=== PATIENT | female | born 1945 | race Caucasian/White ===

== ENCOUNTER 2017-06-24 10:42 | Day surgery (SDC) | payer MEDICARE, MEDICAID, SELFPAY ==
--- NOTE | 2017-06-24 | IMM_PTH ---
PATIENT: GARY MORRIS LOC: [facility] U#:[id number] AGE/SX: 71/F ROOM: RE06/24/[address]: Dr. Constantine Moreno MD : 1945 BED: DIS: 06/24/2017 SPEC #: [id number] RECD: 06/25/17 12:01 STATUS: JESUS ALBERTO SAMIRA #: [id number] MATIAS: 06/24/17 00:[address]: Constantine Moreno DEPT: IMMUNOHISTOCHEMISTRY RECD BY: Pebbles Davenport ENTERED: 06/25/17 12:03 SP TYPE: IMMUNO OTHR DR: Dr. Solomon Kaminski MD Tissues: A - Duodenum, NOS B - Stomach, NOS Procedures: H Pylori (initial) SMA (add) DESMIN (add) Vimentin (initial) S-100 (add) PHYSICIAN & INSTITUTION [place] [id number] SPECIMEN INFORMATION: Tissue Source: A ? Duodenal biopsy, B ? Antral biopsy Clinical Info: Dysphagia; diarrhea Specimen Number: [id number] A & B CPT code: 03205 x2, 47910 x3 METHODOLOGY: Deparaffinized sections of prefer/formalin-fixed tissue or PAP/DQ stained slides are incubated with monoclonal/polyclonal antibodies/oligonucleotide probes. Localization is made via biotin free immunoperoxidase method. Appropriate controls are performed and reacted as expected. Results on target cell population are indicated in the following table: RESULTS: ANTIBODY / CLONE RESULT Block A S-100 (4C4.9) negative Vimentin (V9) negative Actin (1A4) negative Desmin (CE-R-11) negative Block B H Pylori (polyclonal) negative These tests were developed and their performance characteristics determined by [facility]. They may not have been cleared or approved by the U.S. Food and Drug Administration. The FDA has determined that such clearance or approval is not necessary. INTERPRETATION: A. Duodenal biopsy: Duodenal mucosa, no pathologic diagnosis. B. Antral biopsy: Negative for Helicobacter pylori organisms. SJ:andre 06/28/17
--- NOTE | 2017-06-24 | EGD_PTH ---
PATIENT: GARY MORRIS LOC: [facility] U#:[id number] AGE/SX: 71/F ROOM: RE06/24/[address]: Dr. Constantine Moreno MD : 1945 BED: DIS: 06/24/2017 SPEC #: [id number] RECD: 06/24/17 14:29 STATUS: YURIRyan SAMIRA #: [id number] MATIAS: 06/24/17 00:[address]: Constantine Moreno DEPT: SURGICAL PATHOLOGY RECD BY: Marvin Guzman ENTERED: 06/24/17 14:30 SP TYPE: EGD BIOPSY GRICELDA DR: Dr. Solomon Kaminski MD Tissues: A - Duodenum, NOS B - Gastric mucous membrane C - Gastric mucous membrane D - Esophageal mucous membrane E - Esophageal mucous membrane F - COLON BIOPSY G - Sigmoid colon biopsy Procedures: Surgery Specimen Level IV HEADER OPERATION: EGD; colonoscopy PRE-OP DIAGNOSIS: Dysphagia; diarrhea TISSUE SUBMITTED: A ? Duodenal biopsy, B ? Antral biopsy for H. pylori and path, C ? GE junction biopsy, D ? Distal esophageal biopsy, E ? Mid esophageal biopsy, F ? Random colon biopsies, G ? Distal sigmoid polyp biopsy MICROSCOPIC DIAGNOSIS A. Duodenal biopsy: Fragment of duodenal mucosa, no pathologic diagnosis. See comment.. B. Antral biopsy: Mild gastritis. C. GE junction, biopsy: Fragment of squamous epithelium, no pathologic diagnosis. D. Distal esophageal biopsy: Fragments of squamous epithelium, no pathologic diagnosis. E. Mid esophageal biopsy: Fragments of squamous epithelium, no pathologic diagnosis. F. Colon, random biopsy: Fragments of colonic mucosa, no pathologic diagnosis. G. Distal sigmoid polyp, biopsy: Fragments of hyperplastic polyp. SJ:andre 06/25/17 COMMENT A. Immunohistochemistry ([id number]) supports the above diagnosis. B. The results of immunohistochemistry for Helicobacter pylori will be reported separately ([id number]). Case has been reviewed in consultation with Dr. Hall who concurs with the above diagnosis. IDC:AM MICROSCOPIC DESCRIPTION Slides are reviewed. B. The specimen shows fragments of gastric mucosa with chronic inflammatory cell infiltrates in the lamina propria consisting of lymphocytes and plasma cells, consistent with mild chronic gastritis. GROSS DESCRIPTION A - Received in fixative is one container labeled with the patient's name and designated duodenal biopsy. The specimen consists of one irregular fragment of light [place] soft tissue that measures 0.4 x 0.3 x 0.1 cm. The specimen is totally submitted in one cassette. B - Received in fixative is one container labeled with the patient's name and designated antral biopsy. The specimen consists of multiple irregular fragments of light [place] soft tissue that in aggregate measure 1 x 0.2 x 0.1 cm. The specimen is totally submitted in one cassette. C - Received in fixative is one container labeled with the patient's name and designated GE junction biopsy. The specimen consists of two irregular fragments of light [place] soft tissue that in aggregate measure 0.5 x 0.3 x 0.1 cm. The specimen is totally submitted in one cassette. D - Received in fixative is one container labeled with the patient's name and designated distal esophageal biopsy. The specimen consists of one irregular fragment of light [place] soft tissue that measures 0.5 x 0.2 x 0.1 cm. The specimen is totally submitted in one cassette. E - Received in fixative is one container labeled with the patient's name and designated mid esophageal biopsy. The specimen consists of multiple irregular fragments of light [place] soft tissue that in aggregate measure 1 x 0.2 x 0.1 cm. The specimen is totally submitted in one cassette. F - Received in fixative is one container labeled with the patient's name and designated random colon biopsy. The specimen consists of multiple irregular fragments of light [place] soft tissue that in aggregate measure 1.5 x 0.5 x 0.1 cm. The specimen is totally submitted in one cassette. G - Received in fixative is one container labeled with the patient's name and designated distal sigmoid polyp biopsy. The specimen consists of multiple irregular fragments of light [place] soft tissue that in aggregate measure 0.5 x 0.5 x 0.1 cm. The specimen is totally submitted in one cassette. / SJ:andre 06/24/17 TC:1 CPT: 14372 x7
[2017-06-24 11:00] VITALS: BP 151/73; PULSE 77; RESP 16; TEMP 36.9; O2SAT 98; BMI 23.1
[2017-06-24 12:50] VITALS: BP 135/73; BP 151/73; PULSE 77; RESP 18; TEMP 36.6; O2SAT 99
--- NOTE | 2017-06-24 12:55 | OP.PCM_ITS ---
Problem List (1) Diarrhea Status: Acute (2) Difficulty swallowing Status: Acute Qualifiers: Report of Operation Date of Procedure: 06/24/17 Pre-Operative Diagnosis: Difficulties with swallowing with obstruction to pills. Weight loss. Intractable diarrhea Post-Operative Diagnosis: Moderate hiatal hernia, mild distal esophagitis, active antral gastritis. Normal-appearing colon except for diverticulosis. 5 mm sessile polyp of the distal sigmoid. Surgery/Procedure Performed:: Esophagogastroduodenoscopy with duodenal and antral and EG junction and distal esophagus and mid esophageal biopsies colonoscopy with random colonic biopsies and cold forcep biopsy removal of distal sigmoid polyp Description of Surgical Findings:: Timeout and informed consent was obtained. 71-year-old female was taken to the endoscopy suite. Her oropharynx was anesthetized with Topex. She was placed in a left lateral decubitus position. Because of increased procedural risks she underwent monitored anesthesia care. GAF gastroscope was inserted and soft ligament advanced proximal mid distal esophagus. The EG junction was at 35 cm. Moderate hiatal hernia noted. Some very minimal distal esophagitis suspected. The scope was advanced in the stomach. Diffuse erythema of the antrum noted. The scope was advanced through the pylorus and the first and second portions of the duodenum were inspected. This did not appear to be grossly remarkable. Duodenal biopsy was obtained. The scope was withdrawn back in the stomach retroflexed. The hiatal hernia noted. The cardia otherwise was not remarkable. The scope was placed back in antegrade viewing position. The what appeared to be active antral gastritis was identified. Biopsies were obtained of the antrum. Excess fluid and air was aspirated free. The scope was withdrawn to the e.g. junction where biopsy was obtained. Additional biopsies were then obtained of the distal and midesophagus. Excess fluid and air was aspirated free the procedure was completed with the patient tolerating it well. Digital rectal exam performed. Slightly lax anal tone. Moderate internal/ external hemorrhoids. No mass lesions. Flexible colonoscope inserted the rectum advanced was somewhat tortuous sigmoid colon then fairly readily advanced to the transverse colon with transabdominal pressure was nicely advanced to the cecum. The cecum ileocecal valve area was nicely achieved. Bowel prep was quite good. The scope was carefully withdrawn from the ascending transverse descending and sigmoid colon. Sigmoid diverticulosis was identified. There is no evidence of acute inflammatory change. Random colonic biopsies were obtained throughout the colon. What appear to be a diminutive 5 mm sessile polyp of the distal sigmoid was identified. Cold forceps were used to sample and eradicate that lesion. The scope was withdrawn in the rectum retroflex anorectal verge inspected hemorrhoidal changes noted. Excess fluid and air was aspirated free the procedure was completed with the patient tolerating it well. Impression Moderate hiatal hernia. Active antral gastritis. Biopsies pending. The patient is already on twice-daily treatment with omeprazole. Grossly normal-appearing colon except for sigmoid diverticulosis. Diminutive sessile polyp of the distal sigmoid. Random colonic biopsies pending. The active gastritis likely correlates with the patient's symptoms of dysphagia as does the presence of her hiatal hernia. We will await biopsy results. The patient unfortunately is already on proton pump inhibitor therapy. Would need to consider whether the addition of sucralfate Would offer benefit. Colon Grossly appears to be normal other than for diverticulosis and a diminutive polyp which was removed. Random colonic biopsies are pending. Grossly the etiology to her diarrhea is not determined. Copies of this report will be returned to her primary care physician Dr. Gordy Moreno M.D., F.A.C.S. Previous colonoscopy was remote next colonoscopy recommended approximately 5 years pending pathology on the polyp Scope was inserted at 1219. And then the upper endoscopy was completed at 1225. The lower endoscopy started at 1229. The cecum was reached at 1236. The procedure was completed at 1243. Type of Anesthesia:: MAC
[2017-06-24 13:00] VITALS: BP 150/73; BP 151/73; PULSE 72; RESP 18; O2SAT 97
[2017-06-24 13:05] VITALS: BP 119/69; BP 151/73; PULSE 74; RESP 18; O2SAT 95
[2017-06-24 13:10] VITALS: BP 138/68; BP 151/73; PULSE 68; RESP 18; TEMP 36.8; O2SAT 94
[2017-06-24 13:43] VITALS: BP 151/73
== END 2017-06-24 13:43 | disposition home or self-care (01) ==
LOC: EN 10:43 → AC 10:46
PROVIDERS: Family Provider Family Medicine Geriatric Medicine; PCP Family Medicine Geriatric Medicine; Visit Provider Surgery
PROC: 0DJD8ZZ Inspection of Lower Intestinal Tract, Via Natural or Artificial Opening Endoscopic (ICD-10-PCS; CPT 45378; principal; 2017-06-24 11:55)
DX: K63.5 Polyp of colon (principal); R13.12 Dysphagia, oropharyngeal phase; R19.7 Diarrhea, unspecified; R63.4 Abnormal weight loss; K44.9 Diaphragmatic hernia without obstruction or gangrene; K20.9 Esophagitis, unspecified; K29.50 Unspecified chronic gastritis without bleeding; Z86.73 Personal history of transient ischemic attack (TIA), and cerebral infarction without residual deficits; K21.9 Gastro-esophageal reflux disease without esophagitis; I10 Essential (primary) hypertension; F17.200 Nicotine dependence, unspecified, uncomplicated; F41.9 Anxiety disorder, unspecified; F32.9 Major depressive disorder, single episode, unspecified
CPT/HCPCS: 43239; 45380; 88305; 88341; 88342; J7120

== ENCOUNTER → 2017-07-01 13:49 | Outpatient (CLI) | payer MEDICARE, MEDICAID, SELFPAY ==
[2017-07-01 15:19] LABS: Absolute Lymphocyte Count 1.83 X10^3/ul (0.83-4.51); Absolute Neutrophil Count 8.1 X10^3/uL (2.0-7.7); Basophil# 0.04 X10^3/uL; Basophil% 0.4 % (0-1); Eosinophil# 0.07 X10^3/uL; Eosinophils% 0.7 % (0-5); Hematocrit 43.3 % (37-47); Lymphocyte # 1.83 X10^3/ul (4.0); Lymphocyte % 17.2 % (19-41); Mean Corp Hgb Conc 32.3 g/gl (32-36); Mean Corpuscular Hgb 30.2 pg (27.0-32.0); Mean Corpuscular Volume 93.3 fL (81-99); Mean Platelet Vol. 10.9 fl (6.2-12.0); Monocyte% 5.6 % (0-10); Neutrophil # 8.09 X10^3/uL (2.7-7.7); Platelet Count 308 K/mm3 (150-450); RBC Distribution Width CV 13.2 % (11.6-14.6); Red Blood Count 4.64 M/mm3 (4.2-5.4); White Blood Count 10.6 K/mm3 (4.4-11.0)
[2017-07-01 15:36] LABS: POSITIVE COUNT NO; POSITIVE DIFFERENTIAL NO; POSITIVE MORPHOLOGY NO
[2017-07-01 16:00] LABS: AST(SGOT) 11 U/L (15-37); Alanine Aminotransfer ALT/SGPT 16 U/L (13-56); Albumin, Serum 3.6 g/dL (3.2-5.0); Alkaline Phosphatase 107 U/L (45-117); Anion Gap 8 (5-15); BUN 15 mg/dL (7-18); BUN/Creat Ratio 20.4 RATIO (10-20); Chloride 103 mmol/L (98-107); Creatinine, Serum 0.74 mg/dL (0.55-1.02); EST Glomerular Filtration Rate 83 mL/min (>60); Est Glom Filt Rate - Afr Amer 100 mL/min (>60); Globulin 3.5 g/dL (2.2-4.2); Glucose 119 mg/dL (74-106); Potassium 4.2 mmol/L (3.5-5.1); Protein, Total 7.1 g/dL (6.4-8.2); Sodium Level 142 mmol/L (136-145); Thyroid Stim Hormone (TSH) 0.56 uIU/mL (0.358-3.74)
[2017-07-02 10:43] LABS: Vitamin D,25 Hydroxy 19.7 ng/mL (29.95-100.01)
== END ==
PROVIDERS: Family Provider Family Medicine Geriatric Medicine; PCP Family Medicine Geriatric Medicine; Visit Provider Family Medicine Geriatric Medicine
DX: E11.9 Type 2 diabetes mellitus without complications (principal); I10 Essential (primary) hypertension; E55.9 Vitamin D deficiency, unspecified
CPT/HCPCS: 36415; 80053; 82306; 84443; 85025

== ENCOUNTER → 2017-09-07 15:07 | Outpatient (CLI) | payer MEDICARE, MEDICAID, SELFPAY ==
[2017-09-07 16:50] LABS: Absolute Lymphocyte Count 2.46 X10^3/ul (0.83-4.51); Absolute Neutrophil Count 7.7 X10^3/uL (2.0-7.7); Basophil# 0.03 X10^3/uL; Basophil% 0.3 % (0-1); Eosinophil# 0.16 X10^3/uL; Eosinophils% 1.4 % (0-5); Hematocrit 42.9 % (37-47); Lymphocyte # 2.46 X10^3/ul (4.0); Lymphocyte % 22.1 % (19-41); Mean Corp Hgb Conc 32.6 g/gl (32-36); Mean Corpuscular Hgb 29.2 pg (27.0-32.0); Mean Corpuscular Volume 89.6 fL (81-99); Mean Platelet Vol. 9.9 fl (6.2-12.0); Monocyte# 0.72 X10^3/uL; Monocyte% 6.5 % (0-10); Neutrophil # 7.74 X10^3/uL (2.7-7.7); Neutrophil % 69.6 % (47-70); Platelet Count 279 K/mm3 (150-450); RBC Distribution Width SD 42.6 fl (35.1-43.9); Red Blood Count 4.79 M/mm3 (4.2-5.4); White Blood Count 11.1 K/mm3 (4.4-11.0)
[2017-09-07 16:52] LABS: POSITIVE COUNT NO; POSITIVE DIFFERENTIAL NO; POSITIVE MORPHOLOGY NO
[2017-09-07 17:05] LABS: AST(SGOT) 11 U/L (15-37); Alanine Aminotransfer ALT/SGPT 15 U/L (13-56); Albumin, Serum 3.7 g/dL (3.2-5.0); Alkaline Phosphatase 112 U/L (45-117); Anion Gap 8 (5-15); BUN 11 mg/dL (7-18); Chloride 104 mmol/L (98-107); Creatinine, Serum 0.73 mg/dL (0.55-1.02); EST Glomerular Filtration Rate 83 mL/min (>60); Est Glom Filt Rate - Afr Amer 101 mL/min (>60); Globulin 3.6 g/dL (2.2-4.2); Glucose 107 mg/dL (74-106); Potassium 4.3 mmol/L (3.5-5.1); Protein, Total 7.3 g/dL (6.4-8.2); Sodium Level 142 mmol/L (136-145)
--- NOTE | 2017-09-07 17:31 | CT_ITS ---
STUDY: CT ABDOMEN AND PELVIS WITHOUT CONTRAST REASON FOR EXAM: Female, 72 years old. Abdominal pain and diarrhea RADIATION DOSAGE (If Supplied By Facility): CTDIvol = ( 6.54 ) mGy, DLP = ( 294.08 ) mGycm TECHNIQUE: Transaxial images were obtained from the dome of the diaphragm to the symphysis pubis with oral contrast, and without intravenous contrast. Sagittal and coronal images were reconstructed. Individualized dose optimization techniques were used for this CT. COMPARISON: None. FINDINGS: There are mild emphysematous changes of the lungs. There is linear fibrosis of the right middle lobe and left lingula. The visualized portions of the heart are within normal limits. There is mild dilatation of the intrahepatic biliary ductal system. There is dilatation of the CBD to the level of the ampulla measuring up to 15 mm. No obstructing radiopaque ductal calculus is identified. There are surgical clips in the gallbladder fossa consistent with a prior cholecystectomy. Normal spleen. Normal pancreas. Normal bilateral adrenal glands. Normal right kidney. There is a 1.4 cm left renal cyst. Normal visualized stomach. Normal small intestine. There is mild sigmoid diverticulosis. There is sigmoid wall thickening. Evaluation of the sigmoid is limited due to nonopacification with oral contrast. There is non-visualization of the appendix. There are calcified plaques of the abdominal aorta. Normal inferior vena cava. Normal retroperitoneum. Normal urinary bladder. There is absence of the uterus consistent with a prior hysterectomy. Normal abdominal wall. There mild diffuse degenerative changes of the visualized thoracolumbar spine. There is a grade 1 anterolisthesis of L4 relative to L5. CT/Abdomen/Pelvis without Cont IMPRESSION: 1. Mild sigmoid diverticulosis. There is diffuse sigmoid wall thickening. Evaluation of the sigmoid is limited due to nonopacification with oral contrast. Diverticulitis or neoplastic process cannot be excluded. 2. There is mild dilatation of the intrahepatic biliary ductal system. There is dilatation of the CBD to the level of the ampulla measuring up to 15 mm. 3. There are mild emphysematous changes of the lungs. There are fibrotic changes of the right middle and left middle lobes. 4. 1.4 cm left renal cyst. 5. Status post hysterectomy. 6. Mild diffuse degenerative changes of the visualized thoracolumbar spine. Grade 1 anterolisthesis of L4 relative to L5. 7. There is no evidence of free intra-abdominal or intrapelvic air or fluid. Electronically Signed: Houston Vu MD at 18:30 EDT , Service support ,
== END ==
PROVIDERS: Family Provider Family Medicine Geriatric Medicine; PCP Family Medicine Geriatric Medicine; Visit Provider Family Medicine Geriatric Medicine
DX: E86.0 Dehydration (principal); R10.9 Unspecified abdominal pain; R19.7 Diarrhea, unspecified; N39.0 Urinary tract infection, site not specified
CPT/HCPCS: 36415; 74176; 80053; 85025; 87086; 87088; 87186

== ENCOUNTER → 2017-09-09 12:10 | Outpatient (CLI) | payer MEDICARE, MEDICAID, SELFPAY | PROVIDERS: Family Provider Family Medicine Geriatric Medicine; PCP Family Medicine Geriatric Medicine; Visit Provider Family Medicine Geriatric Medicine | DX: R19.7 Diarrhea, unspecified (principal) | CPT/HCPCS: 36415; 82274; 83630; 87493; 87506 ==

== ENCOUNTER → 2018-01-04 10:41 | Outpatient (CLI) | payer MEDICARE, SELFPAY ==
--- NOTE | 2018-01-04 10:44 | CT_ITS ---
STUDY: LOW DOSE CT LUNG CANCER SCREENING REASON FOR EXAM: Female, 72 years old. 74 pack year smoker. RADIATION DOSAGE (If Supplied By Facility): CTDIvol = ( 2.01 ) mGy, DLP = ( 70.47 ) mGycm TECHNIQUE: No contrast was administered. Low dose technique was utilized (average mAS-38 and kVp 120). 1.25 mm axial source images with a slice interval of 1.25-mm were reconstructed in lung windows. 2.5 mm axial source images with a slice interval of 2.5-mm were reconstructed in lung windows. 5.0 mm axial source images with a slice interval of 5.0-mm were reconstructed in soft tissue windows. Nodule measured using lung windows on PACS and/or independent workstation with automated measurement of minimum and maximum diameter. Nodule measurement reported as average diameter rounded to the nearest whole number. Growth is defined as an increase ins size of greater than 1.5 mm. COMPARISON: Comparison is made with prior CT scan of thorax dated January 08, 2015. NODULES: There is a 1.5 cm x 2.4 cm irregular triangular shaped density in the anterior lateral aspect of the right middle lobe. This has increased in size as compared to prior study. Correlation with a PET scan is recommended. Increased linear markings in the lateral aspect of the right lower lobe suggestive of scarring. There is also evidence of a 1.8 cm x 1 cm irregular density in the anterior lateral aspect of the left lower lobe. This may represent scarring. This is essentially unchanged. Total lung nodules (excluding granulomas): Emphysema: Hyperinflation. Emphysematous changes more prominent in the upper lobes. Endobronchial lesion: None Aorta: Atherosclerotic calcification. Coronary arteries: Coronary artery calcification. Heart: Unremarkable. Pulmonary artery: Prominence of the pulmonary hilar arteries suggestive of a possible hypertension. Mediastinal nodes: Multiple small mediastinal lymph nodes. Other chest and abdominal findings: The chest changes of the thoracic spine. CT/Low Dose CT Lung Screening IMPRESSION: Lung-RADS category 4B - Chest CT with or without contrast, PET/CT and/or tissue sampling can be obtained depending on the probability of malignancy and comorbidities. IMPORTANT NOTES FOR USE: ACR Lung-RADS Version 1.0 Assessment Categories Release Date: August 14, 2013 Category: Coded 0-4 bases on nodule(s) with highest degree of suspicion. Negative screen is defined as categories 1 and 2; a positive screen is defined as categories 3 and 4. Category 3 and 4A nodules that are unchanged on interval CT should be coded as category 2, and individuals returned to screening in 12 months. Category 4X: Category 3 or 4 nodules with additional imaging findings that increase the suspicion of lung cancer, such as spiculation, GGN that doubles in size in 1 year, enlarged lymph notes, etc. Category Modifiers: S (significant finding unrelated to lung cancer) and C (prior history of treated lung cancer) may be added to the 0-4 Lung-RADS Electronically Signed: Dre Pham MD at 10:12 EDT Tel [phone], Service support ,
== END ==
PROVIDERS: Family Provider Family Medicine; PCP Family Medicine; Visit Provider Family Medicine
DX: Z12.2 Encounter for screening for malignant neoplasm of respiratory organs (principal); Z87.891 Personal history of nicotine dependence
CPT/HCPCS: G0297

== ENCOUNTER → 2018-01-17 09:19 | Outpatient (CLI) | payer MEDICARE, SELFPAY ==
--- NOTE | 2018-01-17 10:00 | PET_ITS ---
EXAMINATION: FDG PET CT INDICATIONS: A 72-year-old female with reported history of pulmonary nodularity. COMPARISON EXAMINATION: CT of the chest report dated 01/04/18. TECHNIQUE: Following the intravenous administration of 16.57 mCi of F-18 deoxyglucose via the left antecubital fossa, multiplanar image acquisitions of the neck, chest, abdomen and pelvis to level of mid thigh, obtained at one hour post radiopharmaceutical administration contemporaneously interpreted with the current CT of the neck, chest, abdomen and pelvis to level of mid thigh, dated 01/17/[address] of the chest report dated 01/04/18 reveal: SERUM GLUCOSE LEVEL: 119 mg/dl. HEIGHT: 63 inches. WEIGHT: 123 lbs. FINDINGS: 1. There is no quantitative scintigraphic evidence of abnormal increased glucose metabolism within the context of the right lower anterolateral hemithorax pulmonary parenchyma, lateral segment right middle lobe to correlate with a noncalcified approximate 15.9 mm density defined on [address] of the chest dated 01/17/18. 2. Normal physiologic distribution of the radiopharmaceutical is apparent in the hepatic (*) and splenic parenchyma, both renal units, bladder and visualized intestinal tract. There is uniform distribution of the radiopharmaceutical concentration defined in the visualized cerebellar hemispheres and cerebral cortical structures.? Diffuse intestinal tract activity is noted throughout all four quadrants of the abdominal-pelvic retroperitoneum, mesentery consistent with normal physiologic distribution of the radiopharmaceutical. Prominent glucose metabolism is defined in the descending thoracic aorta. Prominent glucose concentration is observed in the anterior neck, laryngeal structures. Review of the co-registered metabolic, morphologic data sets demonstrates uptake localized to the cricopharyngeus musculature most consistent with physiologic distribution of the radiopharmaceutical. Pertinent CT findings are as follows. CHEST: Emphysematous changes are noted in the bilateral upper lung zones. There are no additional parenchymal densities-nodules noted in the right-left hemithorax demonstrating discernible, quantitatively significant increased glucose metabolism. Right-left axillary subcentimeter soft tissue densities with fatty hilus formation are non-glucose avid. Atherosclerotic calcification is defined in the thoracic aorta without evidence of dilatation, aneurysm formation. Coronary arterial calcification is observed. ABDOMEN AND PELVIS: The gallbladder is surgically absent. Atherosclerotic calcification is defined in the abdominal aorta without evidence of dilatation, aneurysm formation. Abdominal-pelvic arterial calcification is demonstrated. Colonic diverticulosis is defined. The uterus appears surgically absent. Bilateral subcentimeter inguinal soft tissue densities with fatty hilus formation are ametabolic. SKELETAL: Degenerative changes defined in the cervical, thoracic and lumbar spine demonstrate no evidence for glucose hypermetabolism. PET/PET/CT Tumor Base -Thigh Init IMPRESSION: 1. NEGATIVE EXAMINATION. There is no quantitative scintigraphic evidence of abnormal increased glucose metabolism within the context of the right lower anterolateral hemithorax pulmonary parenchyma, lateral segment right middle lobe to correlate with a noncalcified approximate 15.9 mm density defined on [address] of the chest dated 01/17/18. 2. Anatomic stability may be ensured in the ametabolic right hemithorax pulmonary parenchymal density with repeat CT of the thorax in three months. (Dalila, Seminars in Thoracic and Cardiovascular Surgery 14:292, 2002). 3. Prominent glucose concentration observed in the descending thoracic, aorta is commensurate with activated leukocytes associated with atherosclerotic plaque formation. (Suad et al, Clinical Nuclear Medicine 29:93, 2004). Electronic Signature Regan Go D.O. Electronically Signed: Regan Go DO at 23:29 EDT Tel , Service support ,
== END ==
PROVIDERS: Family Provider Family Medicine; PCP Family Medicine; Referring Provider Family Medicine; Visit Provider Family Medicine
DX: R91.1 Solitary pulmonary nodule (principal); F17.200 Nicotine dependence, unspecified, uncomplicated
CPT/HCPCS: 78815; A9552

== ENCOUNTER → 2018-06-09 10:57 | Outpatient (CLI) | payer MEDICARE, SELFPAY ==
[2018-06-09 12:01] LABS: Absolute Lymphocyte Count 2.07 X10^3/ul (0.83-4.51); Absolute Neutrophil Count 8.3 X10^3/uL (2.0-7.7); Basophil# 0.05 X10^3/uL; Basophil% 0.4 % (0-1); Eosinophil# 0.15 X10^3/uL; Eosinophils% 1.3 % (0-5); Hematocrit 43.1 % (37-47); Hemoglobin 13.7 g/dl (12.0-15.0); Lymphocyte # 2.07 X10^3/ul (4.0); Lymphocyte % 18.3 % (19-41); Mean Corp Hgb Conc 31.8 g/gl (32-36); Mean Corpuscular Hgb 29.8 pg (27.0-32.0); Mean Corpuscular Volume 93.9 fL (81-99); Mean Platelet Vol. 10.8 fl (6.2-12.0); Monocyte# 0.68 X10^3/uL; Neutrophil # 8.33 X10^3/uL (2.7-7.7); Neutrophil % 73.7 % (47-70); Platelet Count 259 K/mm3 (150-450); RBC Distribution Width CV 14.2 % (11.6-14.6); RBC Distribution Width SD 48.4 fl (35.1-43.9); Red Blood Count 4.59 M/mm3 (4.2-5.4); White Blood Count 11.3 K/mm3 (4.4-11.0)
[2018-06-09 12:03] LABS: POSITIVE COUNT NO; POSITIVE DIFFERENTIAL NO; POSITIVE MORPHOLOGY NO
[2018-06-09 12:24] LABS: AST(SGOT) 12 U/L (15-37); Alanine Aminotransfer ALT/SGPT 17 U/L (13-56); Albumin, Serum 3.6 g/dL (3.2-5.0); Alkaline Phosphatase 99 U/L (45-117); Anion Gap 6 (5-15); BUN 13 mg/dL (7-18); BUN/Creat Ratio 16.3 RATIO (10-20); Calcium,Total 8.6 mg/dL (8.5-10.1); Chloride 107 mmol/L (98-107); Cholesterol 113 mg/dL (200); EST Glomerular Filtration Rate 75 mL/min (>60); Est Glom Filt Rate - Afr Amer 91 mL/min (>60); Globulin 3.5 g/dL (2.2-4.2); Glucose 120 mg/dL (74-106); High Density Lipoprotein 52 mg/dL; Potassium 4.5 mmol/L (3.5-5.1); Protein, Total 7.1 g/dL (6.4-8.2); Sodium Level 143 mmol/L (136-145); Thyroid Stim Hormone (TSH) 1.84 uIU/mL (0.358-3.74); Triglycerides 84 mg/dL; Very Low Density Lipoprotein 17 mg/dL (5-40)
== END ==
PROVIDERS: Family Provider Family Medicine; PCP Family Medicine; Visit Provider Family Medicine
DX: E03.9 Hypothyroidism, unspecified (principal); I10 Essential (primary) hypertension; E78.5 Hyperlipidemia, unspecified
CPT/HCPCS: 36415; 80053; 80061; 84443; 85025

== ENCOUNTER → 2019-01-05 11:55 | Outpatient (CLI) | payer MEDICARE, SELFPAY ==
--- NOTE | 2019-01-05 11:57 | CT_ITS ---
STUDY: LOW DOSE CT LUNG CANCER SCREENING REASON FOR EXAM: Female, 73 years old. 57 pack-year history. RADIATION DOSAGE (If Supplied By Facility): CTDIvol = ( 2.01 ) mGy, DLP = ( 69.97 ) mGycm TECHNIQUE: No contrast was administered. Low dose technique was utilized (average mAS-38 and kVp 120). 1.25 mm axial source images with a slice interval of 1.25-mm were reconstructed in lung windows. 2.5 mm axial source images with a slice interval of 2.5-mm were reconstructed in lung windows. 5.0 mm axial source images with a slice interval of 5.0-mm were reconstructed in soft tissue windows. Nodule measured using lung windows on PACS and/or independent workstation with automated measurement of minimum and maximum diameter. Nodule measurement reported as average diameter rounded to the nearest whole number. Growth is defined as an increase ins size of greater than 1.5 mm. COMPARISON: PET/CT scan, January 17, 2018 NODULES: Nodule #: 1 Density: Solid Lung location: Right middle lobe: 0 point cm from pleura Location in series: Series Number: 2 Image: 164 Size - D1 x D2 mm: 15 x 9 mm: 12 mm average diameter Margin: Smooth Shape: Oval Calcification: No Fat: No Temporal comparison: Enlarged Total lung nodules (excluding granulomas): 1 Emphysema: There is diffuse emphysematous changes of lungs. Endobronchial lesion: None Aorta: Stable atherosclerotic changes of the thoracic aorta without aneurysm. Coronary arteries: Coronary artery calcifications. Heart: Normal in size Pulmonary artery: Normal Mediastinal nodes: Not Other chest and abdominal findings: Degenerative changes of the thoracic spine. CT/Low Dose CT Lung Screening IMPRESSION: 1. Enlarging soft tissue density in the right middle lobe. This may be partially atelectatic. This did not demonstrate activity on the PET scan suggesting benignity. 2. There are stable emphysematous changes. IMPORTANT NOTES FOR USE: ACR Lung-RADS Version 1.0 Assessment Categories Release Date: August 14, 2013 Category: Coded 0-4 bases on nodule(s) with highest degree of suspicion. Negative screen is defined as categories 1 and 2; a positive screen is defined as categories 3 and 4. Category 3 and 4A nodules that are unchanged on interval CT should be coded as category 2, and individuals returned to screening in 12 months. Category 4X: Category 3 or 4 nodules with additional imaging findings that increase the suspicion of lung cancer, such as spiculation, GGN that doubles in size in 1 year, enlarged lymph notes, etc. Category Modifiers: S (significant finding unrelated to lung cancer) and C (prior history of treated lung cancer) may be added to the 0-4 Lung-RADS Electronically Signed: Terrence Felix DO at 21:40 EDT Tel [phone], Service support ,
== END ==
PROVIDERS: Family Provider Family Medicine; PCP Family Medicine; Referring Provider Family Medicine; Visit Provider Family Medicine
DX: Z12.2 Encounter for screening for malignant neoplasm of respiratory organs (principal); F17.210 Nicotine dependence, cigarettes, uncomplicated
CPT/HCPCS: G0297

== ENCOUNTER → 2019-06-22 11:30 | Outpatient (CLI) | payer MEDICARE, SELFPAY ==
[2019-06-22 15:35] LABS: Absolute Lymphocyte Count 1.58 X10^3/uL (0.83-4.51); Absolute Neutrophil Count 7.1 X10^3/uL (2.0-7.7); Basophil# 0.08 X10^3/uL; Basophil% 0.9 % (0-1); Eosinophil# 0.08 X10^3/uL; Eosinophils% 0.9 % (0-5); Hematocrit 40.9 % (37-47); Hemoglobin 12.8 g/dL (12.0-15.0); Lymphocyte # 1.58 X10^3/ul (4.0); Mean Corp Hgb Conc 31.3 g/dL (32-36); Mean Corpuscular Hgb 29.1 pg (27.0-32.0); Mean Platelet Vol. 10.4 fl (6.2-12.0); Monocyte# 0.48 X10^3/uL; Monocyte% 5.2 % (0-10); NRBC Flagged by Analyzer 0 % (0-5); Neutrophil # 7.05 X10^3/uL (2.7-7.7); Neutrophil % 75.8 % (47-70); Platelet Count 290 K/mm3 (150-450); RBC Distribution Width CV 13.2 % (11.6-14.6); White Blood Count 9.3 K/mm3 (4.4-11.0)
[2019-06-22 16:09] LABS: ALB/GLOB Ratio 0.9 RATIO (0.9-2.4); AST(SGOT) 15 U/L (15-37); Alanine Aminotransfer ALT/SGPT 14 U/L (13-56); Albumin, Serum 3.4 g/dL (3.2-5.0); Alkaline Phosphatase 80 U/L (45-117); Anion Gap 5 (5-15); BUN 14 mg/dL (7-18); BUN/Creat Ratio 17.8 RATIO (10-20); Calcium,Total 8.9 mg/dL (8.5-10.1); Chloride 104 mmol/L (98-107); Cholesterol 108 mg/dL (200); Creatinine, Serum 0.79 mg/dL (0.55-1.02); EST Glomerular Filtration Rate 76 mL/min (>60); Est Glom Filt Rate - Afr Amer 92 mL/min (>60); Globulin 3.7 g/dL (2.2-4.2); Glucose 111 mg/dL (74-106); High Density Lipoprotein 42 mg/dL; Potassium 4.3 mmol/L (3.5-5.1); Protein, Total 7.1 g/dL (6.4-8.2); Sodium Level 139 mmol/L (136-145); T4 Free Direct 1.34 ng/dL (0.76-1.46); Thyroid Stim Hormone (TSH) 0.63 uIU/mL (0.358-3.74); Triglycerides 104 mg/dL; Very Low Density Lipoprotein 21 mg/dL (5-40)
[2019-06-22 16:20] LABS: Vitamin D,25 Hydroxy 13.2 ng/mL
== END ==
PROVIDERS: PCP Family Medicine; Visit Provider Family Medicine
DX: E03.9 Hypothyroidism, unspecified (principal); E78.5 Hyperlipidemia, unspecified; M81.0 Age-related osteoporosis without current pathological fracture
CPT/HCPCS: 36415; 80053; 80061; 82306; 84439; 84443; 85025

== ENCOUNTER 2019-09-25 12:35 | Emergency (ER) | payer MEDICARE, MEDICAID, SELFPAY ==
[2019-09-25 12:36] VITALS: BP 178/89; PULSE 64; RESP 18; TEMP 36.6; O2SAT 96; BMI 21.4
--- NOTE | 2019-09-25 13:10 | RAD_ITS ---
STUDY: X-RAY - UNILATERAL RIBS ( RIGHT ) WITH CHEST REASON FOR EXAM: Female, 74 years old. Fall 2 weeks ago, right sided rib pain, difficulty breathing, pain with coughing TECHNIQUE - RIBS: 4 view(s) of the ribs. TECHNIQUE - CHEST: Single PA view of the chest. COMPARISON: Comparison is made with prior examination dated April 23, 2010. FINDINGS - RIBS: Nondisplaced fractures involving the right seventh and eighth ribs anterolaterally. FINDINGS - CHEST: Hyperinflation. Stable increased markings at the lung bases suggestive of bibasilar scarring. Scarring of the right costophrenic angle. Normal size heart. Normal mediastinum and rolf. There is prominence of the pulmonary hilar arteries without peripheral pulmonary vascular congestion, suggesting pulmonary hypertension. There is atherosclerotic calcification of the aortic arch with tortuosity. There are diffuse degenerative changes of the visualized thoracic spine. Normal visualized ribs, clavicles, and shoulders. There is no demonstrated abnormality of the visualized soft tissue structures of the upper abdomen. RAD/Ribs Uni Min 3V w/PA Chest IMPRESSION: RIBS: Nondisplaced fractures involving the anterolateral aspects of the right seventh and eighth ribs. CHEST: Hyperinflation. Stable increased markings at the lung bases suggestive of scarring. Electronically Signed: Dre Pham, at 13:30 EDT , Service support ,
--- NOTE | 2019-09-25 13:12 | ED.DCSUM_ITS ---
- ER Visit Summary Date of Service: 09/25/19 Chief Complaint: Fall History of Present Illness: The patient is a 74 F who presents after a fall that occurred 2 weeks ago. Patient states she fell and hit the right side of her chest on the arm of a couch. Patient states her pain is over the right side of her chest. Patient describes her pain as sharp. Patient states the pain is worse with coughing and with movement. Patient does admit to some mild shortness of breath. Patient denies any paresthesias or weakness. Patient denies any head injury or loss of consciousness. Patient denies any other injuries. Physical Examination: Vital signs are stable. Patient is afebrile. Patient is in no acute distress. Oral mucosa is pink and moist. Neck is supple. Trachea is midline. There is no JVD. Heart was regular rate and rhythm. Lungs are clear and equal bilaterally. Abdomen is soft. Bowel sounds are normal. There is no tenderness. There is reproducible tenderness over the right ribs. There is no bony crepitance or step-off. There is no ecchymosis noted. Cranial nerves II through XII are intact. There are no focal motor or sensory deficits. Test Results: X-rays of the right ribs were obtained. There are acute fractures of the seventh and eighth ribs. These were interpreted by the radiologist and reviewed by myself. Emergency Department Course and Treatment: Patient was given a dose of [place] here. She was given a prescription for a short course of [place]. Patient was instructed to use ice to the area. Patient was instructed to take 10-15 deep breaths every hour while awake to prevent atelectasis and pneumonia. Patient was instructed to follow-up with her primary care physician in 5 to 7 days. Patient understood and was agreeable with the plan. All questions were answered. Disposition: Discharge home Impression: Acute fractures right seventh and eighth ribs This note was generated with [employer] dictation software. It may contain incorrect words, spelling, and punctuation that were not noted in review of the chart prior to signing ED Disposition - Plan for ED Patient: Disposition: Home or Assisted Living Diagnosis: Right rib fracture Instructions: ED Rib Fx Prescriptions: Hydrocodone Bitart/Apap 5-325 [[place] 5MG-325MG] 1 tab PO Q6H PRN PRN 3 Days #10 tab PRN Reason: Pain Prescription Printed Referrals: Kaela Crane MD [Primary Care Provider] - 5-7 Days
[2019-09-25] MEDS: HYDROcodone Bitartrate/Apap 5/325 Tablet PO (15:15)
== END 2019-09-25 15:17 | disposition home or self-care (01) ==
PROVIDERS: Emergency Provider Emergency Medicine; PCP Family Medicine
DX: S22.41XA Multiple fractures of ribs, right side, initial encounter for closed fracture (principal); W08.XXXA Fall from other furniture, initial encounter; Y93.9 Activity, unspecified; Y92.9 Unspecified place or not applicable; E05.00 Thyrotoxicosis with diffuse goiter without thyrotoxic crisis or storm; Z79.899 Other long term (current) drug therapy; F17.200 Nicotine dependence, unspecified, uncomplicated
CPT/HCPCS: 71101; 99284

== ENCOUNTER 2019-10-10 17:13 | Emergency (ER) | payer MEDICARE, MEDICAID, SELFPAY ==
[2019-10-10 17:16] VITALS: BP 187/113; PULSE 80; RESP 18; TEMP 36.7; O2SAT 94; BMI 20.3
--- NOTE | 2019-10-10 17:29 | CT_ITS ---
STUDY: CT ABDOMEN AND PELVIS WITH CONTRAST REASON FOR EXAM: Female, 74 years old. FALL,RUQ PAIN,HEMATOCHEZIA,RECENT FX RIBS RADIATION DOSAGE (If Supplied By Facility): CTDIvol = ( 13.40 ) mGy, DLP = ( 468.74 ) mGycm TECHNIQUE: Transaxial images were obtained from the dome of the diaphragm to the symphysis pubis without oral contrast. IV 100mL Isovue-300 was administered. Sagittal and coronal images were reconstructed. Individualized dose optimization techniques were used for this CT. COMPARISON: 09/07/2017. FINDINGS: Lung bases show scattered linear densities consistent with scarring and/or subsegmental atelectasis. Normal shape and size of the liver. Previous cholecystectomy. Prominent intra and extrahepatic bile duct distention, which was also present previously. Normal spleen. There is diffuse atrophy of the pancreas. Normal bilateral adrenal glands. Normal right kidney. Normal left kidney. Evaluation of the GI tract is limited by absence of oral contrast. Cannot exclude stomach wall thickening. No dilated loops of bowel or evidence for obstruction. Cannot exclude segmental thickening of the doshi of the small or large bowel. Cannot exclude enteritis or colitis. Moderate diffuse fecal retention. Sigmoid colon shows marked wall thickening, also present previously, and diverticulosis without definite diverticulitis. Appendix is not seen. There is diffuse atherosclerotic calcification of the abdominal aorta, with ectasia but without a demonstrated aneurysm. Normal inferior vena cava. Normal retroperitoneum. Normal urinary bladder. There is absence of the uterus consistent with a prior hysterectomy. Normal abdominal wall. There are diffuse degenerative changes of the visualized lumbar spine. CT/Abdomen/Pelvis W IV Cont ONLY IMPRESSION: There is no definite acute abnormality or definite change. Again seen is prominent intra and extrahepatic bile duct distention, also present previously. Evaluation of the GI tract is limited without oral contrast. Electronically Signed: Pipe Valverde MD at 19:24 EDT , Service support ,
--- NOTE | 2019-10-10 17:33 | ED.DCSUM_ITS ---
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 Negative for: Parasthesias, Weakness, Inability to ambulate, Loss of consciousness Narrative: Patient states that when she fell, she fell against a nearby TV stand, sustaining a minor scrape to her upper mid back, landed on the left outstretched hand, injuring her wrist which is the main injury and only injury today. Her back is not bothering her. She states she had a fall around 3 weeks ago, broke some ribs, still having soreness from that but the day after she was in the ER and diagnosed, she had about 1 or 2 days of hematochezia with clots. She was nauseated but did not vomit. That stopped, and now ever since she has been having some mucus in her bowel movements, and persistent right subcostal flank pain. She does not believe she reinjured that today. - Past Medical History (1) Acid reflux Status: Chronic (2) Anxiety Status: Chronic (3) Dementia Status: Chronic (4) Depression Status: Chronic (5) Thyroid disease Status: Chronic (6) Hypertension Status: Chronic Past Medical History - Allergies and Home Meds Allergies/Adverse Reactions: Allergies iodine Allergy (Verified 10/10/19 17:18) Other NSAIDS (Non-Steroidal Anti-Inflamma Allergy (Verified 10/10/19 17:18) Anaphylaxis Penicillins Allergy (Verified 10/10/19 17:18) Hives Sulfa (Sulfonamide Antibiotics) Allergy (Verified 10/10/19 17:18) Unknown Primary Care Physician: Kaela Crane MD [Primary Care Provider] - Surgical History: cholecystectomy Lives: Alone Smoking Status: Current every day smoker Review of Systems General: Denies: Chills, Fever, Sweats Eyes: Denies: Visual changes - bilaterally, Diplopia ENT: Denies: Rhinorrhea, Sore throat Cardiovascular: Reports: Chest pain - Right lower rib cage x3 weeks since fractures. Denies: Palpitations Respiratory: Denies: Dyspnea, Cough, Dyspnea on exertion Gastrointestinal: Reports: Abdominal pain, Nausea - Gone, Hematochezia - 2-3 weeks ago. See HPI.. Denies: Vomiting, Diarrhea, Melena Genitourinary: Denies: Dysuria, Hematuria, Frequency Musculoskeletal: Reports: Back pain, Extremity Pain. Denies: Neck pain Skin: Reports: Abrasions. Denies: Rash, Wounds Neurological: Denies: Headache, Weakness, Numbness Physical Exam Vital Signs/Narrative: Vital Signs Temp Pulse Resp BP Pulse Ox 10/10/19 17:16 98.0 F 80 18 187/113 H 94 Inital Vital Signs reviewed: Yes General: Well nourished, Well developed, - - nad. GCS 15 Head: Normocephalic, Atraumatic Eyes: Perrl, EOMI ENT: TM's clear, No hemotympanum or drainage, No trauma Neck: Nontender, Full ROM. Negative for: Spinal Tenderness Cardiovascular: Regular rate, Regular rhythm, No murmurs Respiratory: No distress, CTA bilaterally, Chest tenderness - Right lower rib cage anteriorly Abdomen: Soft, Nondistended, Normal bowel sounds, Tender - Right upper quadrant subcostal/flank tenderness. Negative for: Guarding, Rebound tenderness Back: Nontender, - - Minor abrasion upper back, minimally tender. Negative for: Spinal Tenderness Extremeties: Limited range of motion left wrist due to pain. Some localized swelling no obvious deformity. Tender throughout. No tenderness at the elbow or more proximally. Limited range of motion of fingers due to pain at the wrist, no finger tenderness. Otherwise extremities are atraumatic and nontender with good range of motion of all joints and no pain. Skin: Normal color, No rash Neurological: Alert, Oriented x3, Cranial nerves II-XII grossly intact, Normal Strength, Normal Sensation Psychological: Normal affect, Normal Mood Diagnostic/Tx/Re-eval Impressions Abdomen/Pelvis CT 10/10/19 17:29 IMPRESSION: There is no definite acute abnormality or definite change. Again seen is prominent intra and extrahepatic bile duct distention, also present previously. Evaluation of the GI tract is limited without oral contrast. Electronically Signed: Pipe Valverde MD at 19:24 EDT , Service support , Wrist X-Ray 10/10/19 18:18 IMPRESSION: No acute fracture or dislocation. Electronically Signed: Pipe Valverde MD at 19:00 EDT , Service support , 10/10/19 17:29 Abdomen/Pelvis W IV Cont ONLY [CT] Stat 10/10/19 18:18 Wrist min 3 Views [RAD] Stat Laboratory Results 10/10/19 10/10/19 17:48 17:48 WBC 15.2 H RBC 4.46 Hgb 13.3 Hct 40.8 MCV 91.5 MCH 29.8 MCHC 32.6 RDW Std Deviation 41.9 RDW Coeff of Heidi 12.8 Plt Count 281 MPV 9.7 Immature Gran % (Auto) 0.500 Neut % (Auto) 81.4 H Lymph % (Auto) 12.0 L [place] % (Auto) 5.1 Eos % (Auto) 0.6 Baso % (Auto) 0.4 Absolute Neuts (auto) 12.4 H Absolute Lymphs (auto) 1.83 Nucleated RBC % 0 Sodium 140 Potassium 4.0 Chloride 107 Carbon Dioxide 28.0 Anion Gap 5 BUN 9 Creatinine 0.64 Estim Creat Clear Calc 41.21 Est GFR (MDRD) Af Amer 116 Est GFR (MDRD) Non-Af 96 BUN/Creatinine Ratio 14.0 Glucose 131 H Calcium 8.3 L - Medical Decision Making CT shows no sign of obvious bowel injury. If her symptoms were related to her injury 3 or 4 weeks ago, it likely is something nonsurgical with a CT that shows no sign of rupture or ascites/intra-abdominal fluid. For that reason I think this was an adequate scan given the fact that she has had no bleeding for 3 or 4 weeks now. Her wrist x-ray returned unremarkable. I am at a high suspicion for the possibility of a nondisplaced fracture. For that reason I am putting her in a splint and having her followed up with by orthopedics. Worse case scenario they may place her in a cast. She feels she can go home. She was in a lot of pain even after morphine, with regards to her wrist only. She was given [place] and prescribed some, and she is comfortable going home and is ambulatory here. ED Disposition - Plan for ED Patient: Disposition: Home or Assisted Living Diagnosis: Right flank pain, Left wrist injury, Accidental fall Instructions: ED Sprain Wrist, ED Splint Care Velcro Prescriptions: Hydrocodone Bitart/Apap 5-325 [[place] 5MG-325MG] 1 tab PO Q6H PRN PRN 3 Days #10 tab PRN Reason: Pain Prescription Printed Referrals: Kaela Crane MD [Primary Care Provider] - Mark Brewster DO [STAFF PHYSICIAN] - 1 Week if not improving
[2019-10-10 17:54] LABS: Absolute Lymphocyte Count 1.83 X10^3/uL (0.83-4.51); Absolute Neutrophil Count 12.4 X10^3/uL (2.0-7.7); Basophil# 0.06 X10^3/uL; Basophil% 0.4 % (0-1); Eosinophil# 0.09 X10^3/uL; Eosinophils% 0.6 % (0-5); Hematocrit 40.8 % (37-47); Hemoglobin 13.3 g/dL (12.0-15.0); Lymphocyte # 1.83 X10^3/ul (4.0); Mean Corp Hgb Conc 32.6 g/dL (32-36); Mean Corpuscular Hgb 29.8 pg (27.0-32.0); Mean Corpuscular Volume 91.5 fL (81-99); Mean Platelet Vol. 9.7 fl (6.2-12.0); Monocyte# 0.77 X10^3/uL; Monocyte% 5.1 % (0-10); NRBC Flagged by Analyzer 0 % (0-5); Neutrophil # 12.39 X10^3/uL (2.7-7.7); Neutrophil % 81.4 % (47-70); Platelet Count 281 K/mm3 (150-450); RBC Distribution Width CV 12.8 % (11.6-14.6); RBC Distribution Width SD 41.9 fl (35.1-43.9); Red Blood Count 4.46 M/mm3 (4.2-5.4); White Blood Count 15.2 K/mm3 (4.4-11.0)
[2019-10-10] MEDS: DiphenhydrAMINE 50 MG/ML Syringe 25 MG IV (17:58)
[2019-10-10] MEDS: Morphine 2 MG/ML Syringe IV (17:58)
[2019-10-10 18:10] LABS: Anion Gap 5 (5-15); BUN 9 mg/dL (7-18); Calcium,Total 8.3 mg/dL (8.5-10.1); Chloride 107 mmol/L (98-107); Creatinine, Serum 0.64 mg/dL (0.55-1.02); EST Glomerular Filtration Rate 96 mL/min (>60); Est Glom Filt Rate - Afr Amer 116 mL/min (>60); Estimated Creatinine Clearance 41.21 ml/min; Glucose 131 mg/dL (74-106); Sodium Level 140 mmol/L (136-145)
--- NOTE | 2019-10-10 18:18 | RAD_ITS ---
STUDY: X-RAY - LEFT WRIST REASON FOR EXAM: Female, 74 years old. LEFT WRIST PAIN AFTER FALL TECHNIQUE: 3 view(s) of the wrist were obtained. COMPARISON: None. FINDINGS: No definite fracture or dislocation. Marked demineralization. Moderate degenerative changes. There is demineralization of the metacarpal bones. The soft tissue structures are unremarkable. RAD/Wrist min 3 Views IMPRESSION: No acute fracture or dislocation. Electronically Signed: Pipe Valverde MD at 19:00 EDT , Service support ,
[2019-10-10] MEDS: HYDROcodone Bitartrate/Apap 5/325 Tablet PO (20:44)
[2019-10-10 20:52] VITALS: BP 115/65; PULSE 65; RESP 17; O2SAT 97
== END 2019-10-10 20:55 | disposition home or self-care (01) ==
PROVIDERS: Emergency Provider Emergency Medicine; PCP Family Medicine
DX: S69.92XA Unspecified injury of left wrist, hand and finger(s), initial encounter (principal); W19.XXXA Unspecified fall, initial encounter; F03.90 Unspecified dementia, unspecified severity, without behavioral disturbance, psychotic disturbance, mood disturbance, and anxiety; F32.9 Major depressive disorder, single episode, unspecified; F41.9 Anxiety disorder, unspecified; E07.9 Disorder of thyroid, unspecified; I10 Essential (primary) hypertension; K21.9 Gastro-esophageal reflux disease without esophagitis; F17.200 Nicotine dependence, unspecified, uncomplicated; Z88.0 Allergy status to penicillin; Z88.2 Allergy status to sulfonamides; Z88.6 Allergy status to analgesic agent; Z90.49 Acquired absence of other specified parts of digestive tract
CPT/HCPCS: 73110; 74177; 80048; 85025; 96374; 96375; 99285; Q9967

== ENCOUNTER → 2020-01-08 15:09 | Outpatient (CLI) | payer MEDICARE, MEDICAID, SELFPAY ==
--- NOTE | 2020-01-08 15:11 | CT_ITS ---
STUDY: LOW DOSE CT LUNG CANCER SCREENING REASON FOR EXAM: Female, 74 years old. Long history of smoking. Screening for lung cancer. RADIATION DOSAGE (If Supplied By Facility): CTDIvol = ( 2.01 ) mGy, DLP = ( 65.95 ) mGycm TECHNIQUE: No contrast was administered. Low dose technique was utilized (average mAS-38 and kVp 120). 1.25 mm axial source images with a slice interval of 1.25-mm were reconstructed in lung windows. 2.5 mm axial source images with a slice interval of 2.5-mm were reconstructed in lung windows. 5.0 mm axial source images with a slice interval of 5.0-mm were reconstructed in soft tissue windows. Nodule measured using lung windows on PACS and/or independent workstation with automated measurement of minimum and maximum diameter. Nodule measurement reported as average diameter rounded to the nearest whole number. Growth is defined as an increase ins size of greater than 1.5 mm. COMPARISON: None. NODULES: There is hyperinflation of the lungs consistent with chronic obstructive lung disease (COPD). Subsegmental atelectases are noted in the lung bases more prominent on the right side. There is no demonstrated pleural abnormality. Normal heart and pericardium. Normal mediastinum. Normal hilar regions. Normal unenhanced pulmonary arteries. Normal aorta arch and descending thoracic aorta. There are multi-level degenerative changes of the thoracic spine.. Degenerative changes in the shoulders. Demineralization of the osseous structures consistent with osteoporosis. Multiple old healed right rib fractures are noted. There is no demonstrated abnormality of the visualized upper abdomen. CT/Low Dose CT Lung Screening IMPRESSION: Lung-RADS category 2. Benign findings. Recommendation: Routine screening CT scan in one year. IMPORTANT NOTES FOR USE: ACR Lung-RADS Version 1.0 Assessment Categories Release Date: August 14, 2013 Category: Coded 0-4 bases on nodule(s) with highest degree of suspicion. Negative screen is defined as categories 1 and 2; a positive screen is defined as categories 3 and 4. Category 3 and 4A nodules that are unchanged on interval CT should be coded as category 2, and individuals returned to screening in 12 months. Category 4X: Category 3 or 4 nodules with additional imaging findings that increase the suspicion of lung cancer, such as spiculation, GGN that doubles in size in 1 year, enlarged lymph notes, etc. Category Modifiers: S (significant finding unrelated to lung cancer) and C (prior history of treated lung cancer) may be added to the 0-4 Lung-RADS Electronically Signed: Joseph Escamilla, at 8:05 EDT Tel , Service support ,
== END ==
PROVIDERS: PCP Family Medicine; Referring Provider Family Medicine; Visit Provider Family Medicine
DX: Z12.2 Encounter for screening for malignant neoplasm of respiratory organs (principal); F17.210 Nicotine dependence, cigarettes, uncomplicated
CPT/HCPCS: G0297

== ENCOUNTER → 2020-11-07 09:56 | Outpatient (CLI) | payer MEDICARE, MEDICAID, SELFPAY ==
[2020-11-07 10:21] LABS: Absolute Lymphocyte Count 1.28 X10^3/uL (0.83-4.51); Absolute Neutrophil Count 9.9 X10^3/uL (2.0-7.7); Basophil# 0.06 X10^3/uL; Basophil% 0.5 % (0-1); Eosinophil# 0.07 X10^3/uL; Eosinophils% 0.6 % (0-5); Hematocrit 43.5 % (37-47); Hemoglobin 14.2 g/dL (12.0-15.0); Lymphocyte # 1.28 X10^3/ul (0.83-4.51); Lymphocyte % 10.7 % (19-41); Mean Corp Hgb Conc 32.6 g/dL (32-36); Mean Platelet Vol. 9.6 fl (6.2-12.0); Monocyte# 0.54 X10^3/uL; Monocyte% 4.5 % (0-10); NRBC Flagged by Analyzer 0 % (0-5); Neutrophil # 9.93 X10^3/uL (2.7-7.7); Neutrophil % 83.4 % (47-70); Platelet Count 264 K/mm3 (150-450); RBC Distribution Width CV 12.8 % (11.6-14.6); RBC Distribution Width SD 43.5 fl (35.1-43.9); Red Blood Count 4.73 M/mm3 (4.2-5.4); White Blood Count 11.9 K/mm3 (4.4-11.0)
[2020-11-07 11:12] LABS: AST(SGOT) 12 U/L (15-37); Alanine Aminotransfer ALT/SGPT 14 U/L (13-56); Albumin, Serum 3.6 g/dL (3.2-5.0); Alkaline Phosphatase 81 U/L (45-117); Anion Gap 6 (5-15); BUN 13 mg/dL (7-18); BUN/Creat Ratio 17.3 RATIO (10-20); Calcium,Total 8.9 mg/dL (8.5-10.1); Chloride 103 mmol/L (98-107); Cholesterol 122 mg/dL (200); Creatinine, Serum 0.75 mg/dL (0.55-1.02); EST Glomerular Filtration Rate 80 mL/min (>60); Est Glom Filt Rate - Afr Amer 97 mL/min (>60); Globulin 3.6 g/dL (2.2-4.2); Glucose 137 mg/dL (74-106); High Density Lipoprotein 54 mg/dL; Protein, Total 7.2 g/dL (6.4-8.2); Sodium Level 139 mmol/L (136-145); Thyroid Stim Hormone (TSH) 0.07 uIU/mL (0.358-3.74); Triglycerides 97 mg/dL; Very Low Density Lipoprotein 19 mg/dL (5-40)
== END ==
PROVIDERS: PCP Family Medicine; Visit Provider Family Medicine
DX: E78.5 Hyperlipidemia, unspecified (principal); I10 Essential (primary) hypertension; E03.9 Hypothyroidism, unspecified
CPT/HCPCS: 36415; 80053; 80061; 84443; 85025

== ENCOUNTER → 2020-12-17 06:39 | Outpatient (CLI) | payer MEDICARE, MEDICAID, SELFPAY ==
[2020-11-07 11:15] VITALS: BMI 21.9
--- NOTE | 2020-12-17 06:42 | ECHOD_ITS ---
Reason For Study: chest pain Procedure This was a 2D Doppler, Color Flow transthoracic echocardiogram. Exam performed in department. Left Ventricle Normal LV size. Apical false tendon noted. Left ventricular systolic function is normal. The estimated ejection fraction is 70 %. No regional wall motion abnormalities noted. Right Ventricle Normal RV size. Normal systolic function. Atria The left atrium is mildly enlarged. Normal right atrium. No doppler evidence for ASD. Mitral Valve There is no mitral annular calcification. Normal mitral valve. Mild (1+) mitral valve insufficiency. Tricuspid Valve Normal tricuspid valve. Mild tricuspid valve insufficiency. Right ventricular systolic pressure estimated to be 48 mmHg. Aortic Valve Trisinus/trileaflet aortic valve. Mild focal aortic valve calcification. Pulmonic Valve The pulmonic valve is not well visualized. Great Vessels Normal sized aortic root. Pericardium/Pleural No pericardial effusion. MMode/2D Measurements & Calculations LVIDd: 4.5 cm IVSd: 0.97 cm Ao root diam: 2.6 cm LVIDs: 3.0 cm LVPWd: 0.93 cm RVDd: 2.8 cm FS: 31.7 % LAV(MOD-bp): 45.9 ml LVAd ap4: 23.9 cm2 LVAd ap2: 20.7 cm2 LAV(MOD-bp) Indexed: 29.1 ml/m2 LVLd ap4: 7.1 cm LVLd ap2: 7.2 cm LAV(MOD-sp2): 46.1 ml EDV(MOD-sp4): 66.2 ml EDV(MOD-sp2): 51.9 ml LAV(MOD-sp4): 43.4 ml EDV(sp4-el): 68.0 ml EDV(sp2-el): 50.5 ml LVAs ap4: 11.3 cm2 LVAs ap2: 10.7 cm2 LVLs ap4: 5.7 cm LVLs ap2: 5.1 cm ESV(MOD-sp4): 20.0 ml ESV(MOD-sp2): 21.4 ml ESV(sp4-el): 19.0 ml ESV(sp2-el): 19.3 ml EF(MOD-sp4): 69.7 % EF(MOD-sp2): 58.7 % EF(sp4-el): 72.1 % SV(MOD-sp4): 46.1 ml SV(MOD-sp2): 30.5 ml SV(sp4-el): 49.0 ml LA dimension(2D): 4.0 cm LA A4 area: 16.5 cm2 RA A4 area: 9.4 cm2 Time Measurements MV dec time: 0.18 sec Doppler Measurements & Calculations MV E max sony: 135.4 cm/sec Lat Peak E' Sony: 6.8 cm/sec Med Peak E' Sony: 7.0 cm/sec MV A max sony: 115.0 cm/sec E/E' lat: 19.8 E/E' med: 19.4 MV E/A: 1.2 Ao V2 max: 145.1 cm/sec LV V1 max: 134.4 cm/sec TV V2 max: 74.3 cm/sec Ao max P.5 mmHg LV V1 max P.2 mmHg TV max P.2 mmHg Ao V2 mean: 95.6 cm/sec LV V1 mean P.2 mmHg TV V2 mean: 46.6 cm/sec Ao mean P.1 mmHg LV V1 mean: 83.6 cm/sec TV mean P.95 mmHg Ao V2 VTI: 32.1 cm LV V1 VTI: 29.2 cm PA V2 max: 104.2 cm/sec TR max sony: 335.1 cm/sec TR max P.9 mmHg ECHO/Echo Complete Interpretation Summary Left ventricular systolic function is normal. The estimated ejection fraction is 70 %. Apical false tendon noted. The left atrium is mildly enlarged. Mild (1+) mitral valve insufficiency. Mild tricuspid valve insufficiency. Mild focal aortic valve calcification. Right ventricular systolic pressure estimated to be 48 mmHg. Transmitral diastolic flow velocities suggest diastolic dysfunction (pseudonorm al pattern). Ordering Physician: Doug Washington Referring Physician: INGRID WALDROP Performed By: Nithya Hirsch, RDCS, RVT
--- NOTE | 2020-12-17 12:33 | STRESSREP ---
Stress Test Report Date: 12-17-2020 Procedure: Pharmacologic stress nuclear imaging study Indications: Chest pain Consent: Per the patient Procedure: The patient underwent pharmacologic (Regadenoson 0.4mg ) evaluation with a peak heart rate of 89 beats per minute (60%predicted maximal heart rate) and a peak blood pressure of 170/94 mmHg. The baseline ECG demonstrated sinus rhythm; septal DC of indeterminate age cannot be excluded. The peak pharmacologic ECG demonstrated no obvious ECG changes. There was an isolated PVC during recovery. There was no complaint of chest discomfort during pharmacologic infusion or recovery. The examination was discontinued secondary to completion of protocol. Impression: 1. Pharmacologic (Regadenoson) evaluation 2. Peak pharmacologic ECG with no obvious ECG changes. 3. There was an isolated PVC during recovery. 4. Nuclear images pending Myocardial perfusion imaging study: Technique: The patient was injected with 11.1 millicuries of technetium 99m Cardiolite and subsequently rest SPECT Cardiolite nuclear imaging was obtained in the horizontal long, vertical long, and short axis views. The patient underwent pharmacologic (Regadenoson) evaluation with a peak heart rate of 89 beats per minute (60% percent predicted maximal heart rate) and a peak blood pressure of 170/94 mmHg. The patient was injected with 32.2 millicuries of technetium 99m Cardiolite and subsequently stress SPECT Cardiolite nuclear imaging was obtained in the horizontal long, vertical long, and short axis views. A gated Cardiolite study at peak stress was obtained. Interpretation: Rest and stress SPECT Cardiolite nuclear imaging status post realignment, normalization, and attenuation correction demonstrate relative uniform tracer uptake and myocardial perfusion appearing within normal limits. There is end systolic thickening and brightening. The gated Cardiolite study demonstrates myocardial thickening and inward wall motion. The reported LVEF is 85%. Impression: 1. Rest and stress SPECT Cardiolite nuclear imaging demonstrate relative uniform tracer uptake and myocardial perfusion appearing within normal limits. 2. The gated Cardiolite study reports an LVEF of 85%. This note was generated with [employer] software. It may contain incorrect words, spelling, and punctuation that were not noted in checking the note before signing.
== END ==
PROVIDERS: PCP Family Medicine; Referring Provider Internal Medicine Cardiovascular Disease; Visit Provider Internal Medicine Cardiovascular Disease
DX: R94.31 Abnormal electrocardiogram [ECG] [EKG] (principal); E78.2 Mixed hyperlipidemia; I10 Essential (primary) hypertension; R07.9 Chest pain, unspecified; R55 Syncope and collapse
CPT/HCPCS: 78452; 93017; 93306; A9500; A4216; J2785

== ENCOUNTER → 2020-12-19 14:02 | Outpatient (CLI) | payer MEDICARE, MEDICAID, SELFPAY ==
--- NOTE | 2020-12-19 14:05 | CT_ITS ---
STUDY: LOW DOSE CT LUNG CANCER SCREENING REASON FOR EXAM: Female, 75 years old. 59 year history of smoking, 1 pack per day RADIATION DOSAGE (If Supplied By Facility): CTDIvol = ( 2.01 ) mGy, DLP = ( 68.46 ) mGycm TECHNIQUE: No contrast was administered. Low dose technique was utilized (average mAS-38 and kVp 120). 1.25 mm axial source images with a slice interval of 1.25-mm were reconstructed in lung windows. 2.5 mm axial source images with a slice interval of 2.5-mm were reconstructed in lung windows. 5.0 mm axial source images with a slice interval of 5.0-mm were reconstructed in soft tissue windows. Nodule measured using lung windows on PACS and/or independent workstation with automated measurement of minimum and maximum diameter. Nodule measurement reported as average diameter rounded to the nearest whole number. Growth is defined as an increase ins size of greater than 1.5 mm. COMPARISON: 01/08/2020 FINDINGS: Lung windows show underlying emphysema, there is a calcified granuloma in the left upper lobe on axial image 29. Chronic interstitial changes noted in both lung oreilly without organizing infiltrate or suspicious noncalcified mass or nodule. Soft tissue windows show normal-appearing thyroid gland. No suspicious adenopathy. There are calcified coronary vessels. Bony structures show degenerative change. Limited cuts through the upper abdomen do not show a suspicious abnormality. No significant interval change since the previous study CT/Low Dose CT Lung Screening IMPRESSION: Lung-RADS category 2 - Continue annual screening with LDCT in 12 months. IMPORTANT NOTES FOR USE: ACR Lung-RADS Version 1.1 Assessment Categories Release Date: 2018 Category: Coded 0-4 bases on nodule(s) with highest degree of suspicion. Negative screen is defined as categories 1 and 2; a positive screen is defined as categories 3 and 4. Category 3 and 4A nodules that are unchanged on interval CT should be coded as category 2, and individuals returned to screening in 12 months. Category 4X: Category 3 or 4 nodules with additional imaging findings that increase the suspicion of lung cancer, such as spiculation, GGN that doubles in size in 1 year, enlarged lymph notes, etc. Category Modifiers: S (significant finding unrelated to lung cancer) Electronically Signed: Kyaw Ferreira MD at 14:48 EDT , Service support ,
== END ==
PROVIDERS: PCP Family Medicine; Referring Provider Family Medicine; Visit Provider Family Medicine
DX: Z12.2 Encounter for screening for malignant neoplasm of respiratory organs (principal); F17.210 Nicotine dependence, cigarettes, uncomplicated
CPT/HCPCS: 71271

== ENCOUNTER 2020-12-29 13:39 | Inpatient (IN) | payer MEDICARE, MEDICAID, SELFPAY ==
[2020-12-29] VITALS (7 sets, daily range): BP systolic 149–191; BP diastolic 101–109; PULSE 107–122; RESP 17–18; TEMP 36.8–36.9; O2SAT 93–96; BMI 22.1; BMI 21.2
--- NOTE | 2020-12-29 14:29 | CT_ITS ---
STUDY: CT BRAIN WITHOUT CONTRAST REASON FOR EXAM: Female, 75 years old. head injury RADIATION DOSAGE (If Supplied By Facility): CTDIvol = ( 44.99 ) mGy, DLP = ( 779.24 ) mGycm TECHNIQUE: Transaxial CT imaging of the brain was performed without administration of intravenous contrast material. Individualized dose optimization techniques were used for this CT. COMPARISON: No relevant priors. FINDINGS: Normal soft tissue structures. Normal calvarium. There is mild cerebral atrophy with widening of the extra-axial spaces and ventricular dilatation. There are areas of decreased attenuation within the white matter tracts of the supratentorial brain, consistent with microvascular disease changes. Normal basal ganglia and thalami. Normal brainstem. Normal cerebellum. There is no intracranial hemorrhage. There are no findings of an acute ischemic infarction. Normal visualized paranasal sinuses. CT/Brain/Head without Contrast IMPRESSION: Chronic involutional changes of the brain. Electronically Signed: Regan Yan MD at 16:06 EDT Tel , Service support ,
--- NOTE | 2020-12-29 14:29 | CT_ITS ---
STUDY: CT CERVICAL SPINE WITHOUT CONTRAST REASON FOR EXAM: Female, 75 years old. fall RADIATION DOSAGE (If Supplied By Facility): CTDIvol = ( 17.95 ) mGy, DLP = ( 361.88 ) mGycm TECHNIQUE: High resolution transaxial imaging was performed without contrast material. Sagittal and coronal images were reconstructed. Individualized dose optimization techniques were used for this CT. COMPARISON: None FINDINGS: Normal craniovertebral junction. There is hypertrophy of the transverse ligament of the atlas with mild posterior displacement of the superior and inferior longitudinal fibers of the cruciform ligament, producing minimal ventral thecal sac flattening, but without cervical cord impingement. There are mild degenerative changes in the anterior atlantoaxial articulation. Normal odontoid process. Normal cervical lordosis. Normal vertebral bodies and posterior osseous elements. Bilateral cervical ribs. C2-3: Moderate left facet hypertrophy produces mild left neural foraminal stenosis. No central spinal stenosis. C3-4: Moderate left facet hypertrophy produces mild left neural foraminal stenosis. Mild broad disc osteophyte complex and bilateral vertebral hypertrophy produces mild spinal stenosis and mild bilateral neural foraminal stenosis. C4-5: Moderate left facet hypertrophy produces mild left neural foraminal stenosis. 2 mm of anterolisthesis of C4 on C5 with a mild broad disc osteophyte complex and bilateral due to hypertrophy produces mild spinal stenosis and moderate bilateral neural foraminal stenosis. C5-6: Mild broad disc osteophyte complex and bilateral vertebral hypertrophy produces mild spinal stenosis and mild bilateral neural foraminal stenosis. C6-7: Normal endplates. Normal disc height and morphology. Normal central canal and intervertebral neuroforamina. C7-T1: Normal endplates. Normal disc height and morphology. Normal central canal and intervertebral neuroforamina. Normal visualized soft tissue structures. CT/Spine Cervical without Contras IMPRESSION: No acute fracture or subluxation. Electronically Signed: Regan Yan MD at 16:17 EDT Tel , Service support ,
--- NOTE | 2020-12-29 14:30 | EKG12_ITS ---
Test Reason : Blood Pressure : / mmHG Vent. Rate : 119 BPM Atrial Rate : 119 BPM P-R Int : 128 ms QRS Dur : 078 ms QT Int : 334 ms P-R-T Axes : 085 -76 -41 degrees QTc Int : 469 ms Sinus tachycardia with Premature atrial complexes Left axis deviation Nonspecific ST and T wave abnormality Abnormal ECG Confirmed by NORMA LANE, WILLY ([id number]), assistant production editor MOE HASSAN ([id number]) on 12/30/2020 1:40:51 PM Referred By: FELIX Confirmed By:WILLY GREEN MD
--- NOTE | 2020-12-29 14:31 | EDS_ITS ---
HPI History of Present Illness Chief Complaint: Fall Detail of Chief Complaint: Fall that occurred last evening Informant: patient Narrative Narrative: Patient presents to the emergency department with a fall that occurred last evening. Patient apparently is coming from home. It is unclear who called EMS but is believed family found patient on the floor. Patient also had blood throughout the house and in the toilet and apparently at told EMS that she been having blood from her stool for the last 5 days. Patient does not remember falling. She is a very poor historian. Currently she denies pain anywhere. She is not on blood thinners. [facility] Medical History (Updated 12/29/20 @ 17:[address] Pradip Merino, DO) Abnormal EKG Anxiety Arthritis Dementia Depression Difficulty swallowing Essential hypertension GERD (gastroesophageal reflux disease) Graves disease Hemorrhoid Hx TIA/stroke w/o resid Hypothyroidism Mixed hyperlipidemia Syncope Home Medications gabapentin 300 mg PO BIDCM 03/16/17 [History Last Taken Unknown] levothyroxine 112 mcg PO DAILY 03/16/17 [History Last Taken 06/24/17 08:00 112 MCG] metoprolol tartrate 25 mg PO BID 03/16/17 [History Last Taken 06/24/17 08:00 25 MG] omeprazole 40 mg PO DAILY 03/16/17 [History Last Taken 06/24/17 08:00 20 MG] paroxetine HCl 40 mg PO DAILY 03/16/17 [History Last Taken Unknown] rosuvastatin 10 mg PO QHS 03/16/17 [History Last Taken Unknown] tizanidine 1 - 2 tab PO Q8H PRN 03/16/17 [History Last Taken Unknown] trazodone 100 mg PO QHS 03/16/17 [History Last Taken Unknown] aspirin 81 mg PO QHS 06/21/17 [History Last Taken Unknown] cholecalciferol (vitamin D3) 125 mcg (5,000 unit) capsule 125 mcg PO DAILY 10/29/20 [History Last Taken Unknown] lisinopril 5 mg tablet 5 mg PO DAILY 10/29/20 [History Last Taken Unknown] oxycodone-acetaminophen 5 mg-325 mg tablet 1 tab PO Q6H PRN 10/29/20 [History Last Taken Unknown] Allergy/AdvReac Type Severity Reaction Status Date / Time iodine Allergy Severe Other Verified 12/29/20 13:46 NSAIDS (Non-Steroidal Allergy Anaphylaxis Verified 12/29/20 13:46 Anti-Inflamma Penicillins Allergy Hives Verified 12/29/20 13:46 Sulfa (Sulfonamide Allergy Unknown Verified 12/29/20 13:46 Antibiotics) Family History (Updated 10/29/20 @ 11:08 by Jil Fernandez) Mother Esophageal cancer Hypertension CVA (cerebral vascular accident) Cardiac arrhythmia Surgical History History of appendectomy History of bilateral cataract extraction History of bunionectomy of both great toes Hx of cholecystectomy Hx of eye surgery S/P carpal tunnel release S/P total abdominal hysterectomy and bilateral salpingo-oophorectomy Social History (Updated 11/07/20 @ 11:28 by Debby Montemayor) Smoking Status: Current every day smoker tobacco type: cigarettes second hand exposure: Yes alcohol intake: never substance use type: does not use caffeine: Yes Type: coffee Number of servings: 1 what type of physical activity do you participate in: none frequency: does not exercise seatbelt use: always ROS ROS ED Constitutional Constitutional ED: Reports systems reviewed and no addt'l complaints, except as documented; Denies body ache(s), change in weight or chills Eyes Eyes: Denies acute decrease in peripheral vision, change in vision, double vision or loss of vision ENT ENT ED: Reports none; Denies ear pain, lip swelling, loss taste/smell, neck pain, otalgia or sore throat Cardiovascular Cardiovascular: Reports none; Denies abdominal pain, chest pain with activity, leg edema, lightheadedness, palpitations, rapid heart rate or syncope Respiratory/Chest Respiratory/Chest: Reports none; Denies change in mental status, dry cough, dyspnea, hemoptysis, shortness of breath at rest or shortness of breath with exertion Gastrointestinal Gastrointestinal: Reports none and other Details: Bright red blood in stool ; Denies abdominal pain, change in stool character, diarrhea, hematemesis, hemat ochezia, melena, rectal bleeding or vomiting Genitourinary Genitourinary ED: Reports none; Denies abdominal discomfort, anuria, dysuria, genital pain or polyuria Musculoskeletal Musculoskeletal: Reports none; Denies arthralgias, back pain, difficulty walking, extremity pain, muscle weakness or myalgias Integumentary Reports none; Denies abscess or rash Neurologic Neurologic: Reports none; Denies abnormal gait, confusion, focal weakness, frequent falls, headache(s), loss of vision, numbness, paresthesias, radicular pain, vertigo or weakness Psychiatric Psychiatric: Reports systems reviewed and no addt'l complaints, except as documented and none; Denies behavioral changes, confusion, difficulty concentrating, hallucinations, suicidal ideation, tactile hallucinations or visual hallucinations Endocrine Endocrinology: Denies none, cold intolerance, excessive sweating, fatigue or heat intolerance Hematologic/Lymphatic Hematologic/Lymphatic: Reports none; Denies anemia, easy bleeding or easy bruising Allergic/Immunologic Allergic/Immunologic ED: Denies as per HPI, none, lip swelling, mouth swelling, throat swelling, tongue swelling or hives EXAM Physical Exam Const Vital Signs: 12/29/20 13:43 12/29/20 13:47 Temperature 98.2 F Temperature Source Oral Pulse Rate 122 H Respiratory Rate 17 Respiratory Effort Normal Non-Labored Respiratory Depth Normal Respiratory Pattern Normal Blood Pressure 149/109 H Blood Pressure Mean 122 Pulse Ox 93 95 Oxygen Delivery Method Room Air Room Air Positive well nourished and well developed General Appearance ED: well developed and NAD HEENT Reports TM's clear and moist mucous membranes normocephalic and atraumatic; Negative for trauma or tenderness Tympanic Membrane ED: Yes TM's clear Eyes PERRL and EOMs intact bilaterally General Eye ED: Negative for pale conjunctiva or scleral icterus Neck no lymphadenopathy, supple and no JVD General: Negative for tenderness Chest Wall inspection of chest normal and palpation of chest normal Chest: Negative for tenderness Resp normal respiratory effort and clear to auscultation bilaterally Effort and Inspection: Negative for respiratory distress or pain with movement Auscultation: Negative for rhonchi, wheezes or diminished lung sounds Cardio regular rate, regular rhythm, S1 normal heart sound, S2 normal heart sound and no murmurs Peripheral Pulses: pulses 2+ throughout GI soft to palpation, non-distended and no masses GI Narrative: Patient has diffuse tenderness with guarding. There is no reboun d, rigidity, or peritoneal signs. Back/Spine no CVA tenderness and no thoracic nor lumbar tenderness Extremity normal to inspection General Extremety ED: Negative for edema General Extremity: Negative for edema Neuro oriented x3, CN's II-XII intact bilaterally, no sensory deficits noted and gait normal Sensorium / Orientation: awake, alert, oriented to person, oriented to place and oriented to time Motor Exam: strength 5/5 throughout and strength abnormal Psych mental status grossly normal Skin no rashes or lesions noted and no wounds MDM MDM MDM Narrative Medical decision making narrative: Results discussed with patient as well as her son. Case will be discussed with hospitalist evaluate patient for admission. I suspect patient has an infectious colitis. She was started on Flagyl as well as Cipro. Lactate is currently pending. Lab Data Labs: Laboratory Results - last 24 hr 12/29/20 12/29/20 12/29/20 13:20 13:20 13:20 WBC 17.0 H RBC 4.74 Hgb 14.1 Hct 42.9 MCV 90.5 MCH 29.7 MCHC 32.9 RDW Std Deviation 41.9 RDW Coeff of Heidi 12.7 Plt Count 250 MPV 10.9 Immature Gran % (Auto) 0.600 Neut % (Auto) 79.0 H Lymph % (Auto) 5.9 L [place] % (Auto) 7.4 Eos % (Auto) 6.8 H Baso % (Auto) 0.3 Absolute Neuts (auto) 13.4 H Absolute Lymphs (auto) 1.01 Nucleated RBC % 0 Differential Comment SCANNED Sodium 141 Potassium 3.4 L Chloride 104 Carbon Dioxide 27.0 Anion Gap 10 BUN 39 H Creatinine 1.12 H Estim Creat Clear Calc 36.45 Est GFR (MDRD) Af Amer 61 Est GFR (MDRD) Non-Af 51 L BUN/Creatinine Ratio 34.8 H Glucose 149 H Lactic Acid Calcium 9.6 Total Bilirubin 0.60 AST 51 H ALT 20 Alkaline Phosphatase 107 Total Creatine Kinase 752 H Troponin I High Sens 128 H* Total Protein 7.2 Albumin 3.2 Globulin 4.0 Albumin/Globulin Ratio 0.8 L Urine Color Urine Clarity Urine pH Ur Specific [place] Urine Protein Urine Glucose (UA) Urine Ketones Urine Occult Blood Urine Nitrite Urine Bilirubin Urine Urobilinogen Ur Leukocyte Esterase Urine RBC Urine WBC Ur Squamous Epith Cells Urine Bacteria Fine Granular Casts Urine Mucus 12/29/20 12/29/20 16:05 16:24 WBC RBC Hgb Hct MCV MCH MCHC RDW Std Deviation RDW Coeff of Heidi Plt Count MPV Immature Gran % (Auto) Neut % (Auto) Lymph % (Auto) [place] % (Auto) Eos % (Auto) Baso % (Auto) Absolute Neuts (auto) Absolute Lymphs (auto) Nucleated RBC % Differential Comment Sodium Potassium Chloride Carbon Dioxide Anion Gap BUN Creatinine Estim Creat Clear Calc Est GFR (MDRD) Af Amer Est GFR (MDRD) Non-Af BUN/Creatinine Ratio Glucose Lactic Acid Cancelled Calcium Total Bilirubin AST ALT Alkaline Phosphatase Total Creatine Kinase Troponin I High Sens Total Protein Albumin Globulin Albumin/Globulin Ratio Urine Color Yellow Urine Clarity Sl. Cloudy Urine pH 5.0 Ur Specific [place] 1.025 Urine Protein 30 H Urine Glucose (UA) Normal Urine Ketones Negative Urine Occult Blood 150 H Urine Nitrite Positive H Urine Bilirubin Negative Urine Urobilinogen Normal Ur Leukocyte Esterase Negative Urine RBC 0 SEEN Urine WBC 0-5 SEEN Ur Squamous Epith Cells 0 SEEN Urine Bacteria 2+ Fine Granular Casts 0-5 SEEN Urine Mucus 0 SEEN Radiography Diagnostic Testing: Radiology Impression Brain CT 12/29/20 14:29 IMPRESSION: Chronic involutional changes of the brain. Electronically Signed: Regan Yan MD at 16:06 EDT Tel , Service support , Cervical Spine CT 12/29/20 14:29 IMPRESSION: No acute fracture or subluxation. Electronically Signed: Regan Yan MD at 16:17 EDT Tel , Service support , Abdomen/Pelvis CT 12/29/20 16:14 IMPRESSION: 1. Suspect colitis of the distal transverse colon, descending colon, and proximal sigmoid colon may be secondary to diverticulitis or other infectious colitis including pseudomembranous colitis. No abscess or perforation. 2. Possible gastritis and correlation with endoscopy would be useful. 3. Dilatation of the infrarenal abdominal aorta with a maximal diameter of 2.5 cm. Electronically Signed: Regan Yan MD at 17:19 EDT Tel , Service support , EKG Initial EKG: Attestation: I personally reviewed and interpreted this EKG as follows: Comments: Sinus rhythm with a ventricular rate of [address] changes. Prior EKG tracings: available for review Prior: Unchanged Discharge Plan Triage Chief Complaint: Fall ED Provider: Pradip Merino Dx/Rx/DC Orders Clinical Impression: Colitis, Fall, Rhabdomyolysis, Elevated troponin Prescriptions: No Action oxycodone-acetaminophen 5-325 mg tablet 1 tab PO Q6H PRNRF: 0 lisinopril 5 mg tablet 5 mg PO DAILY RF: 0 cholecalciferol (vitamin D3) 125 mcg (5,000 unit) capsule 125 mcg PO DAILY RF: 0 tizanidine 2 MG tablet 1 - 2 tab PO Q8H PRN (Reason: Muscle Spasm) RF: 0 trazodone 100 MG tablet 100 mg PO QHS RF: 0 gabapentin 300 MG capsule 300 mg PO BIDCM RF: 0 omeprazole 20 MG capsule 40 mg PO DAILY RF: 0 paroxetine HCl 40 MG tablet 40 mg PO DAILY RF: 0 levothyroxine 112 MCG tablet 112 mcg PO DAILY RF: 0 rosuvastatin 10 MG tablet 10 mg PO QHS RF: 0 metoprolol tartrate 25 MG tablet 25 mg PO BID RF: 0 aspirin 81 MG tablet 81 mg PO QHS RF: 0 Primary Care Provider: Kaela Crane Referrals: Kaela Crane MD [Primary Care Provider] - Disposition Disposition: Acute Care Hospital [facility] [place] [facility]
[2020-12-29 14:51] LABS: Absolute Lymphocyte Count 1.01 X10^3/uL (0.83-4.51); Absolute Neutrophil Count 13.4 X10^3/uL (2.0-7.7); Basophil# 0.05 X10^3/uL; Basophil% 0.3 % (0-1); Eosinophil# 1.16 X10^3/uL; Eosinophils% 6.8 % (0-5); Hematocrit 42.9 % (37-47); Hemoglobin 14.1 g/dL (12.0-15.0); Lymphocyte # 1.01 X10^3/ul (0.83-4.51); Lymphocyte % 5.9 % (19-41); Mean Corp Hgb Conc 32.9 g/dL (32-36); Mean Corpuscular Hgb 29.7 pg (27.0-32.0); Mean Corpuscular Volume 90.5 fL (81-99); Mean Platelet Vol. 10.9 fl (6.2-12.0); Monocyte# 1.25 X10^3/uL; Monocyte% 7.4 % (0-10); NRBC Flagged by Analyzer 0 % (0-5); Neutrophil # 13.43 X10^3/uL (2.7-7.7); POSITIVE MORPHOLOGY YES; Platelet Count 250 K/mm3 (150-450); RBC Distribution Width CV 12.7 % (11.6-14.6); RBC Distribution Width SD 41.9 fl (35.1-43.9); Red Blood Count 4.74 M/mm3 (4.2-5.4)
[2020-12-29 14:52] LABS: Differential Indicated SCAN CRITERIA MET
[2020-12-29 15:02] LABS: CPK Total, Creatine Kinase 752 U/L (26-192)
[2020-12-29 15:03] LABS: Differential Comment SCANNED
[2020-12-29] MEDS: 0.9% Normal Saline 1,000 ML 150 ML IV (15:03)
[2020-12-29 15:07] LABS: ALB/GLOB Ratio 0.8 RATIO (0.9-2.4); AST(SGOT) 51 U/L (15-37); Alanine Aminotransfer ALT/SGPT 20 U/L (13-56); Albumin, Serum 3.2 g/dL (3.2-5.0); Alkaline Phosphatase 107 U/L (45-117); Anion Gap 10 (5-15); BUN 39 mg/dL (7-18); BUN/Creat Ratio 34.8 RATIO (10-20); Calcium,Total 9.6 mg/dL (8.5-10.1); Chloride 104 mmol/L (98-107); Creatinine, Serum 1.12 mg/dL (0.55-1.02); EST Glomerular Filtration Rate 51 mL/min (>60); Est Glom Filt Rate - Afr Amer 61 mL/min (>60); Estimated Creatinine Clearance 36.45 ml/min; Glucose 149 mg/dL (74-106); Potassium 3.4 mmol/L (3.5-5.1); Protein, Total 7.2 g/dL (6.4-8.2); Sodium Level 141 mmol/L (136-145); Troponin-I HS 128 pg/mL (3.0-54.0)
[2020-12-29 16:13] LABS: Mucous, Urine 0 SEEN /hpf (<or=2+); Red Blood Cells-Urine 0 SEEN /hpf (0-5); Squamous Epithelial Cells - UA 0 SEEN /hpf (5-10)
--- NOTE | 2020-12-29 16:14 | CT_ITS ---
STUDY: CT ABDOMEN AND PELVIS WITHOUT CONTRAST REASON FOR EXAM: Female, 75 years old. abdominal pain after fall RADIATION DOSAGE (If Supplied By Facility): CTDIvol = ( 6.32 ) mGy, DLP = ( 309.39 ) mGycm TECHNIQUE: Transaxial images were obtained from the dome of the diaphragm to the symphysis pubis without oral contrast, and without intravenous contrast. Sagittal and coronal images were reconstructed. Individualized dose optimization techniques were used for this CT. COMPARISON: 10/10/2019 FINDINGS: The visualized lung bases are unremarkable. The visualized portions of the heart are within normal limits. Normal liver. There are surgical clips in the gallbladder fossa consistent with a prior cholecystectomy. Normal spleen. Normal pancreas. Normal bilateral adrenal glands. Normal right kidney. Normal left kidney. Marked wall thickening. The stomach is collapsed and this may be secondary to lack of distention or gastritis. Correlation with endoscopy may be useful. Normal small intestine. There are multiple colonic diverticula consistent with diverticulosis. Wall thickening of the distal transverse colon, splenic flexure, descending colon, and proximal sigmoid colon may be secondary to diverticulitis or infectious colitis including pseudomembranous colitis. No loculated fluid collection to suggest abscess. No pneumoperitoneum to cysts perforation. There is non-visualization of the appendix. Dilatation infrarenal bone aorta with a maximal diameter of 2.5 cm. Normal inferior vena cava. Normal retroperitoneum. Normal urinary bladder. Normal abdominal wall. Normal osseous structures. CT/Abdomen/Pelvis without Cont IMPRESSION: 1. Suspect colitis of the distal transverse colon, descending colon, and proximal sigmoid colon may be secondary to diverticulitis or other infectious colitis including pseudomembranous colitis. No abscess or perforation. 2. Possible gastritis and correlation with endoscopy would be useful. 3. Dilatation of the infrarenal abdominal aorta with a maximal diameter of 2.5 cm. Electronically Signed: Regan Yan MD at 17:19 EDT Tel , Service support ,
[2020-12-29 16:17] LABS: Color, Urine Yellow (Yellow); Glucose, Dipstick Normal (Normal); Ketone-Dipstick Negative (Negative); Leukocyte Esterase-Dipstick Negative /ul (Negative); Nitrite-Dipstick Positive (Negative); Occult Blood-Urine 150 /ul (Negative); Protein-Dipstick 30 mg/dl (Negative); Specific Gravity, Urine 1.025 (1.002-1.030); Urine Bilirubin Dipstick Negative (Negative); Urine Clarity Sl. Cloudy (Clear); Urine Urobilinogen Normal (Normal)
[2020-12-29 16:27] LABS: Bacteria 2+ /hpf (None Seen); White Blood Cells 0-5 SEEN /hpf (0-5)
[2020-12-29 16:28] LABS: Fine Granular Cast- Urine 0-5 SEEN /lpf (0-5)
[2020-12-29 18:06] LABS: Lactic Acid 1.4 mmol/L (0.4-1.9)
--- NOTE | 2020-12-29 18:12 | PCM.HP.STD ---
HPI - General General Date of Admission: 12/29/20 HPI Narrative GARY MORRIS, is a 75 F with multiple comorbidities came to ER for abdominal pain, fall and found on the floor. She does not remember how she came to the floor but EMS brought her and found blood in the toilet. She states he has bloody bowel movement, large volume about 10 times for 5 days but her history is not reliable as she is in distress, confused and disoriented. Complain of severe abdominal pain that started more than 3 weeks ago and is diffuse. She cannot tell which quadrant it started first. She denies nausea or vomiting. She has history of syncope and chest pain for which she was evaluated in October [address] Washington in the office. At that time, Lexiscan nuclear stress was done which was negative for ischemia. 2D echo on 12/17/2020 showed EF 70% with mildly enlarged LA. Mild MR, mild TR, RVSP 48 mmHg with mild diastolic dysfunction. [facility] Medical History (Updated 12/29/20 @ 18:[address] Bradley Sr MD) Abnormal EKG Anxiety Arthritis Dementia Depression Difficulty swallowing Essential hypertension GERD (gastroesophageal reflux disease) Graves disease Hemorrhoid Hx TIA/stroke w/o resid Hypothyroidism Mixed hyperlipidemia Syncope Home Medications gabapentin 300 mg PO BIDCM 03/16/17 [History Last Taken Unknown] levothyroxine 112 mcg PO DAILY 03/16/17 [History Last Taken 06/24/17 08:00 112 MCG] metoprolol tartrate 25 mg PO BID 03/16/17 [History Last Taken 06/24/17 08:00 25 MG] omeprazole 40 mg PO DAILY 03/16/17 [History Last Taken 06/24/17 08:00 20 MG] paroxetine HCl 40 mg PO DAILY 03/16/17 [History Last Taken Unknown] rosuvastatin 10 mg PO QHS 03/16/17 [History Last Taken Unknown] tizanidine 1 - 2 tab PO Q8H PRN 03/16/17 [History Last Taken Unknown] trazodone 100 mg PO QHS 03/16/17 [History Last Taken Unknown] aspirin 81 mg PO QHS 06/21/17 [History Last Taken Unknown] cholecalciferol (vitamin D3) 125 mcg (5,000 unit) capsule 125 mcg PO DAILY 10/29/20 [History Last Taken Unknown] lisinopril 5 mg tablet 5 mg PO DAILY 10/29/20 [History Last Taken Unknown] oxycodone-acetaminophen 5 mg-325 mg tablet 1 tab PO Q6H PRN 10/29/20 [History Last Taken Unknown] Allergy/AdvReac Type Severity Reaction Status Date / Time iodine Allergy Severe Other Verified 12/29/20 13:46 NSAIDS (Non-Steroidal Allergy Anaphylaxis Verified 12/29/20 13:46 Anti-Inflamma Penicillins Allergy Hives Verified 12/29/20 13:46 Sulfa (Sulfonamide Allergy Unknown Verified 12/29/20 13:46 Antibiotics) Family History (Updated 10/29/20 @ 11:08 by Jil Fernandez) Mother Esophageal cancer Hypertension CVA (cerebral vascular accident) Cardiac arrhythmia Surgical History History of appendectomy History of bilateral cataract extraction History of bunionectomy of both great toes Hx of cholecystectomy Hx of eye surgery S/P carpal tunnel release S/P total abdominal hysterectomy and bilateral salpingo-oophorectomy Social History (Updated 11/07/20 @ 11:28 by Debby Montemayor) Smoking Status: Current every day smoker tobacco type: cigarettes second hand exposure: Yes alcohol intake: never substance use type: does not use caffeine: Yes Type: coffee Number of servings: 1 what type of physical activity do you participate in: none frequency: does not exercise seatbelt use: always ROS ROS Narrative Complete ROS unobtainable as patient does not remember well, confused and disoriented. Rest as described in HPI Review of Systems ROS Unobtainable: due to encephalopathy and due to mental condition Vital Signs Vital Signs Vital Signs: 12/29/20 13:43 12/29/20 13:47 Temperature 98.2 F Temperature Source Oral Pulse Rate 122 H Respiratory Rate 17 Respiratory Effort Normal Non-Labored Respiratory Depth Normal Respiratory Pattern Normal Blood Pressure 149/109 H Blood Pressure Mean 122 Pulse Ox 93 95 Oxygen Delivery Method Room Air Room Air Weight Weight: 125 lb Body Mass Index (BMI) 22.1 Physical Exam Narrative Physical exam General: Drowsy, lethargic, disoriented to time and place HEENT: Atraumatic, PERRLA, EOMI, Normocephalic Oral: Dry oral mucosa. No Gingival or Mucosal Lesions/ Ulcerations Neck: Supple, No JVD, Negative Carotid Bruits Lungs: Air entry diminished in bilateral lung bases. No crepitation/rhonchi Cardiovascular: Regular rate, Regular Rhythm, Normal S1, Normal S2, No murmurs Abdomen: Very tender abdomen diffuse predominantly left lower quadrant. Nondistended. Bowel sounds present. No rigidity but involuntary guarding : No renal angle tenderness. No suprapubic tenderness. Extremities: No edema, Capillary Refill Less than 3 Seconds Skin: No rashes, No breakdown Musculoskeletal: No Tenderness to Palpation of Joints or Extremities Neurological: Cranial nerves II-XII grossly intact, DTR 2+/4 and Symmetrical, Neuro grossly intact Psych/Mental Status: Normal Affect, Appropriate. Results Lab / Micro Data Result Diagrams: 12/29/20 13:20 12/29/20 13:20 Labs: Laboratory Results - last 24 hr 12/29/20 13:20: WBC 17.0 H, RBC 4.74, Hgb 14.1, Hct 42.9, MCV 90.5, MCH 29.7, MCHC 32.9, RDW Std Deviation 41.9, RDW Coeff of Heidi 12.7, Plt Count 250, MPV 10.9, Immature Gran % (Auto) 0.600, Neut % (Auto) 79.0 H, Lymph % (Auto) 5.9 L, [place] % (Auto) 7.4, Eos % (Auto) 6.8 H, Baso % (Auto) 0.3, Absolute Neuts (auto) 13.4 H, Absolute Lymphs (auto) 1.01, Nucleated RBC % 0, Differential Comment SCANNED 12/29/20 13:20: Sodium 141, Potassium 3.4 L, Chloride 104, Carbon Dioxide 27.0, Anion Gap 10, BUN 39 H, Creatinine 1.12 H, Estim Creat Clear Calc 36.45, Est GFR (MDRD) Af Amer 61, Est GFR (MDRD) Non-Af 51 L, BUN/Creatinine Ratio 34.8 H, Glucose 149 H, Calcium 9.6, Total Bilirubin 0.60, AST 51 H, ALT 20, Alkaline Phosphatase 107, Troponin I High Sens 128 H*, Total Protein 7.2, Albumin 3.2, Globulin 4.0, Albumin/Globulin Ratio 0.8 L 12/29/20 13:20: Total Creatine Kinase 752 H 12/29/20 16:05: Urine Color Yellow, Urine Clarity Sl. Cloudy, Urine pH 5.0, Ur Specific [place] 1.025, Urine Protein 30 H, Urine Glucose (UA) Normal, Urine Ketones Negative, Urine Occult Blood 150 H, Urine Nitrite Positive H, Urine Bilirubin Negative, Urine Urobilinogen Normal, Ur Leukocyte Esterase Negative, Urine RBC 0 SEEN, Urine WBC 0-5 SEEN, Ur Squamous Epith Cells 0 SEEN, Urine Bacteria 2+, Fine Granular Casts 0-5 SEEN, Urine Mucus 0 SEEN 12/29/20 16:24: Lactic Acid Cancelled 12/29/20 17:22: Lactic Acid 1.4 Micro: Microbiology 12/29/20 14:55 Nasal Secretion SARS-CoV-2 Antigen (Rapid) - Final 12/29/20 14:40 Mucosa - Nasopharyngeal Rapid RSV (DFA) - Final Radiology Impression Brain CT 12/29/20 14:29 IMPRESSION: Chronic involutional changes of the brain. Electronically Signed: Regan Yan MD at 16:06 EDT Tel , Service support , Cervical Spine CT 12/29/20 14:29 IMPRESSION: No acute fracture or subluxation. Electronically Signed: Regan Yan MD at 16:17 EDT Tel , Service support , Abdomen/Pelvis CT 12/29/20 16:14 IMPRESSION: 1. Suspect colitis of the distal transverse colon, descending colon, and proximal sigmoid colon may be secondary to diverticulitis or other infectious colitis including pseudomembranous colitis. No abscess or perforation. 2. Possible gastritis and correlation with endoscopy would be useful. 3. Dilatation of the infrarenal abdominal aorta with a maximal diameter of 2.5 cm. Electronically Signed: Regan Yan MD at 17:19 EDT Tel , Service support , Assessment & Plan Assessment/Plan (1) Colitis: (2) Fall: QUALIFIERS: Encounter type: initial encounter Qualified Code(s): W19.XXXA - Unspecified fall, initial encounter PLAN: This 75-year-old female admitted with fall, severe subacute abdominal pain with lower GI bleed and CT abdomen suggestive of left-sided colitis. 1. Severe abdominal pain with lower GI bleed probably due to left-sided colitis: Patient is being admitted on [facility] with telemetry as there is no PCU beds available and it seems her main respirating factor is abdominal pain/colitis. Started on normal saline 150 mill per hour. On broad-spectrum IV antibiotic Cipro and Flagyl. Discussed with surgeon Dr. Dey and she agrees with the plan. She not had recent antibiotic exposure in last 6-month. Stool test including C. difficile, occult blood test, lactoferrin and enteric bacteriology panel ordered. 2. Elevated troponin and elevated CPK probably type II demand ischemia from severe abdominal pain: As mentioned in HPI, patient recently had cardiology evaluation with a stress and echo test. EKG shows sinus tachycardia at 120 bpm with LAD with nonspecific ST-T abnormality similar to EMS EKG. 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 Washington. Serial troponin enzymes ordered. Patient does not have chest pain although she is mild short of breath because of abdominal pain. 3. Fall with elevated CPK: CK is not in the range of rhabdomyolysis. IV fluid normal saline ordered. Recheck CK tomorrow a.m. 4. Acute encephalopathy probably metabolic/infectious from colitis: Treat the underlying cause. PT OT evaluation. fabrication manager consult. 5. Other comorbidities include hypertension, mixed dyslipidemia, history of remote syncope about 2 to 3 years ago: It is unclear at this time patient had syncope but patient was found on the floor so there is high suspicion. When the bed is available in PCU patient can be transferred to PCU. VTE prophylaxis: Bilateral SCDs. Pharmacological prophylaxis contraindicated in view of active GI bleed Living will/advanced directive/end of life care: Patient does not have living will or advanced directive. She says her son is next to kin and power of licensed surveyor for health. At this point of time, patient is confused and disoriented but brief discussion involving full code, DNR CC arrest and DNR CC, the patient opted for full code. Will further talk with patient's son. At this point of time, we will put her full code unverified Total time spent in [id number] encounter in discussion of advanced directive 16 minutes. 2D echo October 2019 Interpretation Summary Left ventricular systolic function is normal. The estimated ejection fraction is 70 %. Apical false tendon noted. The left atrium is mildly enlarged. Mild (1+) mitral valve insufficiency. Mild tricuspid valve insufficiency. Mild focal aortic valve calcification. Right ventricular systolic pressure estimated to be 48 mmHg. Transmitral diastolic flow velocities suggest diastolic dysfunction (pseudonormal pattern). Charges/Coding Visit Charges Inpatient E&M: 54715 Init Hosp L3 Procedures Hospitalists Procedures: 04665 Advncd Care Plan 30 Min
[2020-12-29] MEDS: Ciprofloxacin 400 MG/200 ML BAG 200 MG IV (18:21)
--- NOTE | 2020-12-29 18:52 | PCS.PANDOC ---
PANDEMIC DOCUMENTATION INITIATED: Date: 12/02/2020 Time: 190
[2020-12-29 18:57] LABS: Magnesium 2.2 mg/dL (1.6-2.6)
[2020-12-29] MEDS: Lactated Ringers 1,000 ML 150 ML IV (20:22)
[2020-12-29] MEDS: metroNIDAZOLE 500 MG/100 ML BAG 100 MG IV (20:22)
[2020-12-29] MEDS: Morphine 2 MG/ML Syringe IV (22:29)
[2020-12-29] MEDS: Metoprolol Tartrate 25 MG Tablet PO (22:30)
[2020-12-29] MEDS: traZODone 100 MG Tablet PO (22:30)
[2020-12-30] VITALS (19 sets, daily range): BP systolic 124–190; BP diastolic 61–101; PULSE 76–107; RESP 16–20; TEMP 36.4–37.2; O2SAT 89–98
--- NOTE | 2020-12-30 | GASB_PTH ---
PATIENT: GARY MORRIS LOC: MS3 U#:[id number] AGE/SX: 75/F [place] [facility] [place]: Dr. Zana Em DO : 1945 BED: 1 DIS: 01/04/2021 SPEC #: [id number] RECD: 12/30/20 12:13 STATUS: JESUS ALBERTO HOGAN #: [id number] MATIAS: 12/30/20 00:[address]: Suleiman Taylor DEPT: SURGICAL PATHOLOGY RECD BY: Marvin Guzman ENTERED: 12/31/20 12:14 SP TYPE: Gastric Bx OTHR DR: MD Dr. Bradley Hector MD Tissues: A - Gastric mucous membrane B - COLON BIOPSY Procedures: Surgery Specimen Level IV Comments: @ Ordering doctor for SUIV edited from to @ by RGOOD at 12/31/20 142 @ Submitting doctor edited from to @ by RGOOD at 12/31/201421 HEADER OPERATION: [place] [place] DIAGNOSIS: Colitis, abdomen pain TISSUE SUBMITTED: A ? Antrum biopsy for histo and H. pylori, B ? Random colonic biopsy MICROSCOPIC DIAGNOSIS A. Antrum biopsy: Mild gastritis. Moderate mucosal congestion and hemorrhage. See microscopic description and comment. B. Colon, random biopsy: Fragments of colonic mucosa with extensive ulceration and associated acute inflammation and changes consistent with ischemic colitis. SJ:andre 01/01/2021 COMMENT A. The results of immunohistochemistry for Helicobacter pylori will be reported separately ([id number]). Correlation with clinical, endoscopic findings and appropriate follow up are necessary. Case has been reviewed in consultation with Dr. Hall who concurs with the above diagnosis. IDC:AM MICROSCOPIC DESCRIPTION Slides are reviewed. A. The specimen shows fragments of gastric mucosa with chronic inflammatory cell infiltrates in the lamina propria consisting of lymphocytes and plasma cells, consistent with mild chronic gastritis. Moderate mucosal congestion and hemorrhage are also noted. GROSS DESCRIPTION A - Received in fixative is one container labeled with the patient's name and designated gastric antrum. The specimen consists of two irregular fragments of light [place] soft tissue that in aggregate measure 0.8 x 0.5 x 0.1 cm. The specimen is totally submitted in one cassette. B - Received in fixative is one container labeled with the patient's name and designated random colon biopsy. The specimen consists of multiple irregular fragments of light [place] soft tissue that in aggregate measure 1 x 0.5 x 0.1 cm. The specimen is totally submitted in one cassette. / AM:andre 12/31/2020 TC:5 CPT: 95640 x2
[2020-12-30 00:11] LABS: Troponin-I HS 128 pg/mL (3.0-54.0)
[2020-12-30 02:06] LABS: Troponin-I HS 120 pg/mL (3.0-54.0)
[2020-12-30] MEDS: Lactated Ringers 1,000 ML 150 ML IV (02:54)
[2020-12-30] MEDS: Lisinopril 5 MG Tablet PO ×2 (02:54→08:06)
[2020-12-30 05:13] LABS: Absolute Lymphocyte Count 0.83 X10^3/uL (0.83-4.51); Absolute Neutrophil Count 9.7 X10^3/uL (2.0-7.7); Basophil# 0.04 X10^3/uL; Basophil% 0.4 % (0-1); Eosinophil# 0.02 X10^3/uL; Eosinophils% 0.2 % (0-5); Hematocrit 40.6 % (37-47); Hemoglobin 13.2 g/dL (12.0-15.0); Lymphocyte # 0.83 X10^3/ul (0.83-4.51); Lymphocyte % 7.3 % (19-41); Mean Corp Hgb Conc 32.5 g/dL (32-36); Mean Corpuscular Hgb 30.1 pg (27.0-32.0); Mean Corpuscular Volume 92.7 fL (81-99); Mean Platelet Vol. 10.1 fl (6.2-12.0); Monocyte# 0.78 X10^3/uL; Monocyte% 6.8 % (0-10); NRBC Flagged by Analyzer 0 % (0-5); Neutrophil # 9.68 X10^3/uL (2.7-7.7); Neutrophil % 84.9 % (47-70); Platelet Count 171 K/mm3 (150-450); RBC Distribution Width CV 12.4 % (11.6-14.6); RBC Distribution Width SD 42.5 fl (35.1-43.9); Red Blood Count 4.38 M/mm3 (4.2-5.4); White Blood Count 11.4 K/mm3 (4.4-11.0)
[2020-12-30 05:41] LABS: CPK Total, Creatine Kinase 713 U/L (26-192); Troponin-I HS 110 pg/mL (3.0-54.0)
[2020-12-30 05:53] LABS: ALB/GLOB Ratio 0.7 RATIO (0.9-2.4); AST(SGOT) 63 U/L (15-37); Alanine Aminotransfer ALT/SGPT 23 U/L (13-56); Albumin, Serum 2.6 g/dL (3.2-5.0); Alkaline Phosphatase 88 U/L (45-117); Anion Gap 9 (5-15); BUN 28 mg/dL (7-18); Calcium,Total 8.4 mg/dL (8.5-10.1); Chloride 107 mmol/L (98-107); Creatinine, Serum 0.64 mg/dL (0.55-1.02); EST Glomerular Filtration Rate 97 mL/min (>60); Est Glom Filt Rate - Afr Amer 117 mL/min (>60); Estimated Creatinine Clearance 40.83 ml/min; Globulin 3.8 g/dL (2.2-4.2); Glucose 107 mg/dL (74-106); Potassium 3.4 mmol/L (3.5-5.1); Protein, Total 6.4 g/dL (6.4-8.2); Sodium Level 138 mmol/L (136-145); Thyroid Stim Hormone (TSH) 0.12 uIU/mL (0.358-3.74)
[2020-12-30] MEDS: metroNIDAZOLE 500 MG/100 ML BAG 100 MG IV ×3 (06:05→22:22)
[2020-12-30] MEDS: Levothyroxine 112 MCG Tablet PO (06:06)
--- NOTE | 2020-12-30 06:14 | CON.PCM.SX_ITS ---
Assessment & Plan Assessment/Plan (1) Colitis: PLAN: FULL CONSULT TO FOLLOW Recommendations: I have no surgical options to offer patient No acute surgical pathology at this point in time. I recommend GI medicine consultation HPI Consult Data Date of Consult: 12/30/20 HPI Narrative HPI Narrative: GARY MORRIS, is a 75 F who presents with fall and brought to [facility] ED by EMS. Patient is a poor historian, with known dementia, she lives alone, but has a visiting aide come by, but hasn't been able to, due to aide having COVID. Patient was found on floor, blood noted in toilet. Patient complaint of abdominal pain and blood in stools for days. Noted initially to have normal Hgb in the ED, however, patient complained of generalized abdominal pain. Noted to have mild leukocytosis with left shift of differential. CT scan findings of possible colitis with large bowel wall thickening, no evidence of perforation [facility] Medical History Abnormal EKG Anxiety Arthritis Dementia Depression Difficulty swallowing Essential hypertension GERD (gastroesophageal reflux disease) Graves disease Hemorrhoid Hx TIA/stroke w/o resid Hypothyroidism Mixed hyperlipidemia Smoker Syncope Home Medications gabapentin 300 mg PO BIDCM 03/16/17 [History Last Taken 12/27/20] levothyroxine 112 mcg PO DAILY 03/16/17 [History Last Taken 12/27/20] metoprolol tartrate 25 mg PO BID 03/16/17 [History Last Taken 12/27/20] omeprazole 40 mg PO DAILY 03/16/17 [History Last Taken 12/27/20] paroxetine HCl 40 mg PO DAILY 03/16/17 [History Last Taken 12/27/20] rosuvastatin 10 mg PO QHS 03/16/17 [History Last Taken 12/27/20] tizanidine 1 - 2 tab PO Q8H PRN 03/16/17 [History Last Taken Unknown] trazodone 100 mg PO QHS 03/16/17 [History Last Taken 12/27/20] aspirin 81 mg PO QHS 06/21/17 [History Last Taken 12/27/20] cholecalciferol (vitamin D3) 125 mcg (5,000 unit) capsule 125 mcg PO DAILY 10/29/20 [History Last Taken 12/27/20] lisinopril 5 mg tablet 5 mg PO DAILY 10/29/20 [History Last Taken 12/27/20] oxycodone-acetaminophen 5 mg-325 mg tablet 1 tab PO Q6H PRN 10/29/20 [History Last Taken Unknown] Allergy/AdvReac Type Severity Reaction Status Date / Time iodine Allergy Severe Other Verified 12/29/20 13:46 NSAIDS (Non-Steroidal Allergy Anaphylaxis Verified 12/29/20 13:46 Anti-Inflamma Penicillins Allergy Hives Verified 12/29/20 13:46 Sulfa (Sulfonamide Allergy Unknown Verified 12/29/20 13:46 Antibiotics) Family History Mother Esophageal cancer Hypertension CVA (cerebral vascular accident) Cardiac arrhythmia Surgical History History of appendectomy History of bilateral cataract extraction History of bunionectomy of both great toes Hx of cholecystectomy Hx of eye surgery S/P carpal tunnel release S/P total abdominal hysterectomy and bilateral salpingo-oophorectomy Social History Smoking Status: Current every day smoker tobacco type: cigarettes second hand exposure: Yes alcohol intake: never substance use type: does not use caffeine: Yes Type: coffee Number of servings: 1 what type of physical activity do you participate in: none frequency: does not exercise seatbelt use: always ROS ROS Narrative non contributory - patient is poor historian, see HPI Physical Exam Const alert HEENT normocephalic Neck full ROM Resp normal respiratory effort GI soft to palpation Palpation: tender other (generalized, no peritoneal signs noted) Extremity General Extremity: Negative for edema Lab / Micro Data Result Diagrams: 12/30/20 05:06 12/30/20 05:06 Labs: Laboratory Results - last 24 hr 12/29/20 13:20: WBC 17.0 H, RBC 4.74, Hgb 14.1, Hct 42.9, MCV 90.5, MCH 29.7, MCHC 32.9, RDW Std Deviation 41.9, RDW Coeff of [place]idi 12.7, Plt Count 250, MPV 10.9, Immature Gran % (Auto) 0.600, Neut % (Auto) 79.0 H, Lymph % (Auto) 5.9 L, [place] % (Auto) 7.4, Eos % (Auto) 6.8 H, Baso % (Auto) 0.3, Absolute Neuts (auto) 13.4 H, Absolute Lymphs (auto) 1.01, Nucleated RBC % 0, Differential Comment SCANNED 12/29/20 13:20: Sodium 141, Potassium 3.4 L, Chloride 104, Carbon Dioxide 27.0, Anion Gap 10, BUN 39 H, Creatinine 1.12 H, Estim Creat Clear Calc 36.45, Est GFR (MDRD) Af Amer 61, Est GFR (MDRD) Non-Af 51 L, BUN/Creatinine Ratio 34.8 H, Glucose 149 H, Calcium 9.6, Total Bilirubin 0.60, AST 51 H, ALT 20, Alkaline Phosphatase 107, Troponin I High Sens 128 H*, Total Protein 7.2, Albumin 3.2, Globulin 4.0, Albumin/Globulin Ratio 0.8 L 12/29/20 13:20: Total Creatine Kinase 752 H 12/29/20 13:20: Magnesium 2.2 12/29/20 16:05: Urine Color Yellow, Urine Clarity Sl. Cloudy, Urine pH 5.0, Ur Specific [place] 1.025, Urine Protein 30 H, Urine Glucose (UA) Normal, Urine Ketones Negative, Urine Occult Blood 150 H, Urine Nitrite Positive H, Urine [place] irubin Negative, Urine Urobilinogen Normal, Ur Leukocyte Esterase Negative, Urine RBC 0 SEEN, Urine WBC 0-5 SEEN, Ur Squamous Epith Cells 0 SEEN, Urine Bacteria 2+, Fine Granular Casts 0-5 SEEN, Urine Mucus 0 SEEN 12/29/20 16:24: Lactic Acid Cancelled 12/29/20 17:22: Lactic Acid 1.4 12/29/20 23:30: Troponin I High Sens 128 H* 12/30/20 01:37: Troponin I High Sens 120 H 12/30/20 05:06: WBC 11.4 H, RBC 4.38, Hgb 13.2, Hct 40.6, MCV 92.7, MCH 30.1, MCHC 32.5, RDW Std Deviation 42.5, RDW Coeff of [place]idi 12.4, Plt Count 171, MPV 10.1, Immature Gran % (Auto) 0.400, Neut % (Auto) 84.9 H, Lymph % (Auto) 7.3 L, [place] % (Auto) 6.8, Eos % (Auto) 0.2, Baso % (Auto) 0.4, Absolute Neuts (auto) 9.7 H, Absolute Lymphs (auto) 0.83, Nucleated RBC % 0 12/30/20 05:06: Sodium 138, Potassium 3.4 L, Chloride 107, Carbon Dioxide 22.0, Anion Gap 9, BUN 28 H, Creatinine 0.64, Estim Creat Clear Calc 40.83, Est GFR (MDRD) Af Amer 117, Est GFR (MDRD) Non-Af 97, BUN/Creatinine Ratio 44.0 H, Glucose 107 H, Calcium 8.4 L, Total Bilirubin 0.70, AST 63 H, ALT 23, Alkaline Phosphatase 88, Total Protein 6.4, Albumin 2.6 L, Globulin 3.8, Albumin/Globulin Ratio 0.7 L, TSH 0.12 L 12/30/20 05:06: Total Creatine Kinase 713 H, Troponin I High Sens 110 H Micro: Microbiology 12/29/20 14:55 Nasal Secretion SARS-CoV-2 Antigen (Rapid) - Final 12/29/20 14:40 Mucosa - Nasopharyngeal Rapid RSV (DFA) - Final Radiology Impression Brain CT 12/29/20 14:29 IMPRESSION: Chronic involutional changes of the brain. Electronically Signed: Regan Yan MD at 16:06 EDT Tel , Service support , Cervical Spine CT 12/29/20 14:29 IMPRESSION: No acute fracture or subluxation. Electronically Signed: Regan Yan MD at 16:17 EDT Tel , Service support , Abdomen/Pelvis CT 12/29/20 16:14 IMPRESSION: 1. Suspect colitis of the distal transverse colon, descending colon, and proximal sigmoid colon may be secondary to diverticulitis or other infectious colitis including pseudomembranous colitis. No abscess or perforation. 2. Possible gastritis and correlation with endoscopy would be useful. 3. Dilatation of the infrarenal abdominal aorta with a maximal diameter of 2.5 cm. Electronically Signed: Regan Yan MD at 17:19 EDT Tel , Service support ,
[2020-12-30] MEDS: Metoprolol Tartrate 25 MG Tablet PO ×2 (06:17→22:22)
[2020-12-30] MEDS: Morphine 2 MG/ML Syringe IV ×2 (06:17→10:16)
[2020-12-30] MEDS: Paroxetine 20 MG Tablet 40 MG PO (08:05)
[2020-12-30] MEDS: Pantoprazole Sodium 40 MG Tablet PO (08:05)
[2020-12-30] MEDS: 0.9% Saline Lock 10 ML Syringe IV ×2 (08:15→10:16)
[2020-12-30] MEDS: hydrALAZINE 20 MG/ML Vial 10 MG IV (08:15)
[2020-12-30] MEDS: Ciprofloxacin 400 MG/200 ML BAG 200 MG IV ×2 (10:08→21:10)
[2020-12-30] MEDS: Acetaminophen 325 MG Tablet 650 MG PO (10:16)
--- NOTE | 2020-12-30 10:46 | EX.PCM.CON.G ---
HPI Consult Data Date of Consult: 12/30/20 HPI Narrative HPI Narrative: GARY MORRIS she is a 75-year-old with past medical history of GERD, diverticulosis and chronic diarrhea who presented status post fall from home. I was called to see her due to persistent abdominal pain. She has a history of presyncope and a history of possible COPD. When she came into the ED she got a biochemical evaluation that showed an increased white blood cell count increase CPK with an increased BUN/creatinine ratio. She was noted to be normotensive in the ED. She underwent a CT scan of the abdomen and pelvis that is shown increased inflammation at the level of the splenic flexure down to the sigmoid colon. She did undergo upper and lower endoscopy back in 2018. At that time she was discovered to have a moderate size hiatal hernia. She was discovered to have moderate sigmoid diverticular disease and 5 mm adenomatous polyp that was removed. She has diarrhea on a daily basis which she has been her normal for the past several years. She does have a family history of esophageal cancer in her mother. She has a history of gastroesophageal reflux disease that is controlled with omeprazole. 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 resid Hypothyroidism Mixed hyperlipidemia Smoker Syncope Home Medications gabapentin 300 mg PO BIDCM 03/16/17 [History Last Taken 12/27/20] levothyroxine 112 mcg PO DAILY 03/16/17 [History Last Taken 12/27/20] metoprolol tartrate 25 mg PO BID 03/16/17 [History Last Taken 12/27/20] omeprazole 40 mg PO DAILY 03/16/17 [History Last Taken 12/27/20] paroxetine HCl 40 mg PO DAILY 03/16/17 [History Last Taken 12/27/20] rosuvastatin 10 mg PO QHS 03/16/17 [History Last Taken 12/27/20] tizanidine 1 - 2 tab PO Q8H PRN 03/16/17 [History Last Taken Unknown] trazodone 100 mg PO QHS 03/16/17 [History Last Taken 12/27/20] aspirin 81 mg PO QHS 06/21/17 [History Last Taken 12/27/20] cholecalciferol (vitamin D3) 125 mcg (5,000 unit) capsule 125 mcg PO DAILY 10/29/20 [History Last Taken 12/27/20] lisinopril 5 mg tablet 5 mg PO DAILY 10/29/20 [History Last Taken 12/27/20] oxycodone-acetaminophen 5 mg-325 mg tablet 1 tab PO Q6H PRN 10/29/20 [History Last Taken Unknown] Allergy/AdvReac Type Severity Reaction Status Date / Time iodine Allergy Severe Other Verified 12/29/20 13:46 NSAIDS (Non-Steroidal Allergy Anaphylaxis Verified 12/29/20 13:46 Anti-Inflamma Penicillins Allergy Hives Verified 12/29/20 13:46 Sulfa (Sulfonamide Allergy Unknown Verified 12/29/20 13:46 Antibiotics) Family History Mother Esophageal cancer Hypertension CVA (cerebral vascular accident) Cardiac arrhythmia Surgical History History of appendectomy History of bilateral cataract extraction History of bunionectomy of both great toes Hx of cholecystectomy Hx of eye surgery S/P carpal tunnel release S/P total abdominal hysterectomy and bilateral salpingo-oophorectomy Social History Smoking Status: Current every day smoker tobacco type: cigarettes second hand exposure: Yes alcohol intake: never substance use type: does not use caffeine: Yes Type: coffee Number of servings: 1 what type of physical activity do you participate in: none frequency: does not exercise seatbelt use: always ROS Review of Systems ROS Unobtainable: other Constitutional Constitutional: Denies fatigue, fever(s), poor appetite, weight gain or weight loss ENT HEENT: Denies mouth lesions Cardiovascular Cardiovascular: Denies abdominal bloating, abdominal edema or abdominal pain Respiratory/Chest Respiratory/Chest: Denies change in mental status, change in phlegm color, chest congestion or chest tightness Gastrointestinal Gastrointestinal: Reports diarrhea and hematochezia; Denies belching, bloating, change in bowel habits, change in stool character, chewing difficulty, coffee ground emesis, constipation, cramping, dyspepsia, dysphagia, early satiety, excessive flatus, fecal incontinence, heartburn, hematemesis, hemorrhoids, loose stools, melena, nausea, odynophagia, rectal bleeding, tenesmus, vomiting or weight changes Genitourinary Genitourinary: Denies abdominal discomfort, burning urination or itching Musculoskeletal Musculoskeletal: Reports as per HPI; Denies muscle weakness or myalgias Integumentary Integumentary: Denies jaundice Neurologic Neurologic: Denies lack of coordination or weakness Psychiatric Psychiatric: Denies confusion, depression, memory loss, mood swings, paranoia or suicidal ideation Endocrine Endocrinology: Denies systems reviewed and no addt'l complaints, except as documented Hematologic/Lymphatic Hematologic/Lymphatic: Denies anemia, easy bleeding, easy bruising or lymphadenopathy Allergic/Immunologic Allergic/Immunologic: Denies systems reviewed and no addt'l complaints, except as documented Physical Exam Const alert General Appearance: cooperative Orientation / Consciousness: oriented to person HEENT hearing grossly normal bilaterally Head and Scalp: normal to inspection Face and Sinus: face symmetric Nose: external nose normal Mouth: oral and palatal mucosa normal Eyes conjunctivae normal General Eye: normal appearance of both eyes Neck full ROM General: normal visual inspection Lymph Lymphatic: no lymphadenopathy noted Chest inspection of chest normal and palpation of chest normal Chest: symmetrical chest wall rise Resp normal respiratory effort Effort and Inspection: able to speak in complete sentences Cardio regular rate GI non-distended GI Narrative: She is very tender in the midepigastric area and the left upper quadrant extending into the left lower quadrant without rebound tenderness, ecchymosis or palpable mass. Percussion: normal to percussion Rectal Exam: deferred Neuro Speech: speech normal Gait (Neuro): normal gait Lab / Micro Data Result Diagrams: 12/30/20 05:06 12/30/20 05:06 Labs: Laboratory Results - last 24 hr 12/29/20 13:20: WBC 17.0 H, RBC 4.74, Hgb 14.1, Hct 42.9, MCV 90.5, MCH 29.7, MCHC 32.9, RDW Std Deviation 41.9, RDW Coeff of Heidi 12.7, Plt Count 250, MPV 10.9, Immature Gran % (Auto) 0.600, Neut % (Auto) 79.0 H, Lymph % (Auto) 5.9 L, [place] % (Auto) 7.4, Eos % (Auto) 6.8 H, Baso % (Auto) 0.3, Absolute Neuts (auto) 13.4 H, Absolute Lymphs (auto) 1.01, Nucleated RBC % 0, Differential Comment SCANNED 12/29/20 13:20: Sodium 141, Potassium 3.4 L, Chloride 104, Carbon Dioxide 27.0, Anion Gap 10, BUN 39 H, Creatinine 1.12 H, Estim Creat Clear Calc 36.45, Est GFR (MDRD) Af Amer 61, Est GFR (MDRD) Non-Af 51 L, BUN/Creatinine Ratio 34.8 H, Glucose 149 H, Calcium 9.6, Total Bilirubin 0.60, AST 51 H, ALT 20, Alkaline Phosphatase 107, Troponin I High Sens 128 H*, Total Protein 7.2, Albumin 3.2, Globulin 4.0, Albumin/Globulin Ratio 0.8 L 12/29/20 13:20: Total Creatine Kinase 752 H 12/29/20 13:20: Magnesium 2.2 12/29/20 16:05: Urine Color Yellow, Urine Clarity Sl. Cloudy, Urine pH 5.0, Ur Specific [place] 1.025, Urine Protein 30 H, Urine Glucose (UA) Normal, Urine Ketones Negative, Urine Occult Blood 150 H, Urine Nitrite Positive H, Urine Bilirubin Negative, Urine Urobilinogen Normal, Ur Leukocyte Esterase Negative, Urine RBC 0 SEEN, Urine WBC 0-5 SEEN, Ur Squamous Epith Cells 0 SEEN, Urine Bacteria 2+, Fine Granular Casts 0-5 SEEN, Urine Mucus 0 SEEN 12/29/20 16:24: Lactic Acid Cancelled 12/29/20 17:22: Lactic Acid 1.4 12/29/20 23:30: Troponin I High Sens 128 H* 12/30/20 01:37: Troponin I High Sens 120 H 12/30/20 05:06: WBC 11.4 H, RBC 4.38, Hgb 13.2, Hct 40.6, MCV 92.7, MCH 30.1, MCHC 32.5, RDW Std Deviation 42.5, RDW Coeff of Heidi 12.4, Plt Count 171, MPV 10.1, Immature Gran % (Auto) 0.400, Neut % (Auto) 84.9 H, Lymph % (Auto) 7.3 L, [place] % (Auto) 6.8, Eos % (Auto) 0.2, Baso % (Auto) 0.4, Absolute Neuts (auto) 9.7 H, Absolute Lymphs (auto) 0.83, Nucleated RBC % 0 12/30/20 05:06: Sodium 138, Potassium 3.4 L, Chloride 107, Carbon Dioxide 22.0, Anion Gap 9, BUN 28 H, Creatinine 0.64, Estim Creat Clear Calc 40.83, Est GFR (MDRD) Af Amer 117, Est GFR (MDRD) Non-Af 97, BUN/Creatinine Ratio 44.0 H, Glucose 107 H, Calcium 8.4 L, Total Bilirubin 0.70, AST 63 H, ALT 23, Alkaline Phosphatase 88, Total Protein 6.4, Albumin 2.6 L, Globulin 3.8, Albumin/Globulin Ratio 0.7 L, TSH 0.12 L 12/30/20 05:06: Total Creatine Kinase 713 H, Troponin I High Sens 110 H Micro: Microbiology 12/30/20 08:30 Stool Stool Lactoferrin - Final 12/30/20 08:30 Stool Stool Occult Blood (KANDY) - Final Occult Blood Positive 12/29/20 14:55 Nasal Secretion SARS-CoV-2 Antigen (Rapid) - Final 12/29/20 14:40 Mucosa - Nasopharyngeal Rapid RSV (DFA) - Final Radiology Impression Brain CT 12/29/20 14:29 IMPRESSION: Chronic involutional changes of the brain. Electronically Signed: Regan Yan MD at 16:06 EDT Tel , Service support , Cervical Spine CT 12/29/20 14:29 IMPRESSION: No acute fracture or subluxation. Electronically Signed: Regan Yan MD at 16:17 EDT Tel , Service support , Abdomen/Pelvis CT 12/29/20 16:14 IMPRESSION: 1. Suspect colitis of the distal transverse colon, descending colon, and proximal sigmoid colon may be secondary to diverticulitis or other infectious colitis including pseudomembranous colitis. No abscess or perforation. 2. Possible gastritis and correlation with endoscopy would be useful. 3. Dilatation of the infrarenal abdominal aorta with a maximal diameter of 2.5 cm. Electronically Signed: Regan Yan MD at 17:19 EDT Tel , Service support , Assessment & Plan Assessment/Plan (1) Colitis: PLAN: The differential diagnosis for abdominal pain would be ischemic colitis, infectious colitis and less likely ulcerative colitis. Patient should undergo flexible sigmoidoscopy for evaluation of the left side of the colon with biopsies. If the flexible sigmoidoscopy is worse than seen on CT scan she will need a CT angiography. (2) Abdominal pain: PLAN: She will need an upper endoscopy to evaluate her upper GI tract due to the fact that she is exquisitely tender in the midepigastric area. Would also recommend to check ESR, CRP, lactate and repeat her CPK.
--- NOTE | 2020-12-30 11:10 | CASEMGMT ---
BARNEY VASQUEZ Face to Face with patient for initial transition planning/care coordination assessment. RN PEDRO introduced self and role at [facility]. Patient sitting in chair, alert and oriented. Patient willing to participate in assessment and is able to answer all questions appropriately. Care providers, pharmacy, and demographics verified. Patient wishes to discharge home, will monitor for need for HHC pending therapy. Patient states she has no further needs or concerns at this time. CM to follow for discharge planning needs that may arise. PCP: Rosa Maria Specialists: Felix manager procurement Preferred Pharmacy: [email or web address] Insurance: [employer] Prescription Benefit: yes Living Will/HPOA: none LNOK: son Living Arrangements: Patient lives alone in a 2nd floor apartment with elevator. Patient states she is independent for self care. Patient has aide services through [employer]: [place] DME/HHC: Patient states she has shower chair, cane, walker, grab bars, and medical alert at home. Patient has had HHC in the past but could not recall company. Patient has PEDRO Allison at [facility]. Disposition Plan: Patient to discharge home with family support and follow-up plans in place. Will monitor for need for HHC. Cielo CANDELARIO, RN, CM
--- NOTE | 2020-12-30 11:31 | CASEMGMT ---
Social Work Note SW received referral for advanced directives. SW in to speak with pt. Pt is alert and orientated x2, almost 3. Pt alert to self, place, somewhat time. Pt knew it was December but stated the year was 1981. SW asked pt about HCPOA/LW. Pt states she hasn't completed HCPOA or LW and denied wanting to complete, pt denied wanting to even take documents to review. Pt states she has two children, a son and daughter. SW explained that without HCPOA then it would go to both children to make HCPOA decisions for pt. Pt states she is aware of this and her children are aware. SW asked again if pt wanted to complete or review documents and pt denied. SW infomed pt to let staff know if she changes her mind. Pt states understanding. Cielo Guerin SUPERVISOR [employer], CANOE INSPECTOR FINAL
--- NOTE | 2020-12-30 13:23 | WOUNDNOTE ---
Lab called and stated there was not enough stool to run a c.diff. BARNEY Michel aware.
--- NOTE | 2020-12-30 13:30 | CASEMGMT ---
Social Work Note JOSI updated that pt has CM Millicent Allison through [facility]. SW placed a call to Millicent Allison and updated her on pt's admission to [facility]. Millicent states pt has aide services for two hours Wednesday and through [employer], [facility] [employer], and 5 meals a week through [facility]. Millicent asked to be updated when pt is discharged and to fax over discharge paperwork. Cielo Guerin SAFETY PERSON, CORE MICROARCHITECT
--- NOTE | 2020-12-30 14:00 | IMM_PTH ---
PATIENT: GARY MORRIS LOC: MS3 U#:[id number] AGE/SX: 75/F ROOM: [facility] RE12/29/[address]: Dr. Zana Em DO : 1945 BED: 1 DIS: 01/04/2021 SPEC #: [id number] RECD: 12/31/20 10:05 STATUS: JESUS ALBERTO REMarcy #: [id number] MATIAS: 12/30/20 14:[address]: Ra Claudiahsaan DEPT: IMMUNOHISTOCHEMISTRY RECD BY: Pebbles Davenport ENTERED: 12/31/20 10:06 SP TYPE: IMMUNO OTHR DR: MD Dr. Bradley Hector MD Tissues: A - Stomach, NOS Procedures: H Pylori (initial) PHYSICIAN & INSTITUTION [place] [phone] SPECIMEN INFORMATION: Tissue Source: A ? Antrum biopsy Clinical Info: Colitis, abdomen pain Specimen Number: [id number] CPT code: 18213 METHODOLOGY: Deparaffinized sections of prefer/formalin-fixed tissue or PAP/DQ stained slides are incubated with monoclonal/polyclonal antibodies/oligonucleotide probes. Localization is made via biotin free immunoperoxidase method. Appropriate controls are performed and reacted as expected. Results on target cell population are indicated in the following table: RESULTS: ANTIBODY / CLONE RESULT Block A H Pylori (polyclonal) negative These tests were developed and their performance characteristics determined by [facility]. They may not have been cleared or approved by the U.S. Food and Drug Administration. The FDA has determined that such clearance or approval is not necessary. INTERPRETATION: A. Antrum biopsy: Negative for Helicobacter pylori organisms. SJ:andre 01/02/2021
[2020-12-30] MEDS: 0.9% Normal Saline 1,000 ML 100 ML IV (14:20)
--- NOTE | 2020-12-30 15:24 | OP.EGD_ITS ---
Patient Name: Anabela Shea Procedure Date: 12/30/2020 2:39 PM Date of : 1945 Age: 75 Procedure: Upper GI endoscopy Indications: Hematochezia Providers: Suleiman Taylor DO Medicines: Monitored Anesthesia Care Patient Profile: This is a 75 year old female. Patient has symptoms of acute abdominal cramping, acute abdominal distention and acute global abdominal pain. The symptoms first began 05,. Previously obtained CT showed inflammation in the colon and inflammation in the stomach. Complications: No immediate complications. Procedure: Pre-Anesthesia Assessment: - Pre-procedure physical examination revealed no contraindications to sedation. - After reviewing the risks and benefits, the patient was deemed in satisfactory condition to undergo the procedure. - The anesthesia plan was to use moderate sedation/analgesia (conscious sedation). - The anesthesia plan was to use moderate sedation/analgesia (conscious sedation). After obtaining informed consent, the endoscope was passed under direct vision. Throughout the procedure, the patient's blood pressure, pulse, and oxygen saturations were monitored continuously. The gastroscope was introduced through the mouth, and advanced to the second part of duodenum. The upper GI endoscopy was accomplished without difficulty. The patient tolerated the procedure well. The patient tolerated the procedure well. The total duration of the procedure was 8 hours 0 minutes. Moderate Sedation: Moderate (conscious) sedation was administered by the endoscopy nurse and supervised by the endoscopist. The patient's oxygen saturation, heart rate, blood pressure and response to care were monitored. Scope In: 2:50:59 PM Scope Out: 2:56:51 PM Total Procedure Duration Time 0 hours 5 minutes 52 seconds Findings: The examined esophagus was normal. Localized severe inflammation with hemorrhage characterized by congestion (edema), erosions, erythema and friability was found in the gastric antrum. Biopsies were taken with a cold forceps for histology. The second portion of the duodenum was normal. Impression: - Normal esophagus. - Mucosal changes suspicious for gastritis with hemorrhage. Biopsied. - Normal second portion of the duodenum. - Normal esophagus. - Acute gastritis with hemorrhage. Biopsied. - Normal second portion of the duodenum. Recommendation: - Await pathology results. - Await pathology results. - No aspirin, ibuprofen, naproxen, or other non-steroidal anti-inflammatory drugs for 4 weeks. - Clear liquid diet daily. - Use Protonix (pantoprazole) 40 mg PO BID for 8 weeks. - Return to my office in 2 weeks. - The findings and recommendations were discussed with the patient. Procedure Code(s): --- Professional --- 03716, Esophagogastroduodenoscopy, flexible, transoral; with biopsy, single or multiple CPT copyright 2017 [employer]. All rights reserved. The codes documented in this report are preliminary and upon other sales support worker review may be revised to meet current compliance requirements. Suleiman Taylor DO 12/30/2020 3:23:44 PM This report has been signed electronically. Number of Addenda: 1 Note Initiated On: 12/30/2020 2:39 PM Addendum Number: 1 Addendum Date: 12/18/2021 3:47:33 PM MAC was used instead of moderate sedation for this patient. Suleiman Taylor DO 12/18/2021 3:47:43 PM This report has been signed electronically.
--- NOTE | 2020-12-30 15:25 | OP.CCLET_ITS ---
12/18/2021 Kaela Crane [address] [place] [address] Re : Upper GI endoscopy procedure for Anabela Shea Dear Dr. Crane This procedure was performed on Wednesday, December 30, 2020. My impressions and recommendations are as follows: Impressions : - Normal esophagus. - Mucosal changes suspicious for gastritis with hemorrhage. Biopsied. - Normal second portion of the duodenum. - Normal esophagus. - Acute gastritis with hemorrhage. Biopsied. - Normal second portion of the duodenum. Recommendations : - Await pathology results. - Await pathology results. - No aspirin, ibuprofen, naproxen, or other non-steroidal anti-inflammatory drugs for 4 weeks. - Clear liquid diet daily. - Use Protonix (pantoprazole) 40 mg PO BID for 8 weeks. - Return to my office in 2 weeks. - The findings and recommendations were discussed with the patient. My findings are described in the full procedure note, which is enclosed. If I can be of further assistance, please feel free to contact me at . Sincerely, Suleiman Taylor, 12/30/2020 3:23:44 PM This report has been signed electronically.
--- NOTE | 2020-12-30 15:38 | OP.COLON_ITS ---
Patient Name: Anabela Shea Procedure Date: 12/30/2020 2:59 PM Date of : 1945 Age: 75 Procedure: Colonoscopy Indications: Hematochezia Providers: Suleiman Taylor DO Patient Profile: This is a 75 year old female. Patient has symptoms of acute abdominal cramping, acute abdominal distention and acute global abdominal pain. The symptoms first began 05,. Previously obtained CT showed inflammation in the colon and inflammation in the stomach. This is a 75 year old female. Last Colonoscopy: 3 years ago. Patient has symptoms. Complications: No immediate complications. Procedure: Pre-Anesthesia Assessment: - Pre-procedure physical examination revealed no contraindications to sedation. - After reviewing the risks and benefits, the patient was deemed in satisfactory condition to undergo the procedure. - The anesthesia plan was to use moderate sedation/analgesia (conscious sedation). - The anesthesia plan was to use moderate sedation/analgesia (conscious sedation). - Pre-procedure physical examination revealed no contraindications to sedation. - After reviewing the risks and benefits, the patient was deemed in satisfactory condition to undergo the procedure. - Monitored anesthesia care under the supervision of a WAX MOLDER was determined to be medically necessary for this procedure based on age 65 or older. After I obtained informed consent, the scope was passed under direct vision. Throughout the procedure, the patient's blood pressure, pulse, and oxygen saturations were monitored continuously. The colonoscope was introduced through the anus and advanced to the cecum, identified by appendiceal orifice and ileocecal valve. The colonoscopy was performed without difficulty. The patient tolerated the procedure well. The quality of the bowel preparation was inadequate. The ileocecal valve was photographed. Scope In: 3:02:50 PM Scope Withdrawal Time 0 hours 4 minutes 21 seconds Scope Out: 3:12:40 PM Total Procedure Duration Time 0 hours 9 minutes 50 seconds Findings: Multiple large-mouthed diverticula were found in the sigmoid colon. There was narrowing of the colon in association with the diverticular opening. A segmental area of severely granular mucosa was found in the sigmoid colon. This was biopsied with a cold jumbo forceps for histology. Biopsies were taken with a cold forceps for histology. The digital rectal exam was normal. Pertinent negatives include no palpable rectal lesions. Impression: - Preparation of the colon was inadequate. - No specimens collected. - Left-sided ischemic colitis. Biopsied. Recommendation: - Return patient to hospital low for ongoing care. - Clear liquid diet today. - No aspirin, ibuprofen, naproxen, or other non-steroidal anti-inflammatory drugs for 13 days after biopsy. - Return to my office in 2 weeks. - Use Bentyl (dicyclomine) 10 mg PO TID 30 min AC for 7 days. - Repeat colonoscopy is recommended for surveillance. The colonoscopy date will be determined after pathology results from today's exam become available for review. Procedure Code(s): --- Professional --- 38648, Colonoscopy, flexible; with biopsy, single or multiple CPT copyright 2017 [employer]. All rights reserved. The codes documented in this report are preliminary and upon pre coder review may be revised to meet current compliance requirements. Suleiman Taylor DO 12/30/2020 3:38:03 PM This report has been signed electronically. Number of Addenda: 1 Note Initiated On: 12/30/2020 2:59 PM Addendum Number: 1 Addendum Date: 12/18/2021 3:47:54 PM MAC was used instead of moderate sedation for this patient. Suleiman Taylor DO 12/18/2021 3:48:02 PM This report has been signed electronically.
--- NOTE | 2020-12-30 15:39 | OP.CCLET_ITS ---
12/18/2021 Kaela Crane [place] [id number] [place] [address] Re : Colonoscopy procedure for Anabela Shea Dear Dr. Crane This procedure was performed on Wednesday, December 30, 2020. My impressions and recommendations are as follows: Impressions : - Preparation of the colon was inadequate. - No specimens collected. - Left-sided ischemic colitis. Biopsied. Recommendations : - Return patient to hospital low for ongoing care. - Clear liquid diet today. - No aspirin, ibuprofen, naproxen, or other non-steroidal anti-inflammatory drugs for 13 days after biopsy. - Return to my office in 2 weeks. - Use Bentyl (dicyclomine) 10 mg PO TID 30 min AC for 7 days. - Repeat colonoscopy is recommended for surveillance. The colonoscopy date will be determined after pathology results from today's exam become available for review. My findings are described in the full procedure note, which is enclosed. If I can be of further assistance, please feel free to contact me at . Sincerely, Suleiman Taylor, 12/30/2020 3:38:03 PM This report has been signed electronically.
--- NOTE | 2020-12-30 16:18 | PCM.PN.HOSP ---
Subjective Subjective Afebrile. Heart rate in 100s. Pulse ox 92% on room air. Discussed with the audit consultant and surgeon. Patient had EGD and colonoscopy in afternoon. Patient is still has severe abdominal pain predominantly left side. Objective Data Objective Data Vital Signs: Vital Signs Temp Pulse Resp BP Pulse Ox 97.6 F L 102 H 16 139/68 H 92 12/30/20 15:40 12/30/20 15:40 12/30/20 15:40 12/30/20 15:40 12/30/20 15:40 Oxygen Delivery Method Room Air Weight: 120 lb 13.013 oz Body Mass Index (BMI) 21.2 Intake & Output: Intake and Output for Last 24 Hours 12/28/20 12/29/20 12/30/20 23:59 23:59 23:59 Intake Total 1387.5 / 1437.5 1380 / 1380 Output Total 800 / 800 Balance 1387.5 / 1437.5 580 / 580 Lab / Micro Data Result Diagrams: 12/30/20 05:06 12/30/20 05:06 Labs: Laboratory Results - last 24 hr 12/29/20 13:20: Magnesium 2.2 12/29/20 16:05: Urine Color Yellow, Urine Clarity Sl. Cloudy, Urine pH 5.0, Ur Specific Craig 1.025, Urine Protein 30 H, Urine Glucose (UA) Normal, Urine Ketones Negative, Urine Occult Blood 150 H, Urine Nitrite Positive H, Urine Bilirubin Negative, Urine Urobilinogen Normal, Ur Leukocyte Esterase Negative, Urine RBC 0 SEEN, Urine WBC 0-5 SEEN, Ur Squamous Epith Cells 0 SEEN, Urine Bacteria 2+, Fine Granular Casts 0-5 SEEN, Urine Mucus 0 SEEN 12/29/20 16:24: Lactic Acid Cancelled 12/29/20 17:22: Lactic Acid 1.4 12/29/20 23:30: Troponin I High Sens 128 H* 12/30/20 01:37: Troponin I High Sens 120 H 12/30/20 05:06: WBC 11.4 H, RBC 4.38, Hgb 13.2, Hct 40.6, MCV 92.7, MCH 30.1, MCHC 32.5, RDW Std Deviation 42.5, RDW Coeff of Heidi 12.4, Plt Count 171, MPV 10.1, Immature Gran % (Auto) 0.400, Neut % (Auto) 84.9 H, Lymph % (Auto) 7.3 L, Keith % (Auto) 6.8, Eos % (Auto) 0.2, Baso % (Auto) 0.4, Absolute Neuts (auto) 9.7 H, Absolute Lymphs (auto) 0.83, Nucleated RBC % 0 12/30/20 05:06: Sodium 138, Potassium 3.4 L, Chloride 107, Carbon Dioxide 22.0, Anion Gap 9, BUN 28 H, Creatinine 0.64, Estim Creat Clear Calc 40.83, Est GFR (MDRD) Af Amer 117, Est GFR (MDRD) Non-Af 97, BUN/Creatinine Ratio 44.0 H, Glucose 107 H, Calcium 8.4 L, Total Bilirubin 0.70, AST 63 H, ALT 23, Alkaline Phosphatase 88, Total Protein 6.4, Albumin 2.6 L, Globulin 3.8, Albumin/Globulin Ratio 0.7 L, TSH 0.12 L 12/30/20 05:06: Total Creatine Kinase 713 H, Troponin I High Sens 110 H Micro: Microbiology 12/30/20 08:30 Stool Stool Lactoferrin - Final 12/30/20 08:30 Stool Enteric Bacteriology - Final 12/30/20 08:30 Stool Stool Occult Blood (KANDY) - Final Occult Blood Positive 12/29/20 14:55 Nasal Secretion SARS-CoV-2 Antigen (Rapid) - Final 12/29/20 14:40 Mucosa - Nasopharyngeal Rapid RSV (DFA) - Final Radiography Diagnostic Testing: Radiology Impression Cervical Spine CT 12/29/20 14:29 IMPRESSION: No acute fracture or subluxation. Electronically Signed: Regan Yan MD at 16:17 EDT Tel , Service support , Abdomen/Pelvis CT 12/29/20 16:14 IMPRESSION: 1. Suspect colitis of the distal transverse colon, descending colon, and proximal sigmoid colon may be secondary to diverticulitis or other infectious colitis including pseudomembranous colitis. No abscess or perforation. 2. Possible gastritis and correlation with endoscopy would be useful. 3. Dilatation of the infrarenal abdominal aorta with a maximal diameter of 2.5 cm. Physical Exam Narrative Physical exam General: Alert, awake and oriented x3. Still in severe pain HEENT: Atraumatic, PERRLA, EOMI, Normocephalic Oral: Dry oral mucosa. No Gingival or Mucosal Lesions/ Ulcerations Neck: Supple, No JVD, Negative Carotid Bruits Lungs: Air entry diminished in bilateral lung bases. No crepitation/rhonchi Cardiovascular: Regular rate, Regular Rhythm, Normal S1, Normal S2, No murmurs Abdomen: Diffuse tenderness predominantly left lower quadrant. Nondistended. Bowel sounds present. No rigidity but involuntary guarding : No renal angle tenderness. No suprapubic tenderness. Extremities: No edema, Capillary Refill Less than 3 Seconds Skin: No rashes, No breakdown Musculoskeletal: No Tenderness to Palpation of Joints or Extremities Neurological: Cranial nerves II-XII grossly intact, DTR 2+/4 and Symmetrical, Neuro grossly intact Psych/Mental Status: Normal Affect, Appropriate. Assessment & Plan Assessment/Plan (1) Colitis: (2) Fall: QUALIFIERS: Encounter type: initial encounter Qualified Code(s): W19.XXXA - Unspecified fall, initial encounter PLAN: This 75-year-old female admitted with fall, severe subacute abdominal pain with lower GI bleed and CT abdomen suggestive of left-sided colitis. 1. Severe abdominal pain with lower GI bleed probably due to left-sided colitis: Patient is being admitted on MedSurg with telemetry as there is no PCU beds available and it seems her main respirating factor is abdominal pain/colitis. Started on normal saline 150 mill per hour. On broad-spectrum IV antibiotic Cipro and Flagyl. Discussed with surgeon Dr. Dey and she agrees with the plan. She not had recent antibiotic exposure in last 6-month. 12/30 stool test including occult blood and lactoferrin positive. Enteric bacteriology panel negative.EGD shows mucosal changes suspicious for gastritis with hemorrhage which was biopsied. Unprepped colonoscopy was done and impression is left-sided ischemic colitis which was biopsied. Clear liquid diets. Protonix 40 mg twice daily for 8 weeks. No NSAIDs or aspirin. Dicyclomine 10 mg p.o. 3 times daily 30 minutes prior to meal for 7 days. Follow-up in 2 weeks in GI office. Repeat colonoscopy which will be determined after pathology result of biopsy. Earlier surgeon, Dr. Dey saw the patient who recommended GI consult. 2. Elevated troponin and elevated CPK probably type II demand ischemia from severe abdominal pain: As mentioned in HPI, patient recently had cardiology evaluation with a stress and echo test. EKG shows sinus tachycardia at 120 bpm with LAD with nonspecific ST-T abnormality similar to EMS EKG. 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 Washington. 12/30: Serial troponin and CK shows downward trends. Patient does not have chest pain although she is mild short of breath because of abdominal pain. Mild hypokalemia. 3. Fall with elevated CPK: CK is not in the range of rhabdomyolysis. IV fluid normal saline ordered. 4. Acute encephalopathy probably metabolic/infectious from colitis: Treat the underlying cause. PT OT evaluation. associate manager affiliate marketing consult. 5. Other comorbidities include hypertension, mixed dyslipidemia, history of remote syncope about 2 to 3 years ago: It is unclear at this time patient had syncope but patient was found on the floor so there is high suspicion. When the bed is available in PCU patient can be transferred to PCU. VTE prophylaxis: Bilateral SCDs. Pharmacological prophylaxis contraindicated in view of active GI bleed Living will/advanced directive/end of life care: Patient does not have living will or advanced directive. She says her son is next to kin and power of associate attorney for health. At this point of time, patient is confused and disoriented but brief discussion involving full code, DNR CC arrest and DNR CC, the patient opted for full code. Will further talk with patient's son. At this point of time, we will put her full code unverified Total time of the visit including total time spent in counseling or coordination of care, (more than 50% of the total time, spent in obtaining medical information from nurses and other ancillary care providers,explaining to the patient about labs, imaging, diagnosis and management), discussion with surgeon and GI sourcing consultant, review of labs and imaging is 30 minutes. 2D echo October 2019 Interpretation Summary Left ventricular systolic function is normal. The estimated ejection fraction is 70 %. Apical false tendon noted. The left atrium is mildly enlarged. Mild (1+) mitral valve insufficiency. Mild tricuspid valve insufficiency. Mild focal aortic valve calcification. Right ventricular systolic pressure estimated to be 48 mmHg. Transmitral diastolic flow velocities suggest diastolic dysfunction (pseudonormal pattern). Charges/Coding Visit Charges Inpatient E&M: 94602 Subs Hosp L3
--- NOTE | 2020-12-30 17:05 | NURSING ---
THIS NURSE CALLED BRAYDEN NOYOLA'S SON WITH AN UPDATE
--- NOTE | 2020-12-30 19:42 | NURSING ---
- PTS TELE STRIP @ 1922 SHOWED 4 BEATS VT - VSS. PT ASYMPTOMATIC. PICTURE OF STRIP SENT TO DR BOLTON.
[2020-12-30] MEDS: traZODone 100 MG Tablet PO (22:22)
[2020-12-31] VITALS (14 sets, daily range): BP systolic 120–162; BP diastolic 56–95; PULSE 72–105; RESP 16–18; TEMP 36.9–37; O2SAT 95–100
[2020-12-31] MEDS: Levothyroxine 112 MCG Tablet PO (05:57)
[2020-12-31] MEDS: metroNIDAZOLE 500 MG/100 ML BAG 100 MG IV ×3 (05:57→21:19)
[2020-12-31] MEDS: Metoprolol Tartrate 25 MG Tablet PO ×2 (08:48→21:24)
[2020-12-31] MEDS: Paroxetine 20 MG Tablet 40 MG PO (08:48)
[2020-12-31] MEDS: Pantoprazole Sodium 40 MG Tablet PO ×2 (08:48→21:24)
[2020-12-31] MEDS: Lisinopril 5 MG Tablet PO (08:48)
[2020-12-31 08:59] LABS: Hematocrit 37.2 % (37-47); Hemoglobin 12.1 g/dL (12.0-15.0); Mean Corp Hgb Conc 32.5 g/dL (32-36); Mean Corpuscular Hgb 29.9 pg (27.0-32.0); Mean Corpuscular Volume 91.9 fL (81-99); Mean Platelet Vol. 10.1 fl (6.2-12.0); Platelet Count 173 K/mm3 (150-450); RBC Distribution Width CV 12.7 % (11.6-14.6); RBC Distribution Width SD 42.9 fl (35.1-43.9); Red Blood Count 4.05 M/mm3 (4.2-5.4); White Blood Count 12.3 K/mm3 (4.4-11.0)
[2020-12-31 09:20] LABS: Anion Gap 9 (5-15); BUN 13 mg/dL (7-18); BUN/Creat Ratio 34.1 RATIO (10-20); Chloride 108 mmol/L (98-107); Creatinine, Serum 0.38 mg/dL (0.55-1.02); EST Glomerular Filtration Rate 175 mL/min (>60); Est Glom Filt Rate - Afr Amer 212 mL/min (>60); Estimated Creatinine Clearance 40.83 ml/min; Glucose 88 mg/dL (74-106); Magnesium 1.6 mg/dL (1.6-2.6); Potassium 2.8 mmol/L (3.5-5.1); Sodium Level 142 mmol/L (136-145)
[2020-12-31] MEDS: Ciprofloxacin 400 MG/200 ML BAG 200 MG IV ×2 (09:46→21:19)
[2020-12-31] MEDS: hydrALAZINE 20 MG/ML Vial 5 MG IV (11:30)
[2020-12-31] MEDS: Acetaminophen 325 MG Tablet 650 MG PO (11:38)
--- NOTE | 2020-12-31 12:06 | PCM.PN.SRG ---
Subjective Subjective patient still with abdominal pain secondary to colitis having loose bowel movements Objective Data Objective Data Vital Signs: Vital Signs Temp Pulse Resp BP Pulse Ox 98.4 F 88 16 162/95 H 95 12/31/20 02:40 12/31/20 11:30 12/31/20 02:40 12/31/20 11:30 12/31/20 07:56 Oxygen Flow Rate (L/min) 2 Oxygen Delivery Method Nasal Cannula Weight: 56.6 kg Body Mass Index (BMI) 21.2 Intake & Output: Intake and Output for Last 24 Hours 12/29/20 12/30/20 12/31/20 23:59 23:59 23:59 Intake Total 1387.5 / 1437.5 / 300 / 300 Output Total 800 / 800 200 / 200 Balance 1387.5 / 1437.5 1186.67 / 1186.67 100 / 100 Lab / Micro Data Result Diagrams: 12/31/20 08:26 12/31/20 08:26 Labs: Laboratory Results - last 24 hr 12/31/20 08:26: WBC 12.3 H, RBC 4.05 L, Hgb 12.1, Hct 37.2, MCV 91.9, MCH 29.9, MCHC 32.5, RDW Std Deviation 42.9, RDW Coeff of Heidi 12.7, Plt Count 173, MPV 10.1 12/31/20 08:26: Sodium 142, Potassium 2.8 L, Chloride 108 H, Carbon Dioxide 25.0, Anion Gap 9, BUN 13, Creatinine 0.38 L, Estim Creat Clear Calc 40.83, Est GFR (MDRD) Af Amer 212, Est GFR (MDRD) Non-Af 175, BUN/Creatinine Ratio 34.1 H, Glucose 88, Calcium 8.0 L, Phosphorus 2.0 L, Magnesium 1.6 Micro: Microbiology 12/30/20 08:30 Stool Stool Lactoferrin - Final 12/30/20 08:30 Stool Enteric Bacteriology - Final 12/30/20 08:30 Stool Stool Occult Blood (KANDY) - Final Occult Blood Positive 12/29/20 14:55 Nasal Secretion SARS-CoV-2 Antigen (Rapid) - Final 12/29/20 14:40 Mucosa - Nasopharyngeal Rapid RSV (DFA) - Final Physical Exam GI GI Narrative: abdomen is soft with generalized tenderness but no peritoneal signs Assessment & Plan Assessment/Plan (1) Colitis: PLAN: patient with findings of colitis on endoscopy no surgical pathology at this point in time, I will sign off this case
--- NOTE | 2020-12-31 14:07 | NURSING ---
Assisted patient back into the bed from the chair. Pt moving well with 1 assist and walker. patient had a small amount of mucous from rectum. no stool noted at this time. pericare provided. new purewick placed. Bed exit on.
--- NOTE | 2020-12-31 14:36 | PCM.PN.HOSP ---
Subjective Subjective Patient still has abdominal pain mainly left-sided. There is loose bowel movements. Overall hydration status is better. Objective Data Objective Data Vital Signs: Vital Signs Temp Pulse Resp BP Pulse Ox 98.6 F 93 18 162/95 H 100 12/31/20 09:00 12/31/20 13:11 12/31/20 09:00 12/31/20 11:30 12/31/20 09:00 Oxygen Flow Rate (L/min) 2 Oxygen Delivery Method Nasal Cannula Weight: 124 lb 12.506 oz Body Mass Index (BMI) 21.2 Intake & Output: Intake and Output for Last 24 Hours 12/29/20 12/30/20 12/31/20 23:59 23:59 23:59 Intake Total 1387.5 / 1437.5 / 404 / 404 Output Total 800 / 800 200 / 200 Balance 1387.5 / 1437.5 1186.67 / 1186.67 204 / 204 Lab / Micro Data Result Diagrams: 12/31/20 08:26 12/31/20 08:26 Labs: Laboratory Results - last 24 hr 12/31/20 08:26: WBC 12.3 H, RBC 4.05 L, Hgb 12.1, Hct 37.2, MCV 91.9, MCH 29.9, MCHC 32.5, RDW Std Deviation 42.9, RDW Coeff of Heidi 12.7, Plt Count 173, MPV 10.1 12/31/20 08:26: Sodium 142, Potassium 2.8 L, Chloride 108 H, Carbon Dioxide 25.0, Anion Gap 9, BUN 13, Creatinine 0.38 L, Estim Creat Clear Calc 40.83, Est GFR (MDRD) Af Amer 212, Est GFR (MDRD) Non-Af 175, BUN/Creatinine Ratio 34.1 H, Glucose 88, Calcium 8.0 L, Phosphorus 2.0 L, Magnesium 1.6 Micro: Microbiology 12/30/20 08:30 Stool Stool Lactoferrin - Final 12/30/20 08:30 Stool Enteric Bacteriology - Final 12/30/20 08:30 Stool Stool Occult Blood (KANDY) - Final Occult Blood Positive 12/29/20 14:55 Nasal Secretion SARS-CoV-2 Antigen (Rapid) - Final 12/29/20 14:40 Mucosa - Nasopharyngeal Rapid RSV (DFA) - Final Physical Exam Narrative Physical exam General: Alert, awake and oriented x3. HEENT: Atraumatic, PERRLA, EOMI, Normocephalic Oral: Dry oral mucosa. No Gingival or Mucosal Lesions/ Ulcerations Neck: Supple, No JVD, Negative Carotid Bruits Lungs: Air entry diminished in bilateral lung bases. No crepitation/rhonchi Cardiovascular: Regular rate, Regular Rhythm, Normal S1, Normal S2, No murmurs Abdomen: Moderate tenderness predominantly left lower quadrant slightly better than yesterday. Nondistended. Bowel sounds present. : No renal angle tenderness. No suprapubic tenderness. Extremities: No edema, Capillary Refill Less than 3 Seconds Skin: No rashes, No breakdown Musculoskeletal: No Tenderness to Palpation of Joints or Extremities Neurological: Cranial nerves II-XII grossly intact, DTR 2+/4 and Symmetrical, Neuro grossly intact Psych/Mental Status: Normal Affect, Appropriate. Assessment & Plan Assessment/Plan (1) Colitis: (2) Fall: QUALIFIERS: Encounter type: initial encounter Qualified Code(s): W19.XXXA - Unspecified fall, initial encounter PLAN: This 75-year-old female admitted with fall, severe subacute abdominal pain with lower GI bleed and CT abdomen suggestive of left-sided colitis. 1. Severe abdominal pain with lower GI bleed probably due to left-sided colitis: Patient is being admitted on MedSur with telemetry as there is no PCU beds available and it seems her main respirating factor is abdominal pain/colitis. Started on normal saline 150 mill per hour. On broad-spectrum IV antibiotic Cipro and Flagyl. Discussed with surgeon Dr. Dey and she agrees with the plan. She not had recent antibiotic exposure in last 6-month. 12/30 stool test including occult blood and lactoferrin positive. Enteric bacteriology panel negative.EGD shows mucosal changes suspicious for gastritis with hemorrhage which was biopsied. Unprepped colonoscopy was done and impression is left-sided ischemic colitis which was biopsied. Clear liquid diets. Protonix 40 mg twice daily for 8 weeks. No NSAIDs or aspirin. Dicyclomine 10 mg p.o. 3 times daily 30 minutes prior to meal for 7 days. Follow-up in 2 weeks in GI office. Repeat colonoscopy which will be determined after pathology result of biopsy. Earlier surgeon, Dr. Dey saw the patient who recommended GI consult. 12/31: Continue treatment. Continue antibiotic. Mild improvement in pain. 2. Elevated troponin and elevated CPK probably type II demand ischemia from severe abdominal pain: As mentioned in HPI, patient recently had cardiology evaluation with a stress and echo test. EKG shows sinus tachycardia at 120 bpm with LAD with nonspecific ST-T abnormality similar to EMS EKG. 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 Washington. 12/30: Serial troponin and CK shows downward trends. Patient does not have chest pain although she is mild short of breath because of abdominal pain. Mild hypokalemia. 12/31: Hypokalemia with hypophosphatemia. Magnesium 1.6. Potassium and phosphorus were replaced. 3. Fall with elevated CPK: CK is not in the range of rhabdomyolysis. IV fluid normal saline ordered. 4. Acute encephalopathy probably metabolic/infectious from colitis: Treat the underlying cause. PT OT evaluation. manager trade consult. 5. Other comorbidities include hypertension, mixed dyslipidemia, history of remote syncope about 2 to 3 years ago: It is unclear at this time patient had syncope but patient was found on the floor so there is high suspicion. When the bed is available in PCU patient can be transferred to PCU. VTE prophylaxis: Bilateral SCDs. Pharmacological prophylaxis contraindicated in view of active GI bleed Living will/advanced directive/end of life care: Patient does not have living will or advanced directive. Full code. Total time of the visit including total time spent in counseling or coordination of care, (more than 50% of the total time, spent in obtaining medical information from nurses and other ancillary care providers,explaining to the patient about labs, imaging, diagnosis and management), discussion with surgeon and GI regulatory consultant, review of labs and imaging is 30 minutes. 2D echo October 2019 Interpretation Summary Left ventricular systolic function is normal. The estimated ejection fraction is 70 %. Apical false tendon noted. The left atrium is mildly enlarged. Mild (1+) mitral valve insufficiency. Mild tricuspid valve insufficiency. Mild focal aortic valve calcification. Right ventricular systolic pressure estimated to be 48 mmHg. Transmitral diastolic flow velocities suggest diastolic dysfunction (pseudonormal pattern). Charges/Coding Visit Charges Inpatient E&M: 02268 Subs Hosp L2
--- NOTE | 2020-12-31 14:49 | CASEMGMT ---
Pt screened with [facility] Palliative Care Screening Tool due to strata 3, pt did not meet criteria.
--- NOTE | 2020-12-31 16:19 | EX.PCM.PN.GI ---
Subjective Subjective She underwent upper endoscopy and colonoHer upper endoscopy had shown severe inflammation in the gastric antrum. Biopsies for H. pylori were negative. However they did show signs of ischemia. On colonoscopy she was discovered to have severe ischemic colitis. She is still having a lot of abdominal pain. And she reports that she has been having diarrhea for months as she titrated herself off of oxycodone for chronic pain. Objective Data Objective Data Vital Signs: Vital Signs Temp Pulse Resp BP Pulse Ox 98.4 F 85 18 120/56 L 97 12/31/20 14:35 12/31/20 14:35 12/31/20 14:35 12/31/20 14:35 12/31/20 14:35 Oxygen Flow Rate (L/min) 2 Oxygen Delivery Method Nasal Cannula Weight: 124 lb 12.506 oz Body Mass Index (BMI) 21.2 Intake & Output: Intake and Output for Last 24 Hours 12/29/20 12/30/20 12/31/20 23:59 23:59 23:59 Intake Total 1387.5 / 1437.5 / 504 / 504 Output Total 800 / 800 200 / 200 Balance 1387.5 / 1437.5 1186.67 / 1186.67 304 / 304 Lab / Micro Data Result Diagrams: 12/31/20 08:26 12/31/20 08:26 Labs: Laboratory Results - last 24 hr 12/31/20 08:26: WBC 12.3 H, RBC 4.05 L, Hgb 12.1, Hct 37.2, MCV 91.9, MCH 29.9, MCHC 32.5, RDW Std Deviation 42.9, RDW Coeff of Heidi 12.7, Plt Count 173, MPV 10.1 12/31/20 08:26: Sodium 142, Potassium 2.8 L, Chloride 108 H, Carbon Dioxide 25.0, Anion Gap 9, BUN 13, Creatinine 0.38 L, Estim Creat Clear Calc 40.83, Est GFR (MDRD) Af Amer 212, Est GFR (MDRD) Non-Af 175, BUN/Creatinine Ratio 34.1 H, Glucose 88, Calcium 8.0 L, Phosphorus 2.0 L, Magnesium 1.6 Micro: Microbiology 12/30/20 08:30 Stool Stool Lactoferrin - Final 12/30/20 08:30 Stool Enteric Bacteriology - Final 12/30/20 08:30 Stool Stool Occult Blood (KANDY) - Final Occult Blood Positive 12/29/20 14:55 Nasal Secretion SARS-CoV-2 Antigen (Rapid) - Final 12/29/20 14:40 Mucosa - Nasopharyngeal Rapid RSV (DFA) - Final Physical Exam Const alert General Appearance: cooperative Orientation / Consciousness: oriented to person HEENT hearing grossly normal bilaterally Head and Scalp: normal to inspection Face and Sinus: face symmetric Nose: external nose normal Mouth: oral and palatal mucosa normal Eyes conjunctivae normal General Eye: normal appearance of both eyes Neck full ROM General: normal visual inspection Lymph Lymphatic: no lymphadenopathy noted Chest inspection of chest normal and palpation of chest normal Chest: symmetrical chest wall rise Resp normal respiratory effort Effort and Inspection: able to speak in complete sentences Cardio regular rate GI non-distended Percussion: normal to percussion Rectal Exam: deferred Neuro Speech: speech normal Gait (Neuro): normal gait Assessment & Plan Assessment/Plan (1) Acute ischemic colitis: PLAN: Acute ischemic colitis secondary to syncopal event. The etiology of the syncopal event is not known at this time. Would recommend to continue dicyclomine 4 times a day as a can cut down her cramping which can lead to worsening ischemia and also sometimes help with diarrhea. (2) Diarrhea: PLAN: I suspect that her diarrhea is chronic and not secondary to an infectious colitis. I will start her on cholestyramine (3) Gastritis: PLAN: I will start her on Carafate therapy to hopefully help with pain from the ischemic gastritis
[2020-12-31] MEDS: Lactated Ringers 1,000 ML 100 ML IV (16:32)
[2020-12-31 16:37] LABS: Potassium 3.2 mmol/L (3.5-5.1)
[2020-12-31] MEDS: Cholestyramine/Sucrose 4 GM/PACKET PO (17:59)
[2020-12-31] MEDS: traZODone 100 MG Tablet PO (21:24)
[2021-01-01] VITALS (15 sets, daily range): BP systolic 125–188; BP diastolic 57–99; PULSE 81–108; RESP 15–18; TEMP 36.8–37; O2SAT 94–98
[2021-01-01] MEDS: 0.9% Saline Lock 10 ML Syringe IV ×2 (04:28→14:19)
[2021-01-01] MEDS: hydrALAZINE 20 MG/ML Vial 10 MG IV (04:29)
[2021-01-01] MEDS: metroNIDAZOLE 500 MG/100 ML BAG 100 MG IV ×3 (06:10→21:03)
[2021-01-01] MEDS: Dicyclomine 10 MG Capsule PO ×3 (06:12→15:57)
[2021-01-01] MEDS: Levothyroxine 112 MCG Tablet PO (06:12)
[2021-01-01] MEDS: Cholestyramine/Sucrose 4 GM/PACKET PO ×2 (06:55→15:57)
[2021-01-01 07:18] LABS: Anion Gap 6 (5-15); BUN 6 mg/dL (7-18); BUN/Creat Ratio 12.4 RATIO (10-20); Chloride 110 mmol/L (98-107); Creatinine, Serum 0.48 mg/dL (0.55-1.02); EST Glomerular Filtration Rate 134 mL/min (>60); Est Glom Filt Rate - Afr Amer 162 mL/min (>60); Estimated Creatinine Clearance 40.83 ml/min; Glucose 137 mg/dL (74-106); Magnesium 1.6 mg/dL (1.6-2.6); Potassium 3.1 mmol/L (3.5-5.1); Sodium Level 142 mmol/L (136-145)
[2021-01-01] MEDS: Magnesium Chloride 64 MG Delay Rel.Tablet 128 MG PO ×2 (09:22→23:00)
[2021-01-01] MEDS: Metoprolol Tartrate 25 MG Tablet PO ×2 (09:23→22:55)
[2021-01-01] MEDS: Paroxetine 20 MG Tablet 40 MG PO (09:28)
[2021-01-01] MEDS: Lisinopril 5 MG Tablet PO (09:29)
[2021-01-01] MEDS: Pantoprazole Sodium 40 MG Tablet PO ×2 (09:29→22:56)
[2021-01-01] MEDS: Potassium Chloride Oral Tablet 20 MEQ 40 MEQ PO ×2 (09:30→15:57)
[2021-01-01] MEDS: Ciprofloxacin 400 MG/200 ML BAG 200 MG IV ×2 (09:30→22:50)
[2021-01-01] MEDS: Acetaminophen 325 MG Tablet 650 MG PO (11:08)
--- NOTE | 2021-01-01 13:39 | PCM.PN.HOSP ---
Subjective Subjective Patient is still complaining of pain 8/10 in intensity mainly over the left side. She also has pain over her umbilical region. Patient did not had good stool sample. Micro lab denied 1 stool sample is not adequate for C. difficile. Objective Data Objective Data Vital Signs: Vital Signs Temp Pulse Resp BP Pulse Ox 98.3 F 89 15 125/62 H 98 01/01/21 09:44 01/01/21 11:00 01/01/21 09:44 01/01/21 09:44 01/01/21 09:44 Oxygen Flow Rate (L/min) 2 Oxygen Delivery Method Room Air Weight: 127 lb 13.89 oz Body Mass Index (BMI) 21.2 Intake & Output: Intake and Output for Last 24 Hours 12/30/20 12/31/20 01/01/21 23:59 23:59 23:59 Intake Total 1985.67 / 1985.67 2195.6633 / 2195.6633 1221.67 / 1221.67 Output Total 800 / 800 1100 / 1100 200 / 200 Balance 1186.67 / 1186.67 1095.6633 / 1095.6633 1021.67 / 1021.67 Lab / Micro Data Result Diagrams: 12/31/20 08:26 01/01/21 06:39 Labs: Laboratory Results - last 24 hr 12/31/20 16:03: Potassium 3.2 L 01/01/21 06:39: Sodium 142, Potassium 3.1 L, Chloride 110 H, Carbon Dioxide 26.0, Anion Gap 6, BUN 6 L, Creatinine 0.48 L, Estim Creat Clear Calc 40.83, Est GFR (MDRD) Af Amer 162, Est GFR (MDRD) Non-Af 134, BUN/Creatinine Ratio 12.4, Glucose 137 H, Calcium 8.0 L, Phosphorus 2.0 L, Magnesium 1.6 Micro: Microbiology 12/29/20 18:16 Blood Culture (Wb) - Anticubital Right Blood Culture - Preliminary No growth in 48 hours. 12/29/20 18:13 Blood Culture (Wb) - Anticubital Left Blood Culture - Preliminary No growth in 48 hours. 12/30/20 08:30 Stool Stool Lactoferrin - Final 12/30/20 08:30 Stool Enteric Bacteriology - Final 12/30/20 08:30 Stool Stool Occult Blood (KANDY) - Final Occult Blood Positive 12/29/20 14:55 Nasal Secretion SARS-CoV-2 Antigen (Rapid) - Final 12/29/20 14:40 Mucosa - Nasopharyngeal Rapid RSV (DFA) - Final Physical Exam Narrative Her diarrhea has slowed down. Physical exam General: Alert, awake and oriented x3. HEENT: Atraumatic, PERRLA, EOMI, Normocephalic Oral: Oral mucosa moist no Gingival or Mucosal Lesions/ Ulcerations Neck: Supple, No JVD, Negative Carotid Bruits Lungs: Air entry diminished in bilateral lung bases. No crepitation/rhonchi Cardiovascular: Regular rate, Regular Rhythm, Normal S1, Normal S2, No murmurs Abdomen: Moderate tenderness predominantly left lower quadrant and umbilical region. Nondistended. Bowel sounds present. : No renal angle tenderness. No suprapubic tenderness. Extremities: No edema, Capillary Refill Less than 3 Seconds Skin: No rashes, No breakdown Musculoskeletal: No Tenderness to Palpation of Joints or Extremities Neurological: Cranial nerves II-XII grossly intact, DTR 2+/4 and Symmetrical, Neuro grossly intact Psych/Mental Status: Normal Affect, Appropriate. Assessment & Plan Assessment/Plan (1) Colitis: (2) Fall: QUALIFIERS: Encounter type: initial encounter Qualified Code(s): W19.XXXA - Unspecified fall, initial encounter PLAN: This 75-year-old female admitted with fall, severe subacute abdominal pain with lower GI bleed and CT abdomen suggestive of left-sided colitis. 1. Severe abdominal pain with lower GI bleed probably due to left-sided colitis: Patient is being admitted on MedSur with telemetry as there is no PCU beds available and it seems her main respirating factor is abdominal pain/colitis. Started on normal saline 150 mill per hour. On broad-spectrum IV antibiotic Cipro and Flagyl. Discussed with surgeon Dr. Dey and she agrees with the plan. She not had recent antibiotic exposure in last 6-month. 12/30 stool test including occult blood and lactoferrin positive. Enteric bacteriology panel negative.EGD shows mucosal changes suspicious for gastritis with hemorrhage which was biopsied. Unprepped colonoscopy was done and impression is left-sided ischemic colitis which was biopsied. Clear liquid diets. Protonix 40 mg twice daily for 8 weeks. No NSAIDs or aspirin. Dicyclomine 10 mg p.o. 3 times daily 30 minutes prior to meal for 7 days. Follow-up in 2 weeks in GI office. Repeat colonoscopy which will be determined after pathology result of biopsy. Earlier surgeon, Dr. Dey saw the patient who recommended GI consult. 12/31: Continue treatment. Continue antibiotic. Mild improvement in pain. 01/01: GI follow-up reviewed and shows patient had ischemic gastritis with severe inflammation and ischemic colitis. Carafate and cholestyramine added. Continue dicyclomine. On IV antibiotics for ischemic colitis. Diet advanced to soft diet 2. Elevated troponin and elevated CPK probably type II demand ischemia from severe abdominal pain: As mentioned in HPI, patient recently had cardiology evaluation with a stress and echo test. EKG shows sinus tachycardia at 120 bpm with LAD with nonspecific ST-T abnormality similar to EMS EKG. 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 Washington. 12/30: Serial troponin and CK shows downward trends. Patient does not have chest pain although she is mild short of breath because of abdominal pain. Mild hypokalemia. 12/31: Hypokalemia with hypophosphatemia. Magnesium 1.6. Potassium and phosphorus were replaced. 3. Fall with elevated CPK: CK is not in the range of rhabdomyolysis. IV fluid normal saline ordered. 4. Acute encephalopathy probably metabolic/infectious from colitis: Treat the underlying cause. PT OT evaluation. bridge club manager consult. Acute encephalopathy resolved 5. Other comorbidities include hypertension, mixed dyslipidemia, history of remote syncope about 2 to 3 years ago: It is unclear at this time patient had syncope but patient was found on the floor so there is high suspicion. When the bed is available in PCU patient can be transferred to PCU. VTE prophylaxis: Bilateral SCDs. Pharmacological prophylaxis contraindicated in view of active GI bleed Living will/advanced directive/end of life care: Patient does not have living will or advanced directive. Full code. Total time of the visit including total time spent in counseling or coordination of care, (more than 50% of the total time, spent in obtaining medical information from nurses and other ancillary care providers,explaining to the patient about labs, imaging, diagnosis and management), discussion with surgeon and GI senior management consultant, review of labs and imaging is 30 minutes. 2D echo October 2019 Interpretation Summary Left ventricular systolic function is normal. The estimated ejection fraction is 70 %. Apical false tendon noted. The left atrium is mildly enlarged. Mild (1+) mitral valve insufficiency. Mild tricuspid valve insufficiency. Mild focal aortic valve calcification. Right ventricular systolic pressure estimated to be 48 mmHg. Transmitral diastolic flow velocities suggest diastolic dysfunction (pseudonormal pattern). Charges/Coding Visit Charges Inpatient E&M: 40668 Subs Hosp L2
[2021-01-01] MEDS: Sucralfate 1 GM Tablet PO ×2 (15:57→22:55)
[2021-01-01] MEDS: traZODone 100 MG Tablet PO (22:56)
[2021-01-02] VITALS (14 sets, daily range): BP systolic 136–191; BP diastolic 72–89; PULSE 9–94; RESP 14–18; TEMP 36.2–36.9; O2SAT 92–98
[2021-01-02] MEDS: 0.9% Saline Lock 10 ML Syringe IV ×2 (03:58→22:43)
[2021-01-02] MEDS: hydrALAZINE 20 MG/ML Vial 5 MG IV (03:58)
[2021-01-02] MEDS: Sucralfate 1 GM Tablet PO ×4 (06:15→22:38)
[2021-01-02] MEDS: Cholestyramine/Sucrose 4 GM/PACKET PO ×2 (06:15→16:09)
[2021-01-02] MEDS: Dicyclomine 10 MG Capsule PO ×3 (06:15→16:09)
[2021-01-02] MEDS: Levothyroxine 112 MCG Tablet PO (06:15)
[2021-01-02] MEDS: metroNIDAZOLE 500 MG/100 ML BAG 100 MG IV ×2 (06:16→22:31)
[2021-01-02 06:33] LABS: Anion Gap 5 (5-15); BUN 4 mg/dL (7-18); BUN/Creat Ratio 8.8 RATIO (10-20); Calcium,Total 8.2 mg/dL (8.5-10.1); Chloride 112 mmol/L (98-107); Creatinine, Serum 0.45 mg/dL (0.55-1.02); EST Glomerular Filtration Rate 144 mL/min (>60); Est Glom Filt Rate - Afr Amer 174 mL/min (>60); Estimated Creatinine Clearance 40.83 ml/min; Glucose 119 mg/dL (74-106); Magnesium 1.5 mg/dL (1.6-2.6); Potassium 3.9 mmol/L (3.5-5.1); Sodium Level 140 mmol/L (136-145)
[2021-01-02 06:43] LABS: Phosphorus 2.4 mg/dL (2.5-4.9)
--- NOTE | 2021-01-02 07:48 | EX.PCM.PN.GI ---
Subjective Subjective She states that her abdominal pain is a lot better. She is able to eat a little more. She has gained 7 pounds since being in the hospital. She says she still feels a little weak but she is getting better. She rates her abdominal pain at a 4 out of 10. She states that she is still having loose stools. Objective Data Objective Data Vital Signs: Vital Signs Temp Pulse Resp BP Pulse Ox 98.4 F 84 18 167/85 H 92 01/02/21 03:57 01/02/21 07:15 01/02/21 03:57 01/02/21 03:58 01/02/21 07:16 Oxygen Flow Rate (L/min) 2 Oxygen Delivery Method Room Air Weight: 127 lb 6.835 oz Body Mass Index (BMI) 21.2 Intake & Output: Intake and Output for Last 24 Hours 12/31/20 01/01/21 01/02/21 23:59 23:59 23:59 Intake Total 2195.6633 / 2195.6633 2535.0033 / 2535.0033 Output Total 1100 / 1100 350 / 350 500 / 500 Balance 1095.6633 / 1095.6633 2185.0033 / 2185.0033 -500 / -500 Lab / Micro Data Result Diagrams: 12/31/20 08:26 01/02/21 05:54 Labs: Laboratory Results - last 24 hr 01/02/21 05:54: Sodium 140, Potassium 3.9, Chloride 112 H, Carbon Dioxide 23.0, Anion Gap 5, BUN 4 L, Creatinine 0.45 L, Estim Creat Clear Calc 40.83, Est GFR (MDRD) Af Amer 174, Est GFR (MDRD) Non-Af 144, BUN/Creatinine Ratio 8.8 L, Glucose 119 H, Calcium 8.2 L, Magnesium 1.5 L 01/02/21 05:54: Phosphorus 2.4 L Micro: Microbiology 12/29/20 18:16 Blood Culture (Wb) - Anticubital Right Blood Culture - Preliminary No growth in 48 hours. 12/29/20 18:13 Blood Culture (Wb) - Anticubital Left Blood Culture - Preliminary No growth in 48 hours. 12/30/20 08:30 Stool Stool Lactoferrin - Final 12/30/20 08:30 Stool Enteric Bacteriology - Final 12/30/20 08:30 Stool Stool Occult Blood (KANDY) - Final Occult Blood Positive 12/29/20 14:55 Nasal Secretion SARS-CoV-2 Antigen (Rapid) - Final 12/29/20 14:40 Mucosa - Nasopharyngeal Rapid RSV (DFA) - Final Physical Exam Const alert General Appearance: cooperative Orientation / Consciousness: oriented to person HEENT hearing grossly normal bilaterally Head and Scalp: normal to inspection Face and Sinus: face symmetric Nose: external nose normal Mouth: oral and palatal mucosa normal Eyes conjunctivae normal General Eye: normal appearance of both eyes Neck full ROM General: normal visual inspection Lymph Lymphatic: no lymphadenopathy noted Chest inspection of chest normal and palpation of chest normal Chest: symmetrical chest wall rise Resp normal respiratory effort Effort and Inspection: able to speak in complete sentences Cardio regular rate GI non-distended Percussion: normal to percussion Rectal Exam: deferred Neuro Speech: speech normal Gait (Neuro): normal gait Assessment & Plan Assessment/Plan (1) Gastritis: PLAN: You need to be on Carafate for 1 month as the biopsies for H. pylori were negative. She will need to follow-up in the office in approximately 2 weeks regarding her abdominal pain secondary to gastritis. (2) Diarrhea: PLAN: She will need to go on colestipol to see if he can help her diarrhea. Along with her poor nutrition she tends to lose potassium through her stool. That may need long-term replacement (3) Acute ischemic colitis: PLAN: She will need repeat colonoscopy in approximately 4 to 6 weeks to make sure she is has resolution of ischemic colitis.. (4) Abdominal pain:
[2021-01-02] MEDS: Pantoprazole Sodium 40 MG Tablet PO ×2 (09:10→22:39)
[2021-01-02] MEDS: Potassium Chloride Oral Tablet 20 MEQ 40 MEQ PO ×2 (09:10→17:23)
[2021-01-02] MEDS: Paroxetine 20 MG Tablet 40 MG PO (09:10)
[2021-01-02] MEDS: Lisinopril 5 MG Tablet PO (09:11)
[2021-01-02] MEDS: Metoprolol Tartrate 25 MG Tablet PO ×2 (09:11→22:38)
[2021-01-02] MEDS: Magnesium Chloride 64 MG Delay Rel.Tablet 128 MG PO ×2 (09:17→22:43)
--- NOTE | 2021-01-02 12:45 | CASEMGMT ---
BARNEY VASQUEZ NOTE: Per Dr Sr, he anticipates pt will be ready for discharge home in 1-2 more days. PT/OT notes have been reviewed. Additional therapy is recommended. BARNEY VASQUEZ to room to talk w/pt. Pt states she wishes to return home @ discharge and states she would like [facility]. Pt was provided with list of HHC providers including quality and resource use data and consistent with the patient's preferred geographic region, medical needs, and insurance network. The pt's initially stated she has no preference of C agency. Made aware [facility] has C and she states [facility] as 1st choice. [facility] and VM left re: referral for SN and PT/OT and anticipate d/c in 1-2 days. Awaiting call re: acceptance. Keke CANDELARIO RN, CM
--- NOTE | 2021-01-02 17:06 | PCM.PN.HOSP ---
Subjective Subjective Patient reports improvement in abdominal pain, 4-6/10 intensity. Patient does not have working IV line therefore medline ordered. No fever. Objective Data Objective Data Vital Signs: Vital Signs Temp Pulse Resp BP Pulse Ox 98.2 F 82 16 136/89 H 97 01/02/21 15:09 01/02/21 15:09 01/02/21 15:09 01/02/21 15:09 01/02/21 15:09 Oxygen Flow Rate (L/min) 2 Oxygen Delivery Method Room Air Weight: 127 lb 6.835 oz Body Mass Index (BMI) 21.2 Intake & Output: Intake and Output for Last 24 Hours 12/31/20 01/01/21 01/02/21 23:59 23:59 23:59 Intake Total 2195.6633 / 2195.6633 2535.0033 / 2535.0033 100 / 100 Output Total 1100 / 1100 350 / 350 500 / 500 Balance 1095.6633 / 1095.6633 2185.0033 / 2185.0033 -400 / -400 Lab / Micro Data Result Diagrams: 12/31/20 08:26 01/02/21 05:54 Labs: Laboratory Results - last 24 hr 01/02/21 05:54: Sodium 140, Potassium 3.9, Chloride 112 H, Carbon Dioxide 23.0, Anion Gap 5, BUN 4 L, Creatinine 0.45 L, Estim Creat Clear Calc 40.83, Est GFR (MDRD) Af Amer 174, Est GFR (MDRD) Non-Af 144, BUN/Creatinine Ratio 8.8 L, Glucose 119 H, Calcium 8.2 L, Magnesium 1.5 L 01/02/21 05:54: Phosphorus 2.4 L Micro: Microbiology 12/29/20 18:16 Blood Culture (Wb) - Anticubital Right Blood Culture - Preliminary No growth in 48 hours. 12/29/20 18:13 Blood Culture (Wb) - Anticubital Left Blood Culture - Preliminary No growth in 48 hours. 12/30/20 08:30 Stool Stool Lactoferrin - Final 12/30/20 08:30 Stool Enteric Bacteriology - Final 12/30/20 08:30 Stool Stool Occult Blood (KANDY) - Final Occult Blood Positive 12/29/20 14:55 Nasal Secretion SARS-CoV-2 Antigen (Rapid) - Final 12/29/20 14:40 Mucosa - Nasopharyngeal Rapid RSV (DFA) - Final Physical Exam Narrative Her diarrhea has slowed down. Physical exam General: Alert, awake and oriented x3. HEENT: Atraumatic, PERRLA, EOMI, Normocephalic Oral: Oral mucosa moist no Gingival or Mucosal Lesions/ Ulcerations Neck: Supple, No JVD, Negative Carotid Bruits Lungs: Air entry diminished in bilateral lung bases. No crepitation/rhonchi Cardiovascular: Regular rate, Regular Rhythm, Normal S1, Normal S2, No murmurs Abdomen: Moderate tenderness predominantly left lower quadrant and umbilical region. Nondistended. Bowel sounds present. : No renal angle tenderness. No suprapubic tenderness. Extremities: No edema, Capillary Refill Less than 3 Seconds Skin: No rashes, No breakdown Musculoskeletal: No Tenderness to Palpation of Joints or Extremities Neurological: Cranial nerves II-XII grossly intact, DTR 2+/4 and Symmetrical, Neuro grossly intact Psych/Mental Status: Normal Affect, Appropriate. Assessment & Plan Assessment/Plan (1) Colitis: (2) Fall: QUALIFIERS: Encounter type: initial encounter Qualified Code(s): W19.XXXA - Unspecified fall, initial encounter PLAN: This 75-year-old female admitted with fall, severe subacute abdominal pain with lower GI bleed and CT abdomen suggestive of left-sided colitis. 1. Severe abdominal pain with lower GI bleed probably due to left-sided colitis: Patient is being admitted on MedSur with telemetry as there is no PCU beds available and it seems her main respirating factor is abdominal pain/colitis. Started on normal saline 150 mill per hour. On broad-spectrum IV antibiotic Cipro and Flagyl. Discussed with surgeon Dr. Dey and she agrees with the plan. She not had recent antibiotic exposure in last 6-month. 12/30 stool test including occult blood and lactoferrin positive. Enteric bacteriology panel negative.EGD shows mucosal changes suspicious for gastritis with hemorrhage which was biopsied. Unprepped colonoscopy was done and impression is left-sided ischemic colitis which was biopsied. Clear liquid diets. Protonix 40 mg twice daily for 8 weeks. No NSAIDs or aspirin. Dicyclomine 10 mg p.o. 3 times daily 30 minutes prior to meal for 7 days. Follow-up in 2 weeks in GI office. Repeat colonoscopy which will be determined after pathology result of biopsy. Earlier surgeon, Dr. Dey saw the patient who recommended GI consult. 12/31: Continue treatment. Continue antibiotic. Mild improvement in pain. 01/01: GI follow-up reviewed and shows patient had ischemic gastritis with severe inflammation and ischemic colitis. Carafate and cholestyramine added. Continue dicyclomine. On IV antibiotics for ischemic colitis. Diet advanced to soft diet 01/02: GI follow-up reviewed. Biopsy for H. pylori negative. Need to be on Carafate for 1 month. Colestipol for diarrhea. Anticipate discharge tomorrow when pain is controlled. 2. Elevated troponin and elevated CPK probably type II demand ischemia from severe abdominal pain: As mentioned in HPI, patient recently had cardiology evaluation with a stress and echo test. EKG shows sinus tachycardia at 120 bpm with LAD with nonspecific ST-T abnormality similar to EMS EKG. 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 Washington. 12/30: Serial troponin and CK shows downward trends. Patient does not have chest pain although she is mild short of breath because of abdominal pain. Mild hypokalemia. 12/31: Hypokalemia with hypophosphatemia. Magnesium 1.6. Potassium and phosphorus were replaced. 3. Fall with elevated CPK: CK is not in the range of rhabdomyolysis. IV fluid normal saline ordered. 4. Acute encephalopathy probably metabolic/infectious from colitis: Treat the underlying cause. PT OT evaluation. clinical pharmacy manager consult. Acute encephalopathy resolved 5. Other comorbidities include hypertension, mixed dyslipidemia, history of remote syncope about 2 to 3 years ago: It is unclear at this time patient had syncope but patient was found on the floor so there is high suspicion. When the bed is available in PCU patient can be transferred to PCU. VTE prophylaxis: Bilateral SCDs. Pharmacological prophylaxis contraindicated in view of active GI bleed Living will/advanced directive/end of life care: Patient does not have living will or advanced directive. Full code. Total time of the visit including total time spent in counseling or coordination of care, (more than 50% of the total time, spent in obtaining medical information from nurses and other ancillary care providers,explaining to the patient about labs, imaging, diagnosis and management), discussion with surgeon and GI solutions architect consultant, review of labs and imaging is 30 minutes. Plan: Discharge tomorrow if pain is controlled with follow-up with GI 2D echo October 2019 Interpretation Summary Left ventricular systolic function is normal. The estimated ejection fraction is 70 %. Apical false tendon noted. The left atrium is mildly enlarged. Mild (1+) mitral valve insufficiency. Mild tricuspid valve insufficiency. Mild focal aortic valve calcification. Right ventricular systolic pressure estimated to be 48 mmHg. Transmitral diastolic flow velocities suggest diastolic dysfunction (pseudonormal pattern). Charges/Coding Visit Charges Inpatient E&M: 41440 Subs Hosp L2
[2021-01-02] MEDS: Ciprofloxacin 400 MG/200 ML BAG 200 MG IV (17:22)
[2021-01-02] MEDS: Acetaminophen 325 MG Tablet 650 MG PO (22:31)
[2021-01-02] MEDS: traZODone 100 MG Tablet PO (22:38)
[2021-01-02] MEDS: hydrALAZINE 20 MG/ML Vial 10 MG IV (22:43)
[2021-01-03] VITALS (11 sets, daily range): BP systolic 132–160; BP diastolic 82–88; PULSE 76–99; RESP 16–18; TEMP 36.1–36.7; O2SAT 94–96
[2021-01-03] MEDS: Levothyroxine 112 MCG Tablet PO (06:07)
[2021-01-03] MEDS: Acetaminophen 325 MG Tablet 650 MG PO ×2 (06:07→14:45)
[2021-01-03] MEDS: 0.9% Saline Lock 10 ML Syringe IV (06:07)
[2021-01-03] MEDS: metroNIDAZOLE 500 MG/100 ML BAG 100 MG IV ×3 (06:07→23:06)
[2021-01-03] MEDS: Cholestyramine/Sucrose 4 GM/PACKET PO ×2 (06:08→17:42)
[2021-01-03] MEDS: Dicyclomine 10 MG Capsule PO ×3 (06:08→15:55)
[2021-01-03] MEDS: Sucralfate 1 GM Tablet PO ×4 (06:08→20:23)
[2021-01-03 06:19] LABS: Anion Gap 6 (5-15); BUN 2 mg/dL (7-18); BUN/Creat Ratio 4.2 RATIO (10-20); Calcium,Total 8.3 mg/dL (8.5-10.1); Chloride 111 mmol/L (98-107); Creatinine, Serum 0.48 mg/dL (0.55-1.02); EST Glomerular Filtration Rate 136 mL/min (>60); Est Glom Filt Rate - Afr Amer 164 mL/min (>60); Estimated Creatinine Clearance 40.83 ml/min; Glucose 112 mg/dL (74-106); Magnesium 1.4 mg/dL (1.6-2.6); Phosphorus 2.5 mg/dL (2.5-4.9); Potassium 4.1 mmol/L (3.5-5.1); Sodium Level 140 mmol/L (136-145)
[2021-01-03] MEDS: Potassium Chloride Oral Tablet 20 MEQ 40 MEQ PO (07:38)
[2021-01-03] MEDS: Paroxetine 20 MG Tablet 40 MG PO (10:10)
[2021-01-03] MEDS: Pantoprazole Sodium 40 MG Tablet PO ×2 (10:11→20:23)
[2021-01-03] MEDS: Metoprolol Tartrate 25 MG Tablet PO ×2 (10:12→20:23)
[2021-01-03] MEDS: Lisinopril 5 MG Tablet PO (10:12)
[2021-01-03] MEDS: Ciprofloxacin 400 MG/200 ML BAG 200 MG IV ×2 (10:27→20:33)
--- NOTE | 2021-01-03 11:31 | NURSING ---
This RN observed student give 8am and 10 am po meds.
--- NOTE | 2021-01-03 12:56 | CASEMGMT ---
Addendum entered by Cielo Guerin 01/03/21 14:16: JOSI received call from pt's daughter Lena asking how to get pt to alf and if pt discharges home she will need to fly in from [place] to take care of pt. JOSI asked Lena why she feels pt cannot go home. Lena states her brother Cresencio told her that pt cannot walk. JOSI reviewed PT/OT notes with Lena. Pt walked 50ft stand by assist and 50ft is household distance. Lena states her brother misinformed her then. JOSI informed Lena that [facility] has been arranged for pt and they will begin seeing pt the . JOSI informed Lena that pt is alert and orientated, own person, able to make own decisions. Lena states she is aware of this, also informed Cresencio that pt can make own decisions. SW informed Lena that pt wants to go home and states she thinks she will be safe at home. SW informed Lena that they can request increase in aide hours through [employer] [facility]. JOSI informed Lena that this worker can provide list of SNF that accept pt's insurance for pt to review at home in the event that pt eventually needs SNF. JOSI informed Lena that C and pt's PCP can help facilitate SNF placement from community. Lena states understanding, agreeable to pt returning home with [facility]. JOSI in to speak with pt. Patient was provided a list of SNF providers including quality and resource use data and consistent with the patient?s preferred geographic region, medical needs, and insurance network. Pt again states she prefers to return home, denied wanting to go to a SNF. Pt again states she thinks she will be safe at home. Plan: Home with C Original Note: Social Work Note JOSI updated that pt's son Cresencio is present at [facility], stating they may want to increase pt's aide hours in the home. JOSI in to speak with pt and Cresencio. JOSI introduced self and role at [facility]. JOSI spoke with pt and Cresencio about increasing in aide hours, how that request needs to go through [employer] but this worker could call her and give request. Pt and Cresencio gave this worker permission to call [facility] and let he know pt's daughter Lena will be calling her to likely request increase in aide hours. JOSI did update pt and Cresencio that HHC is arranged through [facility] for RN, PT/OT and start of care is the . Pt and Cresencio states understanding. JOSI did tell pt's son Cresencio that this worker did speak to pt about completing advanced directives and pt refused, didn't even want documents. Cresencio states he and Lena are also working on advanced directives for pt. JOSI placed a call to pt's CM [facility] and left message that pt's daughter Lena will likely be calling her today to potentially request increase in aide services. Plan: Home with C Cielo Guerin MANUFACTURING TEAM LEADER, STEAM SHOVEL ENGINEER
--- NOTE | 2021-01-03 16:09 | CASEMGMT ---
Social Work Note Pt to discharge home tomorrow. JOSI placed a call to Pt's CM [facility] and left message that pt to discharge home tomorrow. JOSI wrote on green sheet to have staff fax discharge paperwork to [facility] ([phone]). Cielo Guerin HEADING AND PRIMING TOOL SETTER, GROUP SALES REPRESENTATIVE
--- NOTE | 2021-01-03 20:12 | PCM.PN.HOSP ---
Subjective Subjective Patient was seen and examined today, she does not state that she is having blood in her stool at this time although she is having frequent bowel movements. Patient stated that her home was not ready to go back to yet due to it being soiled with bloody stools. I talked to her son by phone late this afternoon, he states that it would be better if the patient was discharged tomorrow if possible and I have agreed to keep her in continue present therapy here until that time. Objective Data Objective Data Vital Signs: Vital Signs Temp Pulse Resp BP Pulse Ox 98.1 F 77 16 132/83 H 95 01/03/21 12:24 01/03/21 12:41 01/03/21 12:24 01/03/21 12:24 01/03/21 19:47 Oxygen Flow Rate (L/min) 2 Oxygen Delivery Method Room Air Weight: 57.8 kg Body Mass Index (BMI) 21.2 Intake & Output: Intake and Output for Last 24 Hours 01/01/21 01/02/21 01/03/21 23:59 23:59 23:59 Intake Total 2535.0033 / 2535.0033 400 / 400 400 / 400 Output Total 350 / 350 1050 / 1050 1000 / 1000 Balance 2185.0033 / 2185.0033 -650 / -650 -600 / -600 Lab / Micro Data Result Diagrams: 12/31/20 08:26 01/03/21 05:33 Labs: Laboratory Results - last 24 hr 01/03/21 05:33: Sodium 140, Potassium 4.1, Chloride 111 H, Carbon Dioxide 23.0, Anion Gap 6, BUN 2 L, Creatinine 0.48 L, Estim Creat Clear Calc 40.83, Est GFR (MDRD) Af Amer 164, Est GFR (MDRD) Non-Af 136, BUN/Creatinine Ratio 4.2 L, Glucose 112 H, Calcium 8.3 L, Phosphorus 2.5, Magnesium 1.4 L Micro: Microbiology 12/29/20 18:16 Blood Culture (Wb) - Anticubital Right Blood Culture - Preliminary No growth in 48 hours. 12/29/20 18:13 Blood Culture (Wb) - Anticubital Left Blood Culture - Preliminary No growth in 48 hours. 12/30/20 08:30 Stool Stool Lactoferrin - Final 12/30/20 08:30 Stool Enteric Bacteriology - Final 12/30/20 08:30 Stool Stool Occult Blood (KANDY) - Final Occult Blood Positive 12/29/20 14:55 Nasal Secretion SARS-CoV-2 Antigen (Rapid) - Final 12/29/20 14:40 Mucosa - Nasopharyngeal Rapid RSV (DFA) - Final Physical Exam Const alert, oriented x3, no apparent distress and healthy appearing General Appearance: cooperative, well kempt and well developed Orientation / Consciousness: awake, oriented to person, oriented to place and oriented to time HEENT normocephalic and moist oral mucous membranes Eyes PERRL, EOMs intact bilaterally and conjunctivae normal Neck nuchal rigidity, supple, no JVD, thyroid normal and no carotid bruits General: trachea midline Resp normal respiratory effort and clear to auscultation bilaterally Auscultation: Negative for rales, rhonchi or wheezes Cardio regular rate, regular rhythm, no murmurs, no rub and no gallops GI normal to inspection, nondistended, normoactive bowel sounds, soft to palpation, non-tender and non-distended Extremity no clubbing, cyanosis or edema Skin no rashes or lesions noted General Skin Exam: no breakdown Neuro oriented x3, CN's II-XII intact bilaterally, no focal motor deficits and no sensory deficits noted Sensorium / Orientation: awake and alert Speech: speech normal Psych thought process normal and affect normal Assessment & Plan Assessment/Plan (1) Acute ischemic colitis: PLAN: 1. Acute ischemic colitis left colon-continue present treatment at this time #2 diarrhea-secondary to acute ischemic colitis, continue present treatment #3 gastritis-patient will remain on her present medication Charges/Coding Visit Charges Inpatient E&M: 16793 [facility] Hosp L2
[2021-01-03] MEDS: traZODone 100 MG Tablet PO (20:23)
[2021-01-04 05:56] VITALS: BP 153/88; PULSE 80; RESP 18; TEMP 36.7; O2SAT 93
[2021-01-04] MEDS: metroNIDAZOLE 500 MG/100 ML BAG 100 MG IV (05:58)
[2021-01-04] MEDS: Sucralfate 1 GM Tablet PO ×2 (06:00→11:51)
[2021-01-04] MEDS: Levothyroxine 112 MCG Tablet PO (06:00)
[2021-01-04] MEDS: Dicyclomine 10 MG Capsule PO ×2 (06:00→11:51)
[2021-01-04] MEDS: Cholestyramine/Sucrose 4 GM/PACKET PO (06:47)
[2021-01-04 07:13] VITALS: O2SAT 94
[2021-01-04 08:07] VITALS: BP 139/80; PULSE 94; RESP 18; TEMP 36.8; O2SAT 94
[2021-01-04 08:09] VITALS: PULSE 94
[2021-01-04] MEDS: Lisinopril 5 MG Tablet PO (08:09)
[2021-01-04] MEDS: Pantoprazole Sodium 40 MG Tablet PO (08:09)
[2021-01-04] MEDS: Metoprolol Tartrate 25 MG Tablet PO (08:09)
[2021-01-04] MEDS: Paroxetine 20 MG Tablet 40 MG PO (08:10)
[2021-01-04] MEDS: Acetaminophen 325 MG Tablet 650 MG PO (08:14)
[2021-01-04] MEDS: 0.9% Normal Saline 250 ML IV.SOLN. IV (08:16)
--- NOTE | 2021-01-04 09:36 | PCM.DC ---
Discharge Instructions Diet Discharge Diet: No restrictions Activity Discharge Activity: Return to Normal Activity Weight Bearing Status: Full weight bearing Follow Up Care Test Results: Test results from this visit will be discussed in further detail at your follow-up appointment, if applicable. Discharge Plan Admission Admit Date/Time: 12/29/20 17:45 Primary Reason for Your Visit: colitis Attending Provider: Zana Em Primary Care Provider: Kaela Crane Instructions Patient Instructions: ED Chest Pain, Noncardiac Discharge Orders/Prescriptions Prescriptions: New dicyclomine 10 mg Capsule 10 mg PO TIDAC Qty: 60 RF: 0 cholestyramine (with sugar) 4 gram Powder In Packet 4 g PO BIDAC Qty: 30 RF: 0 sucralfate 1 gram Tablet 1 g PO 1HR_ACHS Qty: 120 RF: 0 Continued oxycodone-acetaminophen 5-325 mg tablet 1 tab PO Q6H PRN (Reason: Pain) RF: 0 lisinopril 5 mg tablet 5 mg PO DAILY RF: 0 cholecalciferol (vitamin D3) 125 mcg (5,000 unit) capsule 125 mcg PO DAILY RF: 0 tizanidine 2 MG tablet 1 - 2 tab PO Q8H PRN (Reason: Muscle Spasm) RF: 0 trazodone 100 MG tablet 100 mg PO QHS RF: 0 gabapentin 300 MG capsule 300 mg PO BIDCM RF: 0 omeprazole 20 MG capsule 40 mg PO DAILY RF: 0 paroxetine HCl 40 MG tablet 40 mg PO DAILY RF: 0 levothyroxine 112 MCG tablet 112 mcg PO DAILY RF: 0 rosuvastatin 10 MG tablet 10 mg PO QHS RF: 0 metoprolol tartrate 25 MG tablet 25 mg PO BID RF: 0 aspirin 81 MG tablet 81 mg PO QHS RF: 0 Referrals / Follow Up: Kaela Crane MD [Primary Care Provider] - Within 2 Weeks Suleiman Taylor DO [STAFF PHYSICIAN] - See Referral Note (in two weeks-call for appointment) Disposition Disposition (needs filled in before D/C Order can be placed): Home, Self Care
[2021-01-04 14:07] VITALS: BP 150/76; PULSE 67; RESP 16; TEMP 36.4; O2SAT 97
--- NOTE | 2021-01-04 15:08 | NURSING ---
Reviewed discharge instructions with patient, son and daughter. daughter had already picked up prescriptions. removed midline. pressure held and dressing applied. no bleeding noted. pt tolerated well.
--- NOTE | 2021-01-04 19:23 | DS.PCM_ITS ---
Providers Date of Admission: 12/29/20 Date of Discharge: 01/04/21 Primary Care Physician: Dr. Kaela Crane MD Consultations 12/30/20 07:44 Consult: Gastroenterology Routine Consulting Provider: Anitha [facility] Reason for Consult: Severe left side colitis with GI Bleed, surgeon recom EMERGENT Consult: No MD Notified: Yes Date Notified: 12/30/20 Time Notified: 07:44 Method of Notification: Verbal Reason For Visit: ABDOMINAL PAIN, FALL, GI BLEED Diagnosis Discharge Diagnosis (1) Acute ischemic colitis: Status: Acute Code(s): K55.039 - Acute (reversible) ischemia of large intestine, extent unspecified Plan: 1. Acute ischemic colitis lymph: #2 diarrhea secondary to acute ischemic colitis #3 gastritis Medications at Discharge Home Medications gabapentin 300 mg PO BIDCM 03/16/17 levothyroxine 112 mcg PO DAILY 03/16/17 metoprolol tartrate 25 mg PO BID 03/16/17 omeprazole 40 mg PO DAILY 03/16/17 paroxetine HCl 40 mg PO DAILY 03/16/17 rosuvastatin 10 mg PO QHS 03/16/17 tizanidine 1 - 2 tab PO Q8H PRN 03/16/17 trazodone 100 mg PO QHS 03/16/17 aspirin 81 mg PO QHS 06/21/17 cholecalciferol (vitamin D3) 125 mcg (5,000 unit) capsule 125 mcg PO DAILY 10/29/20 lisinopril 5 mg tablet 5 mg PO DAILY 10/29/20 oxycodone-acetaminophen 5 mg-325 mg tablet 1 tab PO Q6H PRN 10/29/20 cholestyramine (with sugar) 4 g PO BIDAC #30 ea 01/04/21 dicyclomine 10 mg PO TIDAC #60 cap 01/04/21 sucralfate 1 g PO 1HR_ACHS #120 tab 01/04/21 Hospital Course Operations None Procedures Colonoscopy and EGD Summary of Care Provided Minutes Spent on Discharge: 31 Hospital Course: Patient was seen in the emergency room at [facility] with a chief complaint of diarrhea with blood in it. This has been going on for several days prior to her being seen in the emergency room. Work-up in the emergency room showed her white count to be elevated at 17, hemoglobin was normal, creatinine was slightly elevated, potassium was slightly low at 3.4, total creatinine kinase was 752-she had sustained a fall at home and I think this is what caused the patient's CPK elevation. Patient's troponin was also slightly high but there is no evidence for a non-STEMI or STEMI. Work-up also included a CT of the abdomen pelvis which showed findings suspicious for colitis of the distal transverse colon descending colon and proximal sigmoid colon. There is also possible gastritis noted. Patient was admitted to [place] [id number], she was placed on IV antibiotics and seen in consultation by general surgery and GI. GI performed an EGD and a colonoscopy, on the EGD there was noted to be antral gastritis present, no ulcerations were noted. On the patient's colonoscopy, there was noted to be findings consistent with ischemic colitis. GI did not recommend antibiotics however the patient was kept on antibiotics until her discharge from the hospital. On 01/04/2021, patient was seen and examined: On examination she appeared in good health and spirits, she does not appear to be in any distress. Vital signs as documented. Skin warm and dry and without overt rashes. Neck without JVD, thyroid appears normal, trachea is midline, neck is supple. Lungs clear, normal air movement was noted. Heart exam notable for regular rhythm, normal sounds and absence of murmurs, rubs or gallops. Abdomen unremarkable and without evidence of organomegaly, masses, or abdominal aortic enlargement, bowel sounds are present in all 4 quadrants, no abdominal tenderness was noted. Extremities nonedematous, no cyanosis was noted, no clubbing was noted. Neuro: Cranial nerves II through XII are grossly intact, no focal motor deficits were noted, sensation to light touch and pinprick is intact, motor exam 5/5 throughout. Psych: Patient is alert and oriented x3, she does not appear anxious or depressed, she does not appear agitated. On 01/04/2021, patient was seen and examined and felt to be in stable condition for discharge home. Weight / BMI Weight Weight: 58.1 kg Body Mass Index (BMI) 21.2 ABG / Lab / Microbiology Data Result Diagrams: 12/31/20 08:26 01/03/21 05:33 Microbiology: Microbiology 12/29/20 18:16 Blood Culture (Wb) - Anticubital Right Blood Culture - Final No growth in 5 days. 12/29/20 18:13 Blood Culture (Wb) - Anticubital Left Blood Culture - Final No growth in 5 days. 12/30/20 08:30 Stool Stool Lactoferrin - Final 12/30/20 08:30 Stool Enteric Bacteriology - Final 12/30/20 08:30 Stool Stool Occult Blood (KANDY) - Final Occult Blood Positive 12/29/20 14:55 Nasal Secretion SARS-CoV-2 Antigen (Rapid) - Final 12/29/20 14:40 Mucosa - Nasopharyngeal Rapid RSV (DFA) - Final D/C Instructions Discharge Diet: No restrictions Weight Bearing Status: Full weight bearing Meaningful Use Info Meaningful Use Diagnoses (Choose all that apply): None applicable Discharge Plan Admission Admit Date/Time: 12/29/20 17:45 Primary Reason for Your Visit: colitis Attending Provider: Zana Em Primary Care Provider: Kaela Crane Instructions Patient Instructions: ED Chest Pain, Noncardiac Discharge Orders/Prescriptions Prescriptions: New dicyclomine 10 mg Capsule 10 mg PO TIDAC Qty: 60 RF: 0 cholestyramine (with sugar) 4 gram Powder In Packet 4 g PO BIDAC Qty: 30 RF: 0 sucralfate 1 gram Tablet 1 g PO 1HR_ACHS Qty: 120 RF: 0 Continued oxycodone-acetaminophen 5-325 mg tablet 1 tab PO Q6H PRN (Reason: Pain) RF: 0 lisinopril 5 mg tablet 5 mg PO DAILY RF: 0 cholecalciferol (vitamin D3) 125 mcg (5,000 unit) capsule 125 mcg PO DAILY RF: 0 tizanidine 2 MG tablet 1 - 2 tab PO Q8H PRN (Reason: Muscle Spasm) RF: 0 trazodone 100 MG tablet 100 mg PO QHS RF: 0 gabapentin 300 MG capsule 300 mg PO BIDCM RF: 0 omeprazole 20 MG capsule 40 mg PO DAILY RF: 0 paroxetine HCl 40 MG tablet 40 mg PO DAILY RF: 0 levothyroxine 112 MCG tablet 112 mcg PO DAILY RF: 0 rosuvastatin 10 MG tablet 10 mg PO QHS RF: 0 metoprolol tartrate 25 MG tablet 25 mg PO BID RF: 0 aspirin 81 MG tablet 81 mg PO QHS RF: 0 Referrals / Follow Up: Kaela Crane MD [Primary Care Provider] - Within 2 Weeks Friend,Suleiman, DO [STAFF PHYSICIAN] - See Referral Note (in two weeks-call for appointment) Disposition Disposition (needs filled in before D/C Order can be placed): Home, Self Care Charges/Coding Visit Charges Inpatient E&M: 42868 Disch Hosp
--- NOTE | 2021-01-06 18:14 | CASEMGMT ---
BARNEY VASQUEZ Discharge Follow-up Phone Call: CEDRIC: Antonia Strata: 3 Call Date: 01/06/21 Discharge Date: 01/04/21 Time of Call: 1809 Admitting Diagnosis: colitis This BARNEY VASQUEZ contacted pt via phone for discharge follow-up. Pt states she has been doing well since discharge and was excited to say she has been eating. Pt states her daughter has been preparing her meals that she can eat. Pt states she received her medications and is taking them as prescribed. Pt states she has heard from the [facility] and they have set up a time to visit tomorrow. Pt states she has scheduled an appointment with Dr. Taylor but not yet with her PCP. Pt denies any questions or concerns at this time. Young Gordon RN CM
== END 2021-01-04 15:11 | disposition home or self-care (01) | DRG 393 ==
LOC: ED 17:49 → MS3 17:56
PROVIDERS: Family Medicine; Internal Medicine Gastroenterology; Admitting Provider Internal Medicine; Emergency Provider Emergency Medicine; PCP Family Medicine; Visit Provider Internal Medicine
PROC: 0DJD8ZZ Inspection of Lower Intestinal Tract, Via Natural or Artificial Opening Endoscopic (ICD-10-PCS; CPT 45378; principal; 2020-12-30 13:55)
DX: K55.039 Acute (reversible) ischemia of large intestine, extent unspecified (principal); G93.41 Metabolic encephalopathy; K29.01 Acute gastritis with bleeding; I24.8 Other forms of acute ischemic heart disease; K55.9 Vascular disorder of intestine, unspecified; I10 Essential (primary) hypertension; E78.2 Mixed hyperlipidemia; Z66 Do not resuscitate; W19.XXXA Unspecified fall, initial encounter; F03.90 Unspecified dementia, unspecified severity, without behavioral disturbance, psychotic disturbance, mood disturbance, and anxiety; Z60.2 Problems related to living alone; E03.9 Hypothyroidism, unspecified; E05.00 Thyrotoxicosis with diffuse goiter without thyrotoxic crisis or storm; F32.9 Major depressive disorder, single episode, unspecified; F41.9 Anxiety disorder, unspecified; Z86.73 Personal history of transient ischemic attack (TIA), and cerebral infarction without residual deficits; K21.9 Gastro-esophageal reflux disease without esophagitis; F17.210 Nicotine dependence, cigarettes, uncomplicated; Y92.009 Unspecified place in unspecified non-institutional (private) residence as the place of occurrence of the external cause; Z79.82 Long term (current) use of aspirin; Z79.890 Hormone replacement therapy; Z80.0 Family history of malignant neoplasm of digestive organs; Z88.0 Allergy status to penicillin; Z88.2 Allergy status to sulfonamides; Z90.49 Acquired absence of other specified parts of digestive tract; Z90.710 Acquired absence of both cervix and uterus; Z91.041 Radiographic dye allergy status; Z98.41 Cataract extraction status, right eye; Z98.42 Cataract extraction status, left eye
CPT/HCPCS: 36415; 70450; 72125; 74176; 80048; 80053; 81001; 82274; 82550; 83605; 83630; 83735; 84100; 84132; 84443; 84484; 85025; 85027; 87040; 87426; 87506; 87807; 88305; 88342; 93005; 97110; 97162; 97166; 97530; 97535; 97802; 99251; 99285; J7030; J7040; J7050; J7120; A4216; G0463; J0744

== ENCOUNTER 2021-01-27 09:41 | Emergency (ER) | payer MEDICARE, MEDICAID, SELFPAY ==
[2021-01-27 09:49] VITALS: BP 210/94; PULSE 57; RESP 17; TEMP 36.8; O2SAT 96; BMI 23.3
--- NOTE | 2021-01-27 09:54 | EX.ED.DYSGE1 ---
HPI History of Present Illness Chief Complaint: Hypertension Narrative Narrative: Patient presents with chief complaint of hypertension, she is otherwise asymptomatic. She was discharged from the hospital recently she was found to have ischemic colitis, since then she has quit smoking, she thinks there may be a medicine change but she has not gone to the pharmacy to do any kind of changes. She is on lisinopril 5 mg and metoprolol 25 mg. She has no chest pain or shortness of breath no fever chills no vision changes. [facility] Medical History Abnormal EKG Acute ischemic colitis Anxiety Arthritis Colitis Dementia Depression Diarrhea Difficulty swallowing Elevated troponin Essential hypertension Fall Gastritis GERD (gastroesophageal reflux disease) Graves disease Hemorrhoid Hx TIA/stroke w/o resid Hypothyroidism Mixed hyperlipidemia Rhabdomyolysis Smoker Syncope Home Medications gabapentin 300 mg PO BIDCM 03/16/17 [History Last Taken 12/27/20] levothyroxine 112 mcg PO DAILY 03/16/17 [History Last Taken 12/27/20] metoprolol tartrate 25 mg PO BID 03/16/17 [History Last Taken 12/27/20] omeprazole 40 mg PO DAILY 03/16/17 [History Last Taken 12/27/20] paroxetine HCl 40 mg PO DAILY 03/16/17 [History Last Taken 12/27/20] rosuvastatin 10 mg PO QHS 03/16/17 [History Last Taken 12/27/20] tizanidine 1 - 2 tab PO Q8H PRN 03/16/17 [History Last Taken Unknown] trazodone 100 mg PO QHS 03/16/17 [History Last Taken 12/27/20] aspirin 81 mg PO QHS 06/21/17 [History Last Taken 12/27/20] cholecalciferol (vitamin D3) 125 mcg (5,000 unit) capsule 125 mcg PO DAILY 10/29/20 [History Last Taken 12/27/20] lisinopril 5 mg tablet 5 mg PO DAILY 10/29/20 [History Last Taken 12/27/20] oxycodone-acetaminophen 5 mg-325 mg tablet 1 tab PO Q6H PRN 10/29/20 [History Last Taken Unknown] cholestyramine (with sugar) 4 g PO BIDAC #30 ea 01/04/21 [Rx Last Taken Unknown] dicyclomine 10 mg PO TIDAC #60 cap 01/04/21 [Rx Last Taken Unknown] sucralfate 1 g PO 1HR_ACHS #120 tab 01/04/21 [Rx Last Taken Unknown] colestipol 1 gram tablet 1 g PO BID 60 Days #120 tab 01/09/21 [Rx Last Taken Unknown] lisinopril 10 mg PO DAILY #30 tab 01/27/21 [Rx Last Taken Unknown] Allergy/AdvReac Type Severity Reaction Status Date / Time iodine Allergy Severe Other Verified 01/09/21 10:57 NSAIDS (Non-Steroidal Allergy Anaphylaxis Verified 01/09/21 10:57 Anti-Inflamma Penicillins Allergy Hives Verified 01/09/21 10:57 Sulfa (Sulfonamide Allergy Unknown Verified 01/09/21 10:57 Antibiotics) Family History Mother Esophageal cancer Hypertension CVA (cerebral vascular accident) Cardiac arrhythmia Surgical History History of appendectomy History of bilateral cataract extraction History of bunionectomy of both great toes Hx of cholecystectomy Hx of eye surgery S/P carpal tunnel release S/P total abdominal hysterectomy and bilateral salpingo-oophorectomy Social History Smoking Status: Current every day smoker tobacco type: cigarettes second hand exposure: Yes alcohol intake: never substance use type: does not use caffeine: Yes Type: coffee Number of servings: 1 what type of physical activity do you participate in: none frequency: does not exercise seatbelt use: always ROS ROS ED ROS Narrative Past medical history: Reviewed Medications: Reviewed Social history: Noncontributory Review of systems: All systems negative except as indicated General: No fever Eyes: No visual changes ENT: No upper airway congestion, normal voice Neck: No neck pain Cardiovascular: No chest pain Respiratory: No shortness of breath or cough Gastrointestinal: No abdominal pain, nausea vomiting or diarrhea Genitourinary: No dysuria Musculoskeletal: Denies myalgias no difficulty with ambulation Skin: No rash Neurological: No memory loss, confusion or any focal weakness Psych: No recent behavioral changes Hematologic: No easy bleeding or easy bruising EXAM Physical Exam Narrative Exam Narrative: Physical exam General: Patient appears comfortable in bed. She does not appear in any distress. She appears chronically ill but not acutely ill. Head: Normocephalic, Atraumatic Eyes: Conjunctiva not pale ENT: Moist mucous membranes Neck: Supple, Nontender, No lymphadenopathy Cardiovascular: Regular rate, Regular rhythm Respiratory: No distress, coarse bilateral breath sounds. She speaks in full sentences. Abdomen: Soft, Nontender, Nondistended Back: Nontender, Normal Inspection. Negative for: CVA tenderness Extremities: Nontender, No edema Skin: Normal color, No rash Neurological: Alert, Normal Strength, Normal Sensation Psychological: Normal affect Const Vital Signs: 01/27/21 09:49 01/27/21 09:53 01/27/21 10:50 Temperature 98.3 F Temperature Source Oral Pulse Rate 57 L Respiratory Rate 17 Respiratory Effort Normal Non-Labored Respiratory Pattern Normal Blood Pressure 210/94 H 194/100 H Blood Pressure Mean 132 131 Pulse Ox 96 Oxygen Delivery Method Room Air 01/27/21 11:36 Temperature Temperature Source Pulse Rate Respiratory Rate Respiratory Effort Respiratory Pattern Blood Pressure 177/97 H Blood Pressure Mean 123 Pulse Ox Oxygen Delivery Method MDM MDM MDM Narrative Medical decision making narrative: Patient has a normal work-up, she was given an extra dose of lisinopril and her pressure significantly improved. I will discharge her with lisinopril, I will change her lisinopril from 5 mg to 10 mg daily. She can follow-up with her PCP. I will fill her prescription and our pharmacy today. Lab Data Labs: Laboratory Results - last 24 hr 01/27/21 01/27/21 10:20 10:20 WBC 7.1 RBC 4.43 Hgb 13.1 Hct 41.0 MCV 92.6 MCH 29.6 MCHC 32.0 RDW Std Deviation 43.8 RDW Coeff of Heidi 12.8 Plt Count 248 MPV 9.9 Immature Gran % (Auto) 0.300 Neut % (Auto) 68.1 Lymph % (Auto) 23.1 [place] % (Auto) 6.2 Eos % (Auto) 1.6 Baso % (Auto) 0.7 Absolute Neuts (auto) 4.8 Absolute Lymphs (auto) 1.63 Nucleated RBC % 0 Sodium 140 Potassium 3.9 Chloride 102 Carbon Dioxide 32.0 Anion Gap 6 BUN 8 Creatinine 0.73 Estim Creat Clear Calc 40.83 Est GFR (MDRD) Af Amer 100 Est GFR (MDRD) Non-Af 83 BUN/Creatinine Ratio 10.9 Glucose 102 Calcium 9.0 Total Bilirubin 0.40 AST 15 ALT 13 Alkaline Phosphatase 91 Total Protein 7.1 Albumin 3.3 Globulin 3.8 Albumin/Globulin Ratio 0.9 Discharge Plan Triage Chief Complaint: Hypertension ED Provider: Doug Palomo Dx/Rx/DC Orders Clinical Impression: Essential hypertension Instructions: Controlling High Blood Pressure, Blood Pressure Check Steps Prescriptions: New lisinopril 10 mg tablet 10 mg PO DAILY Qty: 30 RF: 0 No Action oxycodone-acetaminophen 5-325 mg tablet 1 tab PO Q6H PRN (Reason: Pain) RF: 0 lisinopril 5 mg tablet 5 mg PO DAILY RF: 0 cholecalciferol (vitamin D3) 125 mcg (5,000 unit) capsule 125 mcg PO DAILY RF: 0 colestipol 1 gram tablet 1 g PO BID 60 Days Qty: 120 RF: 1 tizanidine 2 MG tablet 1 - 2 tab PO Q8H PRN (Reason: Muscle Spasm) RF: 0 trazodone 100 MG tablet 100 mg PO QHS RF: 0 gabapentin 300 MG capsule 300 mg PO BIDCM RF: 0 omeprazole 20 MG capsule 40 mg PO DAILY RF: 0 paroxetine HCl 40 MG tablet 40 mg PO DAILY RF: 0 levothyroxine 112 MCG tablet 112 mcg PO DAILY RF: 0 rosuvastatin 10 MG tablet 10 mg PO QHS RF: 0 metoprolol tartrate 25 MG tablet 25 mg PO BID RF: 0 aspirin 81 MG tablet 81 mg PO QHS RF: 0 dicyclomine 10 mg Capsule 10 mg PO TIDAC Qty: 60 RF: 0 cholestyramine (with sugar) 4 gram Powder In Packet 4 g PO BIDAC Qty: 30 RF: 0 sucralfate 1 gram Tablet 1 g PO 1HR_ACHS Qty: 120 RF: 0 Primary Care Provider: Kaela Crane Referrals: Kaela Crane MD [Primary Care Provider] - 2 Days Disposition Disposition: Home, Self Care
[2021-01-27 10:28] LABS: Absolute Lymphocyte Count 1.63 X10^3/uL (0.83-4.51); Absolute Neutrophil Count 4.8 X10^3/uL (2.0-7.7); Basophil# 0.05 X10^3/uL; Basophil% 0.7 % (0-1); Eosinophil# 0.11 X10^3/uL; Eosinophils% 1.6 % (0-5); Hemoglobin 13.1 g/dL (12.0-15.0); Lymphocyte # 1.63 X10^3/ul (0.83-4.51); Lymphocyte % 23.1 % (19-41); Mean Corpuscular Hgb 29.6 pg (27.0-32.0); Mean Corpuscular Volume 92.6 fL (81-99); Mean Platelet Vol. 9.9 fl (6.2-12.0); Monocyte# 0.44 X10^3/uL; Monocyte% 6.2 % (0-10); NRBC Flagged by Analyzer 0 % (0-5); Neutrophil # 4.81 X10^3/uL (2.7-7.7); Neutrophil % 68.1 % (47-70); Platelet Count 248 K/mm3 (150-450); RBC Distribution Width CV 12.8 % (11.6-14.6); RBC Distribution Width SD 43.8 fl (35.1-43.9); Red Blood Count 4.43 M/mm3 (4.2-5.4); White Blood Count 7.1 K/mm3 (4.4-11.0)
[2021-01-27 10:44] LABS: ALB/GLOB Ratio 0.9 RATIO (0.9-2.4); AST(SGOT) 15 U/L (15-37); Alanine Aminotransfer ALT/SGPT 13 U/L (13-56); Albumin, Serum 3.3 g/dL (3.2-5.0); Alkaline Phosphatase 91 U/L (45-117); Anion Gap 6 (5-15); BUN 8 mg/dL (7-18); BUN/Creat Ratio 10.9 RATIO (10-20); Chloride 102 mmol/L (98-107); Creatinine, Serum 0.73 mg/dL (0.55-1.02); EST Glomerular Filtration Rate 83 mL/min (>60); Est Glom Filt Rate - Afr Amer 100 mL/min (>60); Estimated Creatinine Clearance 40.83 ml/min; Globulin 3.8 g/dL (2.2-4.2); Glucose 102 mg/dL (74-106); Potassium 3.9 mmol/L (3.5-5.1); Protein, Total 7.1 g/dL (6.4-8.2); Sodium Level 140 mmol/L (136-145)
[2021-01-27 10:50] VITALS: BP 194/100
[2021-01-27] MEDS: Lisinopril 5 MG Tablet PO (10:54)
[2021-01-27 11:36] VITALS: BP 177/97
[2021-01-27 12:22] VITALS: BP 187/87; PULSE 54; RESP 18; O2SAT 98
--- NOTE | 2021-01-27 14:10 | ED.RN ---
hospital van to transport patient home. stud driver aggressed to take patient through the pharmacy drive through. ioana hensley rn [id number]
== END 2021-01-27 14:10 | disposition home or self-care (01) ==
PROVIDERS: Emergency Provider Emergency Medicine; PCP Family Medicine
DX: I10 Essential (primary) hypertension (principal); E03.9 Hypothyroidism, unspecified; E05.00 Thyrotoxicosis with diffuse goiter without thyrotoxic crisis or storm; E78.2 Mixed hyperlipidemia; F03.90 Unspecified dementia, unspecified severity, without behavioral disturbance, psychotic disturbance, mood disturbance, and anxiety; F32.A Depression, unspecified; F41.9 Anxiety disorder, unspecified; K21.9 Gastro-esophageal reflux disease without esophagitis; F32.9 Major depressive disorder, single episode, unspecified; M19.90 Unspecified osteoarthritis, unspecified site; M62.82 Rhabdomyolysis; F17.210 Nicotine dependence, cigarettes, uncomplicated; Z79.1 Long term (current) use of non-steroidal anti-inflammatories (NSAID); Z79.82 Long term (current) use of aspirin; Z86.73 Personal history of transient ischemic attack (TIA), and cerebral infarction without residual deficits
CPT/HCPCS: 80053; 85025; 99285; A4216

== ENCOUNTER 2021-02-27 10:50 | Outpatient (RCR) | payer MEDICARE, MEDICAID, SELFPAY | END 2021-03-18 18:00 | disposition home or self-care (01) | LOC: HHLAB 10:50 | PROVIDERS: PCP Family Medicine; Visit Provider Family Medicine | DX: E03.9 Hypothyroidism, unspecified (principal) | CPT/HCPCS: 84443 ==

== ENCOUNTER 2021-05-26 15:08 | Observation (INO) | payer MEDICARE, MEDICAID, SELFPAY ==
[2021-05-26] VITALS (11 sets, daily range): BP systolic 94–151; BP diastolic 53–88; PULSE 56–79; RESP 12–19; TEMP 36.5–36.6; O2SAT 85–100; BMI 22.1; BMI 23.0
--- NOTE | 2021-05-26 15:48 | EKG12_ITS ---
Test Reason : CP Blood Pressure : / mmHG Vent. Rate : 069 BPM Atrial Rate : 069 BPM P-R Int : 130 ms QRS Dur : 084 ms QT Int : 438 ms P-R-T Axes : 048 -72 051 degrees QTc Int : 469 ms Undetermined rhythm : Consider Atrial Fibrillation Left axis deviation Low voltage QRS (Limb Leads) Poor R wave progression Abnormal ECG Confirmed by CELINA LANE, ESTELITA ([id number]), development editor MOE HASSAN ([id number]) on 05/27/2021 11:36:19 AM Referred By: CHRIS/STEPHEN Confirmed By:ESTELITA PATRICK MD
--- NOTE | 2021-05-26 16:00 | RAD_ITS ---
STUDY: X-RAY CHEST REASON FOR EXAM: Female, 75 years old. chest pain TECHNIQUE: Single AP portable view of the chest. COMPARISON: None. FINDINGS: There is hyperinflation of the lungs consistent with chronic obstructive lung disease (COPD). There is no demonstrated pleural abnormality. Normal size heart. Normal mediastinum and rolf. Normal visualized pulmonary arteries. Normal visualized aortic arch and descending thoracic aorta. Normal visualized thoracic spine. Normal visualized ribs, clavicles, and shoulders. There is no demonstrated abnormality of the visualized soft tissue structures of the upper abdomen. RAD/Chest 1 View (Portable) IMPRESSION: Emphysema without pneumonia or atelectasis. Electronically Signed: Regan Yan MD at 16:25 EST ,
--- NOTE | 2021-05-26 16:50 | EDS_ITS ---
HPI History of Present Illness Chief Complaint: Chest Pain Informant: patient Narrative Narrative: 71-year-old female who lives alone notes that for the previous 6 days she has had myalgias subjective fever cough weakness rhinorrhea headaches. She states right now she feels pretty good but she is generally weak. She states that she hasn't been eating because she has been too weak to get out of bed. She states her blood pressures are usually around 140 but today were lower than that. She notes that she has only urinated 1 time today. She has a history of hypertension treated with amlodipine, carvedilol, lisinopril. [facility] Medical History Abnormal EKG Acute ischemic colitis Anxiety Arthritis Colitis Dementia Depression Diarrhea Difficulty swallowing Elevated troponin Essential hypertension Fall Gastritis GERD (gastroesophageal reflux disease) Graves disease Hemorrhoid Hx TIA/stroke w/o resid Hypothyroidism Ischemic colitis Mixed hyperlipidemia Rhabdomyolysis Smoker Syncope Home Medications gabapentin 300 mg PO BIDCM 03/16/17 [History Last Taken 12/27/20] levothyroxine 112 mcg PO DAILY 03/16/17 [History Last Taken 12/27/20] omeprazole 40 mg PO DAILY 03/16/17 [History Last Taken 12/27/20] paroxetine HCl 40 mg PO DAILY 03/16/17 [History Last Taken 12/27/20] rosuvastatin 10 mg PO QHS 03/16/17 [History Last Taken 12/27/20] tizanidine 1 - 2 tab PO Q8H PRN 03/16/17 [History Last Taken Unknown] trazodone 100 mg PO QHS 03/16/17 [History Last Taken 12/27/20] aspirin 81 mg PO QHS 06/21/17 [History Last Taken 12/27/20] cholecalciferol (vitamin D3) 125 mcg (5,000 unit) capsule 125 mcg PO DAILY 10/29/20 [History Last Taken 12/27/20] oxycodone-acetaminophen 5 mg-325 mg tablet 1 tab PO Q6H PRN 10/29/20 [History Last Taken Unknown] cholestyramine (with sugar) 4 g PO BIDAC #30 ea 01/04/21 [Rx Last Taken Unknown] sucralfate 1 g PO 1HR_ACHS #120 tab 01/04/21 [Rx Last Taken Unknown] dicyclomine 10 mg capsule 10 mg PO BID #60 cap 02/11/21 [Rx Last Taken Unknown] lisinopril 40 mg tablet 40 mg PO DAILY #90 tab 02/13/21 [Rx Last Taken Unknown] colestipol 1 gram tablet See Rx Instructions .ROUTE .COMPLEX #120 tab 03/03/21 [Rx Last Taken Unknown] amlodipine 10 mg tablet 10 mg PO DAILY 03/21/21 [History Last Taken Unknown] carvedilol 6.25 mg tablet 6.25 mg PO BID #180 tab 04/03/21 [Rx Last Taken Unknown] Allergy/AdvReac Type Severity Reaction Status Date / Time iodine Allergy Severe Anaphylaxis Verified 05/26/21 20:26 NSAIDS (Non-Steroidal Allergy Anaphylaxis Verified 05/26/21 15:09 Anti-Inflamma Penicillins Allergy Hives Verified 05/26/21 15:09 Sulfa (Sulfonamide Allergy Unknown Verified 05/26/21 15:09 Antibiotics) Family History Mother Esophageal cancer Hypertension CVA (cerebral vascular accident) Cardiac arrhythmia Surgical History History of appendectomy History of bilateral cataract extraction History of bunionectomy of both great toes Hx of cholecystectomy Hx of eye surgery S/P carpal tunnel release S/P total abdominal hysterectomy and bilateral salpingo-oophorectomy Social History Smoking Status: Former smoker second hand exposure: Yes alcohol intake: never substance use type: does not use caffeine: Yes Type: coffee Number of servings: 1 what type of physical activity do you participate in: none frequency: does not exercise seatbelt use: always ROS ROS ED Constitutional Constitutional ED: Reports chills, fever(s), subjective and sweats; Denies weight loss Eyes Eyes: Denies change in vision or diplopia ENT ENT ED: Denies ear pain, rhinorrhea or sore throat Cardiovascular Cardiovascular: Reports chest pain; Denies orthopnea, palpitations or racing heartbeat Respiratory/Chest Respiratory/Chest: Reports cough, dyspnea and sputum; Denies orthopnea Gastrointestinal Gastrointestinal: Reports abdominal pain; Denies diarrhea, nausea or vomiting Genitourinary Genitourinary ED: Reports other Details: Decreased urination ; Denies dysuria, hematuria or urinary frequency Musculoskeletal Musculoskeletal: Reports arthralgias and myalgias Integumentary Denies abscess or rash Neurologic Neurologic: Denies headache(s) or weakness Psychiatric Psychiatric: Denies anxiety, depression, suicidal ideation or suicidal thoughts Endocrine Endocrinology: Denies polydipsia, polyphagia or polyuria Allergic/Immunologic Allergic/Immunologic ED: Denies mouth swelling, tongue swelling or urticaria EXAM Physical Exam Narrative Exam Narrative: Patient appears very fatigued Const Vital Signs: 05/26/21 15:09 05/26/21 16:04 05/26/21 16:46 Temperature 97.9 F Temperature Source Oral Pulse Rate 65 Respiratory Rate 16 Blood Pressure 100/61 Blood Pressure Mean 74 Pulse Ox 95 95 Oxygen Delivery Method Room Air Room Air Room Air Oxygen Flow Rate (L/min) 05/26/21 16:47 05/26/21 18:30 05/26/21 18:31 Temperature Temperature Source Pulse Rate 69 56 L Respiratory Rate 18 12 Blood Pressure 94/65 151/59 H Blood Pressure Mean 74 89 Pulse Ox 98 97 97 Oxygen Delivery Method Room Air Nasal Cannula Nasal Cannula Oxygen Flow Rate (L/min) 2 2 05/26/21 19:10 05/26/21 20:03 05/26/21 21:06 Temperature Temperature Source Pulse Rate 62 73 79 Respiratory Rate 18 19 H 18 Blood Pressure 146/88 H 123/71 H 126/70 H Blood Pressure Mean 107 88 88 Pulse Ox 100 95 92 Oxygen Delivery Method Nasal Cannula Nasal Cannula Room Air Oxygen Flow Rate (L/min) 2 2 05/26/21 21:12 Temperature Temperature Source Pulse Rate Respiratory Rate Blood Pressure Blood Pressure Mean Pulse Ox 85 Oxygen Delivery Method Room Air Oxygen Flow Rate (L/min) Positive well nourished and well developed General Appearance ED: well developed HEENT Reports normocephalic, head/scalp atraumatic, TM's clear and dry mucous membranes Negative for trauma Tympanic Membrane ED: Yes TM's clear Mouth ED: Yes dry mucous membranes Mouth: dry mucous membranes Eyes PERRL and EOMs intact bilaterally Neck no lymphadenopathy, supple and no JVD Resp normal respiratory effort and clear to auscultation bilaterally Cardio regular rate, regular rhythm and no murmurs GI normal to inspection, nondistended, normoactive bowel sounds and non-tender Palpation: soft Back/Spine no CVA tenderness and normal ROM Extremity normal to inspection General Extremety ED: Negative for edema General Extremity: Negative for edema Neuro oriented x3 and CN's II-XII intact bilaterally Sensorium / Orientation: alert Motor Exam: strength 5/5 throughout Psych mental status grossly normal Mood & Affect: Negative for depressed or tearful Skin no rashes or lesions noted and no wounds MDM MDM MDM Narrative Medical decision making narrative: Basic blood work obtained which shows a leukopenia at 3.5. D-dimer elevated 1.17. Troponin at 7. BUN is 16 with a creatinine 0.97. Lactic acid is normal at 1. CTA of the chest is negative for PE. My interpretation of the chest x-ray is no acute process. The patient's blood pressure was consistently in the mid 80s to low 90s. With IV fluids this has significantly improved. She was noted to become hypoxic at 85% with a good waveform. She was placed on supplemental oxygen. Patient continues to be fatigued. She lives alone and given her age concerned about her safety tonight. It is reasonable to bring her into the hospital supplemental oxygen continued hydration and assess need for possible rehab/placement. Lab Data Attestation: I reviewed the patient's lab results. Labs: Laboratory Results - last 24 hr 05/26/21 05/26/21 05/26/21 17:00 17:00 17:00 WBC 3.5 L RBC 3.93 L Hgb 11.8 L Hct 35.3 L MCV 89.8 MCH 30.0 MCHC 33.4 RDW Std Deviation 40.1 RDW Coeff of Heidi 12.2 Plt Count 157 MPV 10.5 Immature Gran % (Auto) 0.300 Neut % (Auto) 57.6 Lymph % (Auto) 30.9 [place] % (Auto) 10.0 Eos % (Auto) 0.6 Baso % (Auto) 0.6 Absolute Neuts (auto) 2.0 Absolute Lymphs (auto) 1.08 Nucleated RBC % 0 D-Dimer Quant (PE/DVT) 1.17 H* Sodium 138 Potassium 3.5 Chloride 104 Carbon Dioxide 28.0 Anion Gap 6 BUN 16 Creatinine 0.97 Estim Creat Clear Calc 42.09 Est GFR (MDRD) Af Amer 72 Est GFR (MDRD) Non-Af 60 BUN/Creatinine Ratio 16.5 Glucose 102 Lactic Acid Calcium 8.0 L Total Bilirubin 0.30 AST 19 ALT 16 Alkaline Phosphatase 83 Troponin I High Sens 7 B-Natriuretic Peptide Total Protein 7.2 Albumin 3.5 Globulin 3.7 Albumin/Globulin Ratio 0.9 05/26/21 05/26/21 05/26/21 17:00 17:00 18:55 WBC RBC Hgb Hct MCV MCH MCHC RDW Std Deviation RDW Coeff of Heidi Plt Count MPV Immature Gran % (Auto) Neut % (Auto) Lymph % (Auto) [place] % (Auto) Eos % (Auto) Baso % (Auto) Absolute Neuts (auto) Absolute Lymphs (auto) Nucleated RBC % D-Dimer Quant (PE/DVT) Sodium Potassium Chloride Carbon Dioxide Anion Gap BUN Creatinine Estim Creat Clear Calc Est GFR (MDRD) Af Amer Est GFR (MDRD) Non-Af BUN/Creatinine Ratio Glucose Lactic Acid 1.0 Calcium Total Bilirubin AST ALT Alkaline Phosphatase Troponin I High Sens 9 B-Natriuretic Peptide 24.9 Total Protein Albumin Globulin Albumin/Globulin Ratio Radiography Diagnostic Testing: Clinical Impression(s) from Imaging Studies Chest X-Ray 05/26/21 16:00 IMPRESSION: Emphysema without pneumonia or atelectasis. Electronically Signed: Regan Yan MD at 16:25 EST , Chest CTA 05/26/21 18:35 IMPRESSION: No demonstrated pulmonary embolism or arterial dissection. Electronically Signed: Waylon Watters MD at 20:38 EST , EKG Initial EKG: Attestation: I personally reviewed and interpreted this EKG as follows: Comments: Sinus rhythm with a ventricular rate of 69 bpm. Discharge Plan Dx/Rx/DC Orders Clinical Impression: COVID-19, Acute hypoxemic respiratory failure due to COVID-19, Acute dehydration, Acute hypotension Disposition Disposition: Acute Care Hospital [facility]
[2021-05-26] MEDS: 0.9% Normal Saline 1,000 ML 999 ML IV (17:10)
[2021-05-26 17:27] LABS: Absolute Lymphocyte Count 1.08 X10^3/uL (0.83-4.51); Basophil# 0.02 X10^3/uL; Basophil% 0.6 % (0-1); Eosinophil# 0.02 X10^3/uL; Eosinophils% 0.6 % (0-5); Hematocrit 35.3 % (37-47); Hemoglobin 11.8 g/dL (12.0-15.0); Lymphocyte # 1.08 X10^3/ul (0.83-4.51); Lymphocyte % 30.9 % (19-41); Mean Corp Hgb Conc 33.4 g/dL (32-36); Mean Corpuscular Volume 89.8 fL (81-99); Mean Platelet Vol. 10.5 fl (6.2-12.0); Monocyte# 0.35 X10^3/uL; NRBC Flagged by Analyzer 0 % (0-5); Neutrophil # 2.02 X10^3/uL (2.7-7.7); Neutrophil % 57.6 % (47-70); Platelet Count 157 K/mm3 (150-450); RBC Distribution Width CV 12.2 % (11.6-14.6); RBC Distribution Width SD 40.1 fl (35.1-43.9); Red Blood Count 3.93 M/mm3 (4.2-5.4); White Blood Count 3.5 K/mm3 (4.4-11.0)
[2021-05-26 17:48] LABS: ALB/GLOB Ratio 0.9 RATIO (0.9-2.4); AST(SGOT) 19 U/L (15-37); Alanine Aminotransfer ALT/SGPT 16 U/L (13-56); Albumin, Serum 3.5 g/dL (3.2-5.0); Alkaline Phosphatase 83 U/L (45-117); Anion Gap 6 (5-15); BUN 16 mg/dL (7-18); BUN/Creat Ratio 16.5 RATIO (10-20); Chloride 104 mmol/L (98-107); Creatinine, Serum 0.97 mg/dL (0.55-1.02); EST Glomerular Filtration Rate 60 mL/min (>60); Est Glom Filt Rate - Afr Amer 72 mL/min (>60); Estimated Creatinine Clearance 42.09 ml/min; Globulin 3.7 g/dL (2.2-4.2); Glucose 102 mg/dL (74-106); Potassium 3.5 mmol/L (3.5-5.1); Protein, Total 7.2 g/dL (6.4-8.2); Sodium Level 138 mmol/L (136-145); Troponin-I HS 7 pg/mL (3.0-54.0)
[2021-05-26 17:51] LABS: D-Dimer Quantitative (DVT/PE) 1.17 FEU/ug/m (0.27-0.49)
[2021-05-26 17:55] LABS: BNP,B-Type NATRIURETIC PEPTIDE 24.9 pg/mL (0-100)
--- NOTE | 2021-05-26 18:35 | CT_ITS ---
EXAM: CT ANGIOGRAPHY CHEST WITHOUT AND WITH INTRAVENOUS CONTRAST CLINICAL INDICATION: covid 19, pulmonary embolism TECHNIQUE: Helically acquired angiography images were obtained of the chest without and with intravenous contrast. This CT exam was performed using one or more of the following dose reduction techniques: automated exposure control, adjustment of the mA and/or kV according to patient size, and/or use of iterative reconstruction technique. This report was created using [employer] report generation technology. MIP reconstructed images were created and reviewed. CONTRAST: IV 100mL Isovue-370 COMPARISON: 9.2.21 FINDINGS: PULMONARY ARTERIES: No demonstrated pulmonary embolism or arterial dissection. AORTA: Unremarkable. Normal in caliber. No evidence of dissection. GREAT VESSELS OF AORTIC ARCH: Unremarkable. Normal in caliber. No evidence of dissection. LUNGS AND PLEURAL SPACES: There are scattered blebs and bullae. This can be seen in pulmonary emphysema. There is atherosclerotic calcification of the aortic arch with tortuosity and elongation of the aortic arch and descending thoracic aorta. No mass. No pleural effusion or thickening. No pneumothorax. HEART: There are calcifications of the coronary arteries. No pericardial effusion. No signs of right heart strain, ratio of right ventricle to left ventricle measures less than 1. MEDIASTINUM: Unremarkable. No mediastinal or hilar adenopathy. Esophagus is unremarkable. No hiatal hernia. THYROID: Unremarkable. No thyroid lesions. BONES/JOINTS: There are degenerative findings of the thoracic spine. No suspicious lytic or blastic abnormality. GALLBLADDER AND BILE DUCTS: There are multiple metallic clips in the right upper quadrant. This is consistent for a cholecystectomy. CT/CTA Chest W/WO Contrast IMPRESSION: No demonstrated pulmonary embolism or arterial dissection. Electronically Signed: Waylon Watters MD at 20:38 EST ,
[2021-05-26] MEDS: DiphenhydrAMINE 50 MG/ML Syringe 12.5 MG IV (18:56)
[2021-05-26] MEDS: MethylPREDNISolone 125 MG/2 ML Vial 60 MG IV (18:56)
[2021-05-26 19:51] LABS: Troponin-I HS 9 pg/mL (3.0-54.0)
--- NOTE | 2021-05-26 19:55 | ED.RN ---
Patients son Cresencio called for an updated on patient. RN notified Cresencio that we are waiting on a CTA for patient to check for clots in lungs. He would like an updated whenever she is up for re-evaluation. [phone]
--- NOTE | 2021-05-26 21:23 | ED.RN ---
PATIENTS SON, JAZMÍN CALLED. MESSAGE LEFT ON ANSWERING MACHINE THAT HER CTA CAME BACK NORMAL BUT WILL BE ADMITTED TO HOSPITAL DUE TO OXYGEN LEVELS DROPPING.
--- NOTE | 2021-05-26 21:47 | PCM.HP.STD ---
HPI - General HPI Narrative GARY MORRIS, is a 75 F who presents to the emergency room with chief complaint of chest pain. Onset of symptoms began 6 days ago where she began having Covid-like symptoms. In the emergency room her oxygen saturations 85% on room air's greater than 96% with 2 L of oxygen applied. Rapid antigen Covid test is positive and CT angiogram of chest is negative for pulmonary embolism. The patient is otherwise comfortable and not exhibiting symptoms of shortness of breath and or fevers or chills and states she is actually recovering from those feelings that she had earlier in her course. She does live alone and states she has not had food to eat and feels weak as a result. She will be admitted for observation overnight with hydration and adequate nutrition and evaluated for discharge tomorrow. [facility] Medical History Abnormal EKG Acute ischemic colitis Anxiety Arthritis Colitis Dementia Depression Diarrhea Difficulty swallowing Elevated troponin Essential hypertension Fall Gastritis GERD (gastroesophageal reflux disease) Graves disease Hemorrhoid Hx TIA/stroke w/o resid Hypothyroidism Ischemic colitis Mixed hyperlipidemia Rhabdomyolysis Smoker Syncope Home Medications gabapentin 300 mg PO BIDCM 03/16/17 [History Last Taken 12/27/20] levothyroxine 112 mcg PO DAILY 03/16/17 [History Last Taken 12/27/20] omeprazole 40 mg PO DAILY 03/16/17 [History Last Taken 12/27/20] paroxetine HCl 40 mg PO DAILY 03/16/17 [History Last Taken 12/27/20] rosuvastatin 10 mg PO QHS 03/16/17 [History Last Taken 12/27/20] tizanidine 1 - 2 tab PO Q8H PRN 03/16/17 [History Last Taken Unknown] trazodone 100 mg PO QHS 03/16/17 [History Last Taken 12/27/20] aspirin 81 mg PO QHS 06/21/17 [History Last Taken 12/27/20] cholecalciferol (vitamin D3) 125 mcg (5,000 unit) capsule 125 mcg PO DAILY 10/29/20 [History Last Taken 12/27/20] oxycodone-acetaminophen 5 mg-325 mg tablet 1 tab PO Q6H PRN 10/29/20 [History Last Taken Unknown] cholestyramine (with sugar) 4 g PO BIDAC #30 ea 01/04/21 [Rx Last Taken Unknown] sucralfate 1 g PO 1HR_ACHS #120 tab 01/04/21 [Rx Last Taken Unknown] dicyclomine 10 mg capsule 10 mg PO BID #60 cap 02/11/21 [Rx Last Taken Unknown] lisinopril 40 mg tablet 40 mg PO DAILY #90 tab 02/13/21 [Rx Last Taken Unknown] colestipol 1 gram tablet See Rx Instructions .ROUTE .COMPLEX #120 tab 03/03/21 [Rx Last Taken Unknown] amlodipine 10 mg tablet 10 mg PO DAILY 03/21/21 [History Last Taken Unknown] carvedilol 6.25 mg tablet 6.25 mg PO BID #180 tab 04/03/21 [Rx Last Taken Unknown] Allergy/AdvReac Type Severity Reaction Status Date / Time iodine Allergy Severe Anaphylaxis Verified 05/26/21 20:26 NSAIDS (Non-Steroidal Allergy Anaphylaxis Verified 05/26/21 15:09 Anti-Inflamma Penicillins Allergy Hives Verified 05/26/21 15:09 Sulfa (Sulfonamide Allergy Unknown Verified 05/26/21 15:09 Antibiotics) Family History Mother Esophageal cancer Hypertension CVA (cerebral vascular accident) Cardiac arrhythmia Surgical History History of appendectomy History of bilateral cataract extraction History of bunionectomy of both great toes Hx of cholecystectomy Hx of eye surgery S/P carpal tunnel release S/P total abdominal hysterectomy and bilateral salpingo-oophorectomy Social History Smoking Status: Former smoker second hand exposure: Yes alcohol intake: never substance use type: does not use caffeine: Yes Type: coffee Number of servings: 1 what type of physical activity do you participate in: none frequency: does not exercise seatbelt use: always ROS Constitutional Constitutional: Reports fatigue and weakness; Denies chills or fever(s) Eyes Eyes: Denies blurry vision ENT HEENT: Denies abnormal hearing Cardiovascular Cardiovascular: Reports chest pain Respiratory/Chest Respiratory/Chest: Denies cough Gastrointestinal Gastrointestinal: Denies abdominal pain Musculoskeletal Musculoskeletal: Denies back pain Neurologic Neurologic: Denies abnormal speech Psychiatric Psychiatric: Denies anxiety Vital Signs Vital Signs Vital Signs: 05/26/21 15:09 05/26/21 16:04 05/26/21 16:46 Temperature 97.9 F Temperature Source Oral Pulse Rate 65 Respiratory Rate 16 Blood Pressure 100/61 Blood Pressure Mean 74 Pulse Ox 95 95 Oxygen Delivery Method Room Air Room Air Room Air Oxygen Flow Rate (L/min) 05/26/21 16:47 05/26/21 18:30 05/26/21 18:31 Temperature Temperature Source Pulse Rate 69 56 L Respiratory Rate 18 12 Blood Pressure 94/65 151/59 H Blood Pressure Mean 74 89 Pulse Ox 98 97 97 Oxygen Delivery Method Room Air Nasal Cannula Nasal Cannula Oxygen Flow Rate (L/min) 2 2 05/26/21 19:10 05/26/21 20:03 05/26/21 21:06 Temperature Temperature Source Pulse Rate 62 73 79 Respiratory Rate 18 19 H 18 Blood Pressure 146/88 H 123/71 H 126/70 H Blood Pressure Mean 107 88 88 Pulse Ox 100 95 92 Oxygen Delivery Method Nasal Cannula Nasal Cannula Room Air Oxygen Flow Rate (L/min) 2 2 05/26/21 21:12 Temperature Temperature Source Pulse Rate Respiratory Rate Blood Pressure Blood Pressure Mean Pulse Ox 85 Oxygen Delivery Method Room Air Oxygen Flow Rate (L/min) Weight Weight: 125 lb Body Mass Index (BMI) 22.1 Physical Exam Const oriented x3; Negative for well nourished HEENT normocephalic and head/scalp atraumatic Eyes PERRL Neck supple Lymph Lymphatic: no lymphadenopathy noted Resp normal respiratory effort and clear to auscultation bilaterally Cardio regular rate, regular rhythm, S1 normal heart sound and S2 normal heart sound GI normal to inspection, nondistended, normoactive bowel sounds Extremity no clubbing, cyanosis or edema Skin General Skin Exam: turgor normal Neuro CN's II-XII intact bilaterally Psych affect normal Results Lab / Micro Data Result Diagrams: 05/26/21 17:00 05/26/21 17:00 Labs: Laboratory Results - last 24 hr 05/26/21 17:00: Sodium 138, Potassium 3.5, Chloride 104, Carbon Dioxide 28.0, Anion Gap 6, BUN 16, Creatinine 0.97, Estim Creat Clear Calc 42.09, Est GFR (MDRD) Af Amer 72, Est GFR (MDRD) Non-Af 60, BUN/Creatinine Ratio 16.5, Glucose 102, Calcium 8.0 L, Total Bilirubin 0.30, AST 19, ALT 16, Alkaline Phosphatase 83, Troponin I High Sens 7, Total Protein 7.2, Albumin 3.5, Globulin 3.7, Albumin/Globulin Ratio 0.9 05/26/21 17:00: WBC 3.5 L, RBC 3.93 L, Hgb 11.8 L, Hct 35.3 L, MCV 89.8, MCH 30.0, MCHC 33.4, RDW Std Deviation 40.1, RDW Coeff of Heidi 12.2, Plt Count 157, MPV 10.5, Immature Gran % (Auto) 0.300, Neut % (Auto) 57.6, Lymph % (Auto) 30.9, [place] % (Auto) 10.0, Eos % (Auto) 0.6, Baso % (Auto) 0.6, Absolute Neuts (auto) 2.0, Absolute Lymphs (auto) 1.08, Nucleated RBC % 0 05/26/21 17:00: D-Dimer Quant (PE/DVT) 1.17 H* 05/26/21 17:00: Lactic Acid 1.0 05/26/21 17:00: B-Natriuretic Peptide 24.9 05/26/21 18:55: Troponin I High Sens 9 Micro: Microbiology 05/26/21 17:21 Mucosa - Nasopharyngeal Influenza Types A,B Direct FA (KANDY) - Final 05/26/21 17:00 Nasal Secretion SARS-CoV-2 Antigen (Rapid) - Final SARS-CoV-2 (COVID 19) Radiology Impression Chest X-Ray 05/26/21 16:00 IMPRESSION: Emphysema without pneumonia or atelectasis. Electronically Signed: Regan Yan MD at 16:25 EST , Chest CTA 05/26/21 18:35 IMPRESSION: No demonstrated pulmonary embolism or arterial dissection. Electronically Signed: Waylon Watters MD at 20:38 EST , Assessment & Plan Assessment/Plan (1) Chest pain, unspecified: QUALIFIERS: Chest pain type: unspecified Qualified Code(s): R07.9 - Chest pain, unspecified (2) Hypothyroidism: (3) Essential hypertension: (4) GERD (gastroesophageal reflux disease): (5) COVID: PLAN: 1. Covid infection?day 6 with hypoxia?admit patient to general medical floor for observation continue Covid precautions per routine protocol, oxygen supplemental. 2. Deconditioning and overall poor self-care for the past several days?we will check prealbumin level and get a nutrition consult with full diet patient states she is hungry just has not had food available 3. Hypothyroidism continue Synthroid 4. Hypertension?continue home medications 5. Acid reflux disease?continue PPI 6. DVT prophylaxis?low molecular weight heparin Consult case management for discharge planning as patient may not be able to live adequately on their own at this time Charges/Coding Visit Charges OBSV E&M: 40990 Initial observation care L2
[2021-05-26 22:27] LABS: Prealbumin 12.9 mg/dL (20.0-40.0)
[2021-05-26] MEDS: traZODone 100 MG Tablet PO (23:47)
[2021-05-26] MEDS: Carvedilol 6.25 MG Tablet PO (23:47)
[2021-05-26] MEDS: Dicyclomine 10 MG Capsule PO (23:47)
[2021-05-26] MEDS: Aspirin E.C. 81 MG Tablet PO (23:47)
[2021-05-27] VITALS (9 sets, daily range): BP systolic 105–143; BP diastolic 43–57; PULSE 57–76; RESP 16; TEMP 36.6–36.8; O2SAT 90–98
[2021-05-27 05:30] LABS: Absolute Lymphocyte Count 0.45 X10^3/uL (0.83-4.51); Absolute Neutrophil Count 1.7 X10^3/uL (2.0-7.7); Hemoglobin 11.5 g/dL (12.0-15.0); Lymphocyte # 0.45 X10^3/ul (0.83-4.51); Lymphocyte % 20.1 % (19-41); Mean Corp Hgb Conc 33.8 g/dL (32-36); Mean Corpuscular Hgb 29.9 pg (27.0-32.0); Mean Corpuscular Volume 88.3 fL (81-99); Mean Platelet Vol. 10.6 fl (6.2-12.0); Monocyte# 0.09 X10^3/uL; NRBC Flagged by Analyzer 0 % (0-5); Neutrophil # 1.69 X10^3/uL (2.7-7.7); Neutrophil % 75.5 % (47-70); POSITIVE DIFFERENTIAL YES; Platelet Count 141 K/mm3 (150-450); RBC Distribution Width CV 12.1 % (11.6-14.6); RBC Distribution Width SD 38.8 fl (35.1-43.9); Red Blood Count 3.85 M/mm3 (4.2-5.4); White Blood Count 2.2 K/mm3 (4.4-11.0)
[2021-05-27 05:37] LABS: Differential Indicated SCAN CRITERIA MET
[2021-05-27 05:48] LABS: Anion Gap 5 (5-15); BUN 16 mg/dL (7-18); BUN/Creat Ratio 15.4 RATIO (10-20); Calcium,Total 8.2 mg/dL (8.5-10.1); Chloride 108 mmol/L (98-107); Creatinine, Serum 1.04 mg/dL (0.55-1.02); EST Glomerular Filtration Rate 55 mL/min (>60); Est Glom Filt Rate - Afr Amer 67 mL/min (>60); Estimated Creatinine Clearance 39.26 ml/min; Glucose 242 mg/dL (74-106); Potassium 4.2 mmol/L (3.5-5.1); Sodium Level 139 mmol/L (136-145)
--- NOTE | 2021-05-27 07:49 | PCM.PN.HOSP ---
Subjective Subjective Patient admitted with 6 days of symptoms of subjective fever, myalgia, cough, weakness, rhinorrhea and headache. Objective Data Objective Data Vital Signs: Vital Signs Temp Pulse Resp BP Pulse Ox 97.9 F 57 L 16 107/56 L 90 05/27/21 05:23 05/27/21 05:23 05/27/21 05:23 05/27/21 05:23 05/27/21 07:47 Oxygen Flow Rate (L/min) 2 Oxygen Delivery Method Nasal Cannula Weight: 130 lb 1.164 oz Body Mass Index (BMI) 23.0 Intake & Output: Intake and Output for Last 24 Hours 05/25/21 05/26/21 05/27/21 23:59 23:59 23:59 Intake Total 1000 / 1000 Balance 1000 / 1000 Lab / Micro Data Result Diagrams: 05/27/21 05:15 05/27/21 05:15 Labs: Laboratory Results - last 24 hr 05/26/21 17:00: Sodium 138, Potassium 3.5, Chloride 104, Carbon Dioxide 28.0, Anion Gap 6, BUN 16, Creatinine 0.97, Estim Creat Clear Calc 42.09, Est GFR (MDRD) Af Amer 72, Est GFR (MDRD) Non-Af 60, BUN/Creatinine Ratio 16.5, Glucose 102, Calcium 8.0 L, Total Bilirubin 0.30, AST 19, ALT 16, Alkaline Phosphatase 83, Troponin I High Sens 7, Total Protein 7.2, Albumin 3.5, Globulin 3.7, Albumin/Globulin Ratio 0.9 05/26/21 17:00: WBC 3.5 L, RBC 3.93 L, Hgb 11.8 L, Hct 35.3 L, MCV 89.8, MCH 30.0, MCHC 33.4, RDW Std Deviation 40.1, RDW Coeff of Heidi 12.2, Plt Count 157, MPV 10.5, Immature Gran % (Auto) 0.300, Neut % (Auto) 57.6, Lymph % (Auto) 30.9, [place] % (Auto) 10.0, Eos % (Auto) 0.6, Baso % (Auto) 0.6, Absolute Neuts (auto) 2.0, Absolute Lymphs (auto) 1.08, Nucleated RBC % 0 05/26/21 17:00: D-Dimer Quant (PE/DVT) 1.17 H* 05/26/21 17:00: Lactic Acid 1.0 05/26/21 17:00: B-Natriuretic Peptide 24.9 05/26/21 18:55: Troponin I High Sens 9 05/26/21 18:55: Prealbumin 12.9 L 05/27/21 05:15: WBC 2.2 L, RBC 3.85 L, Hgb 11.5 L, Hct 34.0 L, MCV 88.3, MCH 29.9, MCHC 33.8, RDW Std Deviation 38.8, RDW Coeff of Heidi 12.1, Plt Count 141 L, MPV 10.6, Immature Gran % (Auto) 0.400, Neut % (Auto) 75.5 H, Lymph % (Auto) 20.1, [place] % (Auto) 4.0, Eos % (Auto) 0.0, Baso % (Auto) 0.0, Absolute Neuts (auto) 1.7 L, Absolute Lymphs (auto) 0.45 L, Nucleated RBC % 0, Diff Path Review August05/27/21 05:15: Sodium 139, Potassium 4.2, Chloride 108 H, Carbon Dioxide 26.0, Anion Gap 5, BUN 16, Creatinine 1.04 H, Estim Creat Clear Calc 39.26, Est GFR (MDRD) Af Amer 67, Est GFR (MDRD) Non-Af 55 L, BUN/Creatinine Ratio 15.4, Glucose 242 H, Calcium 8.2 L Micro: Microbiology 05/26/21 17:21 Mucosa - Nasopharyngeal Influenza Types A,B Direct FA (KANDY) - Final 05/26/21 17:00 Nasal Secretion SARS-CoV-2 Antigen (Rapid) - Final SARS-CoV-2 (COVID 19) Radiography Diagnostic Testing: Radiology Impression Chest X-Ray 05/26/21 16:00 IMPRESSION: Emphysema without pneumonia or atelectasis. Electronically Signed: Regan Yan MD at 16:25 EST , Chest CTA 05/26/21 18:35 IMPRESSION: No demonstrated pulmonary embolism or arterial dissection. Electronically Signed: Waylon Watters MD at 20:38 EST Reading Location ID and State: [facility] / [place] , Service support , Physical Exam Narrative General: Alert, Oriented x3, Cooperative HEENT: Atraumatic, PERRLA, EOMI, Normocephalic Oral: No Gingival or Mucosal Lesions/ Ulcerations Neck: Supple, No JVD, Negative Carotid Bruits Lungs: Air entry diminished in bilateral lung bases. No crepitation/rhonchi. Pulse ox 90 to 97% on 2 L of oxygen Cardiovascular: Regular rate, Regular Rhythm, Normal S1, Normal S2, No murmurs Abdomen: Bowel Sounds Present, Soft, Non Tender, Non-Distended : No renal angle tenderness. No suprapubic tenderness. Extremities: No edema, Capillary Refill Less than 3 Seconds Skin: No rashes, No breakdown Musculoskeletal: No Tenderness to Palpation of Joints or Extremities Neurological: Cranial nerves II-XII grossly intact, DTR 2+/4 and Symmetrical, Neuro grossly intact Psych/Mental Status: Flat affect Assessment & Plan Assessment/Plan (1) Chest pain, unspecified: QUALIFIERS: Chest pain type: unspecified Qualified Code(s): R07.9 - Chest pain, unspecified (2) Hypothyroidism: (3) Essential hypertension: (4) GERD (gastroesophageal reflux disease): (5) COVID: PLAN: 1. 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 Patient is admitted to general medical floor for observation. Continue Covid precautions per routine protocol, oxygen supplemental to keep pulse ox more than 92 to 94%. Chest x-ray and CTA chest individually reviewed. Emphysematous findings with blebs and bullae. No mass. No pleural effusion, no pneumothorax. No clinically significant consolidation/groundglass opacity consistent with pneumonia. 2. Deconditioning and overall poor self-care for the past several days? prealbumin level is low 12.9. Industrial Health Engineer is consulted. 3. Hypothyroidism continue Synthroid 4. Hypertension?continue home medications 5. Acid reflux disease?continue PPI 6. DVT prophylaxis?low molecular weight heparin Case management consulted. PT OT already ordered. Patient might need rehab depending upon her functional status. Charges/Coding Visit Charges OBSV E&M: 90876 Subsequent observation care L2
[2021-05-27] MEDS: Enoxaparin 40 MG/0.4 ML Syringe SC (08:22)
[2021-05-27] MEDS: Levothyroxine 112 MCG Tablet PO (08:23)
[2021-05-27] MEDS: Gabapentin 300 MG Capsule PO ×2 (08:23→20:04)
[2021-05-27] MEDS: Pantoprazole Sodium 40 MG Tablet PO (08:23)
[2021-05-27] MEDS: Cholecalciferol (VIT D3) 25 MCG TABLET (1,000 UNITS) 125 MCG PO (08:23)
[2021-05-27] MEDS: Dicyclomine 10 MG Capsule PO ×2 (08:23→20:04)
[2021-05-27] MEDS: Carvedilol 6.25 MG Tablet PO ×2 (08:23→20:04)
[2021-05-27] MEDS: Atorvastatin Calcium 20 MG Tablet PO (08:23)
[2021-05-27] MEDS: Lisinopril 40 MG Tablet PO (08:23)
[2021-05-27] MEDS: Paroxetine 20 MG Tablet 40 MG PO (08:24)
[2021-05-27] MEDS: amLODIPine 10 MG Tablet PO (08:26)
--- NOTE | 2021-05-27 08:45 | CASEMGMT ---
Addendum entered by Gisela Vega 05/27/21 09:19: Received tc back from Rashida at [facility], states SN has noticed a decline in pt in the last week and pt would benefit from higher level of care. PT has not seen pt at home. SUPERVISOR PHOSPHATIC FERTILIZER saw pt once in March but not recently. Pt receives frozen meals weekly but pt does not care for them. Per Rashida, pt does not have great support at home although she has a cg through [facility] but pt has been declining them for the last 2 wks d/t not feeling well. SN sets up pt meds and monitors blood pressure. Pt does not have O2 at home. RN CM to complete assessment with pt. Original Note: Left message with Rashida at [facility] to obtain info of home situation with pt. Noted pt has SN but not SUPERVISOR PHOSPHATIC FERTILIZER, possible referral for this d/t pt not having food at home. Will await returned call.
[2021-05-27] MEDS: dexAMETHasone 4 MG Tablet 6 MG PO (10:31)
--- NOTE | 2021-05-27 11:10 | CASEMGMT ---
Addendum entered by Aria Moe 05/27/21 11:38: SW faxed referral to [facility], called and left a message for Kanchan at [facility] making her aware of the referral. PT/OT are still pending. ETHAN Batista Original Note: Social Work SW met w/pt in room in regard to prior level of function, anticipated discharge plan. SW also called pt's daughter Iliana PCP: Kaela Crane Specialists: [facility] Friend Preferred Pharmacy: [facility] Insurance/Prescription Coverage: [employer] LW/POA: None, daughter Iliana states that son does not want to be POA, and son was to help pt complete forms but he has not done so. LNOK: Son Cresencio Shea, daughter Iliana Young Living arrangements/Prior level of function: Pt lives home alone in a 2nd floor apartment in an elevator building. Pt is independent usually in personal ADLs. She has an aide two days per week, two hours per day, and the aide helps her with laundry, cleaning, food preparation. Pt uses a walker at her baseline. Pt also has frozen home delivered meals. DME/HHC: Pt has a walker, shower chair, medical alert. Pt does not have home oxygen, but is on oxygen at present. Pt is current with [facility]. Pt als0 has [employer], and Karla Avalos is her correctional case records supervisor. As per pt, Karla is new and pt has not yet met her. SW spoke w/pt initially about food at home, as it was documented that pt did not get herself anything to eat. Pt states she does have food but just wasn't strong enough to eat. We spoke about how things have been going at home. Pt states that she feels she is strong enough usually, but her legs go out from under her and she doesn't know when it would happen. She states she does not feel safe at home alone, and has not felt safe since she was here in December. Pt also tells SW she has dementia. Pt states would feel safer somewhere where there is someone available to look after her. SW asked if she has spoken w/her correctional case records supervisor Karla about this, she states no. SW spoke w/pt about plan from here. SW explained that assisted living may be a good plan for her exterminator, and Karla should help pt with this. In the interim however, JOSI asked pt about going to a longterm. Pt is agreeable. JOSI provided a list of SNF complete with quality and resource use data in pt's preferred geographic area, that takes pt's insurance and will take a COVID pt in the 10 day window of diagnosis. This list is just one facility, [facility]. Pt is agreeable to JOSI sending the referral to [facility]. SW explained will call Karla with [facility], and can also call her family--pt agreeable to JOSI calling daughter Iliana and gave SW her number. She states her son is not very helpful. Her daughter came to stay w/her after she came home in December. SW called Iliana Young([phone]), who lives in [place]. SW reviewed w/daughter what pt had said about not feeling safe at home since December. Pt's daughter thought that pt was okay since she has people in and out of the home daily. SW explained that pt told SW she has dementia, and that her legs go out from under her, and this seems scary to her. SW explained spoke to pt about assisted living and SNF. SW explained that pt's correctional case records supervisor Karla will need to assist in getting pt to assisted living, but from here we can send pt to a SNF. SW explained to daughter that [facility] is the only local place taking COVID+ pts at this time. Daughter agreeable to referral being sent to [facility]. SW explained will call Karla and will also let [facility] know the goal may be for [place] to get [place] to [place]. SW also let daughter know if SW gets a number for Karla will pass it on to her. Daughter states understanding. Plan: Short term from here is SNF, with prison goal of [place]. SW will send referral to [facility] shortly. ETHAN Batista
[2021-05-27 12:43] LABS: Pathologist Review Reviewed
--- NOTE | 2021-05-27 13:16 | CASEMGMT ---
BARNEY VASQUEZ in to discuss HANSEN form with patient. RN PEDRO explained HANSEN form, patient voiced understanding. Pt signed form and filed in chart. Pt provided with a copy of signed HANSEN form. Patient had no further questions or concerns at this time Pt reports she has had counseling in the past but not in the last year. Notified JOSI.
--- NOTE | 2021-05-27 15:42 | CASEMGMT ---
Addendum entered by Aria Moe 05/27/21 16:40: SW received a call back from [facility] in [place], they do not take pt's insurance. ETHAN Batista Original Note: Social Work SW received an e-mail from Kanchan at [facility] stating they are not taking any referrals at this time. SW did e-mail back inquiring when they may consider taking referrals again. SW will now need to find other facilities that will take COVID+ patients. SW then called 1. [facility], they will review the referral, they are not sure if they take pt's insurance however, will look at it. Referral faxed. SW called 2. [facility](as they were taking COVID+ patients last week), message left. SW called 3. [facility](they also have taken COVID+ recently), they will not consider pt until post positive COVID 11 days. 4. [facility] in [facility]--they will look at referral, referral faxed. 5. [facility] in [place], message left. SW will continue to follow, will wait to hear back from [facility] and [facility] in regard to referrals, and [facility] and [facility] to see if they will consider pt. ETHAN Batista
[2021-05-27] MEDS: traZODone 100 MG Tablet PO (20:04)
[2021-05-27] MEDS: Aspirin E.C. 81 MG Tablet PO (20:04)
[2021-05-28] VITALS (7 sets, daily range): BP systolic 131–149; BP diastolic 48–65; PULSE 57–75; RESP 16–18; TEMP 36.7–37; O2SAT 93–97
[2021-05-28] MEDS: Acetaminophen 325 MG Tablet 650 MG PO (02:27)
--- NOTE | 2021-05-28 08:26 | CASEMGMT ---
Social Work Note SW received message from Jose Luis at [facility] to call him regarding referral ([phone]). SW received message that [facility] doesn't accept pt's insurance. SW received message from Hazel at [facility] stating they can accept pt. SW will call Jose Luis at [facility] and then will discuss with pt and pt's daughter about SNF options for pt. SW to continue to follow. Cielo Guerin DOPE FIRER, VISE HAND
[2021-05-28] MEDS: Cholecalciferol (VIT D3) 25 MCG TABLET (1,000 UNITS) 125 MCG PO (08:28)
[2021-05-28] MEDS: Atorvastatin Calcium 20 MG Tablet PO (08:28)
[2021-05-28] MEDS: Dicyclomine 10 MG Capsule PO ×2 (08:28→19:58)
[2021-05-28] MEDS: dexAMETHasone 4 MG Tablet 6 MG PO (08:29)
[2021-05-28] MEDS: amLODIPine 10 MG Tablet PO (08:29)
[2021-05-28] MEDS: Pantoprazole Sodium 40 MG Tablet PO (08:29)
[2021-05-28] MEDS: Gabapentin 300 MG Capsule PO ×2 (08:29→19:58)
[2021-05-28] MEDS: Levothyroxine 112 MCG Tablet PO (08:29)
[2021-05-28] MEDS: Lisinopril 40 MG Tablet PO (08:29)
[2021-05-28] MEDS: Carvedilol 6.25 MG Tablet PO ×2 (08:29→19:58)
[2021-05-28] MEDS: Paroxetine 20 MG Tablet 40 MG PO (08:30)
[2021-05-28] MEDS: Enoxaparin 40 MG/0.4 ML Syringe SC (08:30)
--- NOTE | 2021-05-28 10:09 | CASEMGMT ---
Social Work Note SW placed a call to Jose Luis at [facility] ([phone]) regarding referral. Jose Luis states they are not able to accept pt. JOSI placed a call to [facility], message left for admissions to call this worker back regarding referral. JOSI placed a call to [facility] and left message for admissions to call this worker back. Cielo Guerin DIGITAL TRAFFIC COORDINATOR, LINSEED OIL BOILER
--- NOTE | 2021-05-28 10:34 | CASEMGMT ---
Social Work Pt's clinical case manager Karla Avalos called back([phone]). SW let her know pt will be going to a longterm from here, and then is going to need some assistance in going to assisted living. JOSI explained to Karla that pt had said yesterday she does not feel safe at home, and at this time would like to go to assisted living. Karla asks we let her know where pt is going at discharge. JOSI left a message for SW on MS3 to follow up w/Karla at [facility] to let her know where pt will be going at discharge. ETHAN Batista
--- NOTE | 2021-05-28 11:09 | CASEMGMT ---
Addendum entered by Cielo Guerin 05/28/21 12:37: J[facility]I received message from [facility] [place] stating they can accept pt and do have a bed available today, asking when pt is medically ready for discharge. JOSI placed a call to pt's daughter Iliana and spoke with her regarding SNF options. JOSI informed Iliana that at this time, there are no SNF in [facility] that can accept pt. JOSI explained that most SNF require at least 10 day post positive test so pt has limited choices. JOSI explained that at this time, this worker has found two SNF that will accept pt before the 10 days post positive test. JOSI provided the names of both facilities ([facility] [place] and [facility] [place] Iliana states she spoke with her brother who wanted pt to go to [facility] in [place] as he knows people that work there and they do accept COVID pt's. JOSI informed Iliana that this worker can call them and confirm their COVID policy. Iliana states understanding. JOSI placed a call to [facility] in [place] and spoke with Meme in admissions. Meme states they would consider pt 14 days post positive test. JOSI placed a call back to Iliana an updated her that [facility] will not consider pt until 14 days post positive test. JOSI again reiterated that at this time there are only two SNF that this worker has found that will take pt and a decision needs to be made as pt is medically ready for discharge. JOSI explained that pt could go to one of those SNF until pt is either 10 or 14 days post positive test and then could transfer to a closer SNF. Iliana states that she will call her brother and then will call this worker back with SNF choice. JOSI waiting call back from Iliana. Plan: SNF pending acceptance and pre-cert Original Note: Social Work Note JOSI placed a call to [facility] in [place] and spoke with admissions. They do have beds available on their COVID unit, do accept pt's insurance, willing to review referral. JOSI faxed referral to [facility]. Plan: SNF pending acceptance and pre-cert Cielo Guerin HOT TOP LINER HELPER, EXPERIMENTAL TECHNICIAN
--- NOTE | 2021-05-28 13:40 | PN.HOSP_ITS ---
Subjective Subjective Patient is not on oxygen. She is doing good. She still feels weak and tired and fatigued. Objective Data Objective Data Vital Signs: Vital Signs Temp Pulse Resp BP Pulse Ox 98.1 F 73 16 139/49 H 93 05/28/21 11:07 05/28/21 11:07 05/28/21 11:07 05/28/21 11:07 05/28/21 11:07 Oxygen Flow Rate (L/min) 2 Oxygen Delivery Method Room Air Weight: 130 lb 1.164 oz Body Mass Index (BMI) 23.0 Intake & Output: Intake and Output for Last 24 Hours 05/26/21 05/27/21 05/28/21 23:59 23:59 23:59 Intake Total 1000 / 1000 600 / 600 250 / 250 Balance 1000 / 1000 600 / 600 250 / 250 Lab / Micro Data Result Diagrams: 05/27/21 05:15 05/27/21 05:15 Micro: Microbiology 05/26/21 17:21 Mucosa - Nasopharyngeal Influenza Types A,B Direct FA (KANDY) - Final 05/26/21 17:00 Nasal Secretion SARS-CoV-2 Antigen (Rapid) - Final SARS-CoV-2 (COVID 19) Physical Exam Narrative General: Alert, Oriented x3, Cooperative HEENT: Atraumatic, PERRLA, EOMI, Normocephalic Oral: No Gingival or Mucosal Lesions/ Ulcerations Neck: Supple, No JVD, Negative Carotid Bruits Lungs: Air entry diminished in bilateral lung bases. No crepitation/rhonchi. No hypoxia Cardiovascular: Regular rate, Regular Rhythm, Normal S1, Normal S2, No murmurs Abdomen: Bowel Sounds Present, Soft, Non Tender, Non-Distended : No renal angle tenderness. No suprapubic tenderness. Extremities: No edema, Capillary Refill Less than 3 Seconds Skin: No rashes, No breakdown Musculoskeletal: No Tenderness to Palpation of Joints or Extremities. Muscle 4/5 at major joints of all 4 extremities Neurological: Cranial nerves II-XII grossly intact, DTR 2+/4 and Symmetrical, Neuro grossly intact Psych/Mental Status: Flat affect Assessment & Plan Assessment/Plan (1) Chest pain, unspecified: QUALIFIERS: Chest pain type: unspecified Qualified Code(s): R07.9 - Chest pain, unspecified (2) Hypothyroidism: (3) Essential hypertension: (4) GERD (gastroesophageal reflux disease): (5) COVID: PLAN: 1. 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 Patient is admitted to general medical floor for observation. Continue Covid precautions per routine protocol, oxygen supplemental to keep pulse ox more than 92 to 94%. Chest x-ray and CTA chest individually reviewed. Emphysematous fi ndings with blebs and bullae. No mass. No pleural effusion, no pneumothorax. No clinically significant consolidation/groundglass opacity consistent with pneumonia. 05/28: Discussed with manager rn case regarding SNF. Awaiting pre-CERT. Mild Covid infection with no hypoxia or tachypnea or pneumonia. 2. Deconditioning and overall poor self-care for the past several days? prealbumin level is low 12.9. Hydroelectric Station Chief is consulted. 3. Hypothyroidism continue Synthroid 4. Hypertension?continue home medications 5. Acid reflux disease?continue PPI 6. DVT prophylaxis?low molecular weight heparin Case management consulted. PT OT already ordered. Patient might need rehab depending upon her functional status. Charges/Coding Visit Charges Inpatient E&M: 41583 Subs Hosp L2
--- NOTE | 2021-05-28 14:28 | CASEMGMT ---
Social Work Note SW placed a call to pt's daughter Iliana and left message requesting call back regarding SNF options. JOSI waiting for call back from Iliana. Plan: SNF pending acceptance and pre-cert Cielo Guerin SALES AND MARKETING MANAGER, CONTROL ENGINEER
--- NOTE | 2021-05-28 14:45 | CASEMGMT ---
Social Work Note JOSI placed a call to [facility] and spoke with Zhanna. Zhanna states they are able to accept pt and will submit for pre-cert. JOSI placed another call to pt's daughter Iliana. SW updated Iliana that [facility] can accept pt. Iliana states she was doing her own research and found a snf that will take pt before 10 days positive. Iliana asked if pt was in a COVID unit because if pt is not in a COVID unit then the snf would take pt before 10 days post positive test. SW asked Iliana which snf she is referring to. Iliana states [facility] in [place], states the one you talked to earlier. SW informed Iliana that this worker did speak with that snf earlier and was told that they wouldn't consider pt until 14 days post positive test. SW informed Iliana that since pt is periodically on oxygen (2 liters) that is why [facility] wouldn't consider pt until 14 days post positive test. Iliana states Oh I didn't know she was on Oxygen. SW informed Iliana that pt could go to a SNF and complete the 14 days post positive test and then transfer to [facility]. Iliana states understanding, agreeable to pt going to [facility]. SW in to speak with pt. SW introduced self and role at [facility]. SW spoke with pt about SNF options. Pt states well can't I just go home and have extra help in the home. SW informed pt that the extra help would likely be private pay. Pt states well I can't afford that. SW informed pt of the three SNF that this worker has found that would take pt ([facility] in [place], [facility] in [place] and [facility] in [place]). Pt agreeable to [facility]. SW informed pt that pre-cert is needed. SW placed a call to Lorena ([phone]) at [facility] and left message to disregard referral. Plan: [facility] pending pre-cert Cielo Guerin SURGICAL SCRUB TECHNOLOGIST, DIRECTOR FUNERAL
--- NOTE | 2021-05-28 15:37 | CASEMGMT ---
Social Work Pt and family have chosen for pt to go to the transitional unit at [facility]. JOSI called [facility], left a message for admissions letting them know pt is going elsewhere for rehab. JOSI called pt's nurse outreach case manager, Karla Avalos, let her know pt will be going to [facility]'s transitional unit tomorrow. She asked for the discharge summary be faxed to her tomorrow to [phone]. JOSI will let MS3 SW know. ETHAN Batista
[2021-05-28] MEDS: traZODone 100 MG Tablet PO (19:58)
[2021-05-28] MEDS: Aspirin E.C. 81 MG Tablet PO (19:58)
[2021-05-29] VITALS (9 sets, daily range): BP systolic 114–163; BP diastolic 59–71; PULSE 58–82; RESP 18–20; TEMP 36.5–37; O2SAT 2–97
[2021-05-29 08:25] LABS: Absolute Lymphocyte Count 0.91 X10^3/uL (0.83-4.51); Absolute Neutrophil Count 6.5 X10^3/uL (2.0-7.7); Hematocrit 37.5 % (37-47); Hemoglobin 12.2 g/dL (12.0-15.0); Lymphocyte # 0.91 X10^3/ul (0.83-4.51); Lymphocyte % 11.6 % (19-41); Mean Corp Hgb Conc 32.5 g/dL (32-36); Mean Corpuscular Hgb 29.2 pg (27.0-32.0); Mean Corpuscular Volume 89.7 fL (81-99); Mean Platelet Vol. 10.1 fl (6.2-12.0); Monocyte# 0.41 X10^3/uL; Monocyte% 5.2 % (0-10); NRBC Flagged by Analyzer 0 % (0-5); Neutrophil % 82.6 % (47-70); Platelet Count 201 K/mm3 (150-450); RBC Distribution Width CV 12.3 % (11.6-14.6); RBC Distribution Width SD 39.8 fl (35.1-43.9); Red Blood Count 4.18 M/mm3 (4.2-5.4); White Blood Count 7.9 K/mm3 (4.4-11.0)
[2021-05-29 09:07] LABS: BUN 18 mg/dL (7-18); Creatinine, Serum 0.71 mg/dL (0.55-1.02); Estimated Creatinine Clearance 40.83 ml/min; Glucose 111 mg/dL (74-106)
[2021-05-29 09:08] LABS: Anion Gap 4 (5-15); BUN/Creat Ratio 25.3 RATIO (10-20); Calcium,Total 8.8 mg/dL (8.5-10.1); Chloride 107 mmol/L (98-107); EST Glomerular Filtration Rate 85 mL/min (>60); Est Glom Filt Rate - Afr Amer 103 mL/min (>60); Potassium 3.2 mmol/L (3.5-5.1); Sodium Level 143 mmol/L (136-145); Thyroid Stim Hormone (TSH) 4.43 uIU/mL (0.358-3.74)
[2021-05-29] MEDS: Enoxaparin 40 MG/0.4 ML Syringe SC (09:39)
[2021-05-29] MEDS: Psyllium 1 PACKET PO ×2 (09:39→22:23)
[2021-05-29] MEDS: Senna/Docusate Sodium 1 Tablet 2 TABLET PO ×2 (09:40→22:21)
[2021-05-29] MEDS: Paroxetine 20 MG Tablet 40 MG PO (09:40)
[2021-05-29] MEDS: Acetaminophen 325 MG Tablet 650 MG PO ×3 (09:41→23:54)
[2021-05-29] MEDS: Cholecalciferol (VIT D3) 25 MCG TABLET (1,000 UNITS) 125 MCG PO (09:41)
[2021-05-29] MEDS: Pantoprazole Sodium 40 MG Tablet PO (09:41)
[2021-05-29] MEDS: amLODIPine 10 MG Tablet PO (09:41)
[2021-05-29] MEDS: Levothyroxine 112 MCG Tablet PO (09:41)
[2021-05-29] MEDS: Lisinopril 40 MG Tablet PO (09:41)
[2021-05-29] MEDS: Dicyclomine 10 MG Capsule PO ×2 (09:42→22:22)
[2021-05-29] MEDS: Carvedilol 6.25 MG Tablet PO ×2 (09:42→22:22)
[2021-05-29] MEDS: dexAMETHasone 4 MG Tablet 6 MG PO (09:42)
[2021-05-29] MEDS: Bisacodyl 10 MG Suppository RC (09:42)
[2021-05-29] MEDS: Atorvastatin Calcium 20 MG Tablet PO (09:42)
[2021-05-29] MEDS: Gabapentin 300 MG Capsule PO ×2 (09:42→22:22)
--- NOTE | 2021-05-29 15:27 | CASEMGMT ---
Social Work Note JOSI placed a call to [facility] and spoke with Zhanna. Pt's pre-cert is still pending. JOSI informed Zhanna that pt is medically ready for discharge once pre-cert is obtained. Plan: [facility] pending pre-cert Cielo Guerin DIRECTOR STERILE PROCESSING, TABLE WORKER PACKAGER
--- NOTE | 2021-05-29 15:42 | PCM.PN.HOSP ---
Subjective Subjective Seen and examined. Patient states she did not move her bowels since admission. Laxative medications increased. No shortness of breath. Mild occasional cough. Objective Data Objective Data Vital Signs: Vital Signs Temp Pulse Resp BP Pulse Ox 98.1 F 82 18 114/59 L 95 05/29/21 15:20 05/29/21 15:20 05/29/21 15:20 05/29/21 15:20 05/29/21 15:20 Oxygen Flow Rate (L/min) 2 Oxygen Delivery Method Room Air Weight: 130 lb 1.164 oz Body Mass Index (BMI) 23.0 Intake & Output: Intake and Output for Last 24 Hours 05/27/21 05/28/21 05/29/21 23:59 23:59 23:59 Intake Total 600 / 600 650 / 850 200 / 200 Balance 600 / 600 650 / 850 200 / 200 Lab / Micro Data Result Diagrams: 05/29/21 08:04 05/29/21 08:04 Labs: Laboratory Results - last 24 hr 05/29/21 08:04: WBC 7.9, RBC 4.18 L, Hgb 12.2, Hct 37.5, MCV 89.7, MCH 29.2, MCHC 32.5, RDW Std Deviation 39.8, RDW Coeff of Heidi 12.3, Plt Count 201, MPV 10.1, Immature Gran % (Auto) 0.600, Neut % (Auto) 82.6 H, Lymph % (Auto) 11.6 L, Overton % (Auto) 5.2, Eos % (Auto) 0.0, Baso % (Auto) 0.0, Absolute Neuts (auto) 6.5, Absolute Lymphs (auto) 0.91, Nucleated RBC % 0 05/29/21 08:04: Sodium 143, Potassium 3.2 L, Chloride 107, Carbon Dioxide 32.0, Anion Gap 4 L, BUN 18, Creatinine 0.71, Estim Creat Clear Calc 40.83, Est GFR (MDRD) Af Amer 103, Est GFR (MDRD) Non-Af 85, BUN/Creatinine Ratio 25.3 H, Glucose 111 H, Calcium 8.8, TSH 4.43 H Micro: Microbiology 05/26/21 18:55 Blood Culture (Wb) - No Site/Description Given Blood Culture - Preliminary No growth in 48 hours. 05/26/21 17:00 Blood Culture (Wb) - Anticubital Left Blood Culture - Preliminary No growth in 48 hours. 05/26/21 17:21 Mucosa - Nasopharyngeal Influenza Types A,B Direct FA (KANDY) - Final 05/26/21 17:00 Nasal Secretion SARS-CoV-2 Antigen (Rapid) - Final SARS-CoV-2 (COVID 19) Physical Exam Narrative General: Alert, Oriented x3, Cooperative, fatigue HEENT: Atraumatic, PERRLA, EOMI, Normocephalic Oral: No Gingival or Mucosal Lesions/ Ulcerations Neck: Supple, No JVD, Negative Carotid Bruits Lungs: Air entry diminished in bilateral lung bases. No crepitation/rhonchi. No hypoxia Cardiovascular: Regular rate, Regular Rhythm, Normal S1, Normal S2, No murmurs Abdomen: Bowel Sounds Present, Soft, Non Tender, Non-Distended. No mass palpable : No renal angle tenderness. No suprapubic tenderness. Extremities: No edema, Capillary Refill Less than 3 Seconds Skin: No rashes, No breakdown Musculoskeletal: No Tenderness to Palpation of Joints or Extremities. Muscle 4/5 at major joints of all 4 extremities Neurological: Cranial nerves II-XII grossly intact, DTR 2+/4 and Symmetrical, Neuro grossly intact Psych/Mental Status: Flat affect Assessment & Plan Assessment/Plan (1) Chest pain, unspecified: QUALIFIERS: Chest pain type: unspecified Qualified Code(s): R07.9 - Chest pain, unspecified (2) Hypothyroidism: (3) Essential hypertension: (4) GERD (gastroesophageal reflux disease): (5) COVID: PLAN: 1. 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 Patient is admitted to general medical floor for observation. Continue Covid precautions per routine protocol, oxygen supplemental to keep pulse ox more than 92 to 94%. Chest x-ray and CTA chest individually reviewed. Emphysematous findings with blebs and bullae. No mass. No pleural effusion, no pneumothorax. No clinically significant consolidation/groundglass opacity consistent with pneumonia. 05/28: Discussed with telephonic case manager regarding SNF. Awaiting pre-CERT. Mild Covid infection with no hypoxia or tachypnea or pneumonia. 05/29: Awaiting pre-CERT 2. Deconditioning and overall poor self-care for the past several days? prealbumin level is low 12.9. Hat Sprayer is consulted. 3. Hypothyroidism continue Synthroid TSH: 4.43. Slightly elevated in upper normal range. Levothyroxine increased to 125 mcg daily. 4. Hypertension?continue home medications 5. Acid reflux disease?continue PPI 6. DVT prophylaxis?low molecular weight heparin Case management consulted. PT OT already ordered. Patient might need rehab depending upon her functional status. Charges/Coding Visit Charges Inpatient E&M: 01638 Subs Hosp L2
[2021-05-29] MEDS: traZODone 100 MG Tablet PO (22:22)
[2021-05-29] MEDS: Aspirin E.C. 81 MG Tablet PO (22:22)
[2021-05-30] VITALS (8 sets, daily range): BP systolic 117–145; BP diastolic 54–76; PULSE 58–76; RESP 18–20; TEMP 36.5–36.8; O2SAT 89–95
[2021-05-30] MEDS: Levothyroxine 125 MCG Tablet PO (04:24)
[2021-05-30 08:44] LABS: Anion Gap 7 (5-15); BUN 21 mg/dL (7-18); BUN/Creat Ratio 30.1 RATIO (10-20); Calcium,Total 8.6 mg/dL (8.5-10.1); Chloride 104 mmol/L (98-107); EST Glomerular Filtration Rate 87 mL/min (>60); Est Glom Filt Rate - Afr Amer 105 mL/min (>60); Estimated Creatinine Clearance 40.83 ml/min; Glucose 122 mg/dL (74-106); Sodium Level 141 mmol/L (136-145)
--- NOTE | 2021-05-30 09:04 | CASEMGMT ---
Social Work Note SW faxed updated clinicals to [facility]. Plan: [facility] pending pre-cert Cielo Guerin SERVICE CENTER MANAGER, PERSONAL INJURY LITIGATION PARALEGAL
--- NOTE | 2021-05-30 09:19 | CASEMGMT ---
Notified Daysi at [facility] intake that pt will go to [facility] pending precert.
[2021-05-30] MEDS: Lisinopril 40 MG Tablet PO (09:36)
[2021-05-30] MEDS: Enoxaparin 40 MG/0.4 ML Syringe SC (09:36)
[2021-05-30] MEDS: amLODIPine 10 MG Tablet PO (09:36)
[2021-05-30] MEDS: Senna/Docusate Sodium 1 Tablet 2 TABLET PO (09:36)
[2021-05-30] MEDS: Cholecalciferol (VIT D3) 25 MCG TABLET (1,000 UNITS) 125 MCG PO (09:37)
[2021-05-30] MEDS: Psyllium 1 PACKET PO (09:37)
[2021-05-30] MEDS: Paroxetine 20 MG Tablet 40 MG PO (09:37)
[2021-05-30] MEDS: Pantoprazole Sodium 40 MG Tablet PO (09:37)
[2021-05-30] MEDS: Carvedilol 6.25 MG Tablet PO (09:38)
[2021-05-30] MEDS: Potassium Chloride Oral Tablet 20 MEQ 40 MEQ PO (09:38)
[2021-05-30] MEDS: Gabapentin 300 MG Capsule PO (09:38)
[2021-05-30] MEDS: dexAMETHasone 4 MG Tablet 6 MG PO (09:38)
[2021-05-30] MEDS: Atorvastatin Calcium 20 MG Tablet PO (09:38)
[2021-05-30] MEDS: Dicyclomine 10 MG Capsule PO (09:38)
--- NOTE | 2021-05-30 09:50 | CASEMGMT ---
Social Work Note JOSI received call from pt's daughter Iliana requesting updating on pt. JOSI informed Iliana that pre-cert for [facility] is still pending. Iliana asked if this worker could have pt complete HCPOA. JOSI informed Iliana that SW can check with pt to see if she wants to complete documents. Iliana states that [facility] needs Escript for pt to admit to their LONG-TERM. JOSI informed Iliana that once pt is ready to leave [facility] their SW/life care planner will need to provide clinicals to [facility] once pt is ready to leave their unit so any information they need will need to be sent by [facility]. Iliana states understanding. JOSI will ask pt about HCPOA as time allows. Plan: [facility] pending pre-cert Cielo Guerin CORPORATE AUDITOR, ASSISTANT STORE MANAGER SALES
[2021-05-30] MEDS: Acetaminophen 325 MG Tablet 650 MG PO ×2 (09:52→14:00)
--- NOTE | 2021-05-30 11:02 | PN.HOSP_ITS ---
Objective Data Objective Data Vital Signs: Vital Signs Temp Pulse Resp BP Pulse Ox 98.3 F 76 18 133/64 H 95 05/30/21 09:31 05/30/21 09:31 05/30/21 09:31 05/30/21 09:31 05/30/21 09:31 Oxygen Flow Rate (L/min) [At 0 REST on Room Air] Oxygen Flow Rate (L/min) 2 Oxygen Delivery Method Room Air Weight: 130 lb 1.164 oz Body Mass Index (BMI) 23.0 Intake & Output: Intake and Output for Last 24 Hours 05/28/21 05/29/21 05/30/21 23:59 23:59 23:59 Intake Total 650 / 850 700 / 700 Balance 650 / 850 700 / 700 Lab / Micro Data Result Diagrams: 05/29/21 08:04 05/30/21 08:14 Labs: Laboratory Results - last 24 hr 05/30/21 08:14: Sodium 141, Potassium 3.0 L, Chloride 104, Carbon Dioxide 30.0, Anion Gap 7, BUN 21 H, Creatinine 0.70, Estim Creat Clear Calc 40.83, Est GFR (MDRD) Af Amer 105, Est GFR (MDRD) Non-Af 87, BUN/Creatinine Ratio 30.1 H, Glucose 122 H, Calcium 8.6 Micro: Microbiology 05/26/21 18:55 Blood Culture (Wb) - No Site/Description Given Blood Culture - Preliminary No growth in 48 hours. 05/26/21 17:00 Blood Culture (Wb) - Anticubital Left Blood Culture - Preliminary No growth in 48 hours. 05/26/21 17:21 Mucosa - Nasopharyngeal Influenza Types A,B Direct FA (KANDY) - Final 05/26/21 17:00 Nasal Secretion SARS-CoV-2 Antigen (Rapid) - Final SARS-CoV-2 (COVID 19) Physical Exam Narrative Patient moved bowels twice yesterday. Complain of pleuritic left lower rib pain on coughing. Cough mainly dry. General: Alert, Oriented x3, Cooperative, fatigue HEENT: Atraumatic, PERRLA, EOMI, Normocephalic Oral: No Gingival or Mucosal Lesions/ Ulcerations Neck: Supple, No JVD, Negative Carotid Bruits Chest/lungs: Air entry diminished in bilateral lung bases. Mild tenderness over left lower ribs. No crepitation/rhonchi. No hypoxia Cardiovascular: Regular rate, Regular Rhythm, Normal S1, Normal S2, No murmurs Abdomen: Bowel Sounds Present, Soft, Non Tender, Non-Distended. No mass palpable : No renal angle tenderness. No suprapubic tenderness. Extremities: No edema, Capillary Refill Less than 3 Seconds Skin: No rashes, No breakdown Musculoskeletal: No Tenderness to Palpation of Joints or Extremities. Muscle 4/5 at major joints of all 4 extremities Neurological: Cranial nerves II-XII grossly intact, DTR 2+/4 and Symmetrical, Neuro grossly intact Psych/Mental Status: Flat affect Charges/Coding Visit Charges Inpatient E&M: 36788 Subs Hosp L2 Assessment/Plan Assessment/Plan (1) Chest pain, unspecified: CODE(S): R07.9 - Chest pain, unspecified QUALIFIERS: Chest pain type: unspecified Qualified Code(s): R07.9 - Chest pain, unspecified (2) Hypothyroidism: CODE(S): E03.9 - Hypothyroidism, unspecified QUALIFIERS: Hypothyroidism type: acquired Qualified Code(s): E03.9 - Hypothyroidism, unspecified (3) Essential hypertension: CODE(S): I10 - Essential (primary) hypertension (4) GERD (gastroesophageal reflux disease): CODE(S): K21.9 - Gastro-esophageal reflux disease without esophagitis QUALIFIERS: Esophagitis presence: esophagitis presence not specified Qualified Code(s): K21.9 - Gastro-esophageal reflux disease without esophagitis (5) COVID: CODE(S): U07.1 - COVID-19 PLAN: 1. 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 Patient is admitted to general medical floor for observation. Continue Covid precautions per routine protocol, oxygen supplemental to keep pulse ox more than 92 to 94%. Chest x-ray and CTA chest individually reviewed. Emphysematous findings with blebs and bullae. No mass. No pleural effusion, no pneumothorax. No clinically significant consolidation/groundglass opacity consistent with pneumonia. 05/28: Discussed with case preparer and liner regarding SNF. Awaiting pre-CERT. Mild Covid infection with no hypoxia or tachypnea or pneumonia. 05/29: Awaiting pre-CERT 05/30: Patient complain of left sided chest pain/rib pain on coughing. Patient is allergic to NSAIDs therefore cannot have Motrin or misaligned. Flexeril 5 mg 3 times daily as needed and K pad ordered. Awaiting pre-CERT. Discussed with case preparer and liner. 2. Deconditioning and overall poor self-care for the past several days? prealbumin level is low 12.9. Service Representative is consulted. 3. Hypothyroidism continue Synthroid TSH: 4.43. Slightly elevated in upper normal range. Levothyroxine increased to 125 mcg daily. 4. Hypertension?continue home medications 5. Acid reflux disease?continue PPI 6. DVT prophylaxis?low molecular weight heparin Case management consulted. PT OT already ordered. Patient might need rehab depending upon her functional status. Discharge plan, long-term awaiting pre-CERT.
--- NOTE | 2021-05-30 11:05 | CASEMGMT ---
Social Work Met with patient in room. This social media director following up with patient on advanced care planning and communicating that patient daughter request for patient to complete documents. Patient states I have Dementia and is not comfortable with completing documents. Michel Guerin updated on above and plans to updated patient daughter. Ellen Humphreys MSW, [employer]
--- NOTE | 2021-05-30 14:20 | CASEMGMT ---
Social Work Note SW placed a call to [facility] and spoke with Zhanna. Zhanna states pre-cert is still pending. Plan: [facility] pending pre-cert Cielo Guerin MSW, INSTRUMENTATION CONTROLS ENGINEER
--- NOTE | 2021-05-30 15:08 | TREXTCAR_ITS ---
Diet 05/26/21 22:50 Diet: Regular - General Food consistency:: Regular Liquid Consistency:: Regular/Thin Routine Orders/Code Status Suppository Type: Dulcolax 10mg Suppository Frequency: Daily PRN Code Status: Full Code Therapies Weight Bearing: Weight bearing as tolerated Extremity Affected:: Bilateral Lower Physical Therapy: Eval and Treat Occupational Therapy: Eval and Treat Speech Therapy: Eval and Treat Problem/Diagnosis (1) Chest pain, unspecified: Status: Acute (2) Hypothyroidism: Status: Acute (3) Essential hypertension: Status: Acute (4) GERD (gastroesophageal reflux disease): Status: Acute (5) COVID: Status: Acute Allergies/Procedures Done in Hospital Allergies iodine Allergy (Severe, Verified 05/26/21 20:26) Anaphylaxis DOES OK WITH PREMEDICATION 05/26/21 NSAIDS (Non-Steroidal Anti-Inflamma Allergy (Verified 05/26/21 15:09) Anaphylaxis Penicillins Allergy (Verified 05/26/21 15:09) Hives Sulfa (Sulfonamide Antibiotics) Allergy (Verified 05/26/21 15:09) Unknown Type of Care/Length of Stay Estimated LOS: Convalescent Care Less Than 30 days Type of Care Needed: Skilled Rehab Potential: Good Prognosis: Good Additional Orders/Day of Discharge Day of Discharge: 05/30/21 Dietary and Speech Recommendations Dietitian Recommendations/Changes: continue regular diet; recommend ensure compact w/ meals if PO intake declines- pt declines supplements at this time. Discharge Plan Admission Admit Date/Time: 05/26/21 21:56 Primary Reason for Your Visit: Generalized weakness/failure to thrive Attending Provider: Bradley Sr Primary Care Provider: Kaela Crane Discharge Orders/Prescriptions Prescriptions: New acetaminophen [Tylenol] 325 mg Tablet 650 mg PO Q4H PRN PRN (Reason: Pain 1-10 Or Fever) Qty: 0 RF: 0 sennosides-docusate sodium [Stool Softener-Stimulant Laxat] 8.6-50 mg Tablet 2 tab PO BID Qty: 0 RF: 0 potassium chloride [Klor-Con M20] 20 mEq Tablet,Er Particles/Crystals 40 meq PO DAILYCM Qty: 3 RF: 0 levothyroxine 125 mcg Tablet 125 mcg PO 0600 Qty: 0 RF: 0 Daily Fiber (psyllium-aspart) 3 gram Powder In Packet 1 packet PO BID Qty: 0 RF: 0 enoxaparin 40 mg/0.4 mL Syringe 40 mg subcut DAILY Qty: 14 RF: 0 dexamethasone 6 mg tablet 6 mg PO DAILY Qty: 5 RF: 0 pseudoephedrine-guaifenesin [Mucinex D] 60-600 mg tablet extended release 12 hr 1 tab PO BID Qty: 14 RF: 0 Continued oxycodone-acetaminophen 5-325 mg tablet 1 tab PO Q6H PRN (Reason: Pain) RF: 0 cholecalciferol (vitamin D3) 125 mcg (5,000 unit) capsule 125 mcg PO DAILY RF: 0 tizanidine 2 MG tablet 1 - 2 tab PO Q8H PRN (Reason: Muscle Spasm) RF: 0 gabapentin 300 MG capsule 300 mg PO BIDCM RF: 0 omeprazole 20 MG capsule 40 mg PO DAILY RF: 0 paroxetine HCl 40 MG tablet 40 mg PO DAILY RF: 0 rosuvastatin 10 MG tablet 10 mg PO QHS RF: 0 aspirin 81 MG tablet 81 mg PO QHS RF: 0 colestipol 1 gram tablet 1 g PO DAILY RF: 0 trazodone 100 MG tablet 100 mg PO QHS Qty: 0 RF: 0 dicyclomine 10 mg capsule 10 mg PO BID Qty: 60 RF: 0 amlodipine 10 mg tablet 10 mg PO DAILY RF: 0 carvedilol 6.25 mg tablet 6.25 mg PO BID Qty: 180 RF: 3 Changed lisinopril 40 mg tablet 20 mg PO DAILY Qty: 90 RF: 3 Discontinued levothyroxine 112 MCG tablet 112 mcg PO DAILY RF: 0 Referrals / Follow Up: Kaela Crane MD [Primary Care Provider] - Within 2 Weeks Disposition Disposition (needs filled in before D/C Order can be placed): [facility]
--- NOTE | 2021-05-30 15:20 | PCM.DC.SUM ---
Providers Date of Admission: 05/26/21 Date of Discharge: 05/30/21 Primary Care Physician: Dr. Kaela Crane MD Reason For Visit: COVID Diagnosis Discharge Diagnosis (1) Chest pain, unspecified: Status: Acute Code(s): R07.9 - Chest pain, unspecified Qualifiers: Chest pain type: unspecified Qualified Code(s): R07.9 - Chest pain, unspecified (2) Hypothyroidism: Status: Acute Code(s): E03.9 - Hypothyroidism, unspecified Qualifiers: Hypothyroidism type: acquired Qualified Code(s): E03.9 - Hypothyroidism, unspecified (3) Essential hypertension: Status: Acute Code(s): I10 - Essential (primary) hypertension (4) GERD (gastroesophageal reflux disease): Status: Acute Code(s): K21.9 - Gastro-esophageal reflux disease without esophagitis Qualifiers: Esophagitis presence: esophagitis presence not specified Qualified Code(s): K21.9 - Gastro-esophageal reflux disease without esophagitis (5) COVID: Status: Acute Code(s): U07.1 - COVID-19 Medications at Discharge Home Medications gabapentin 300 mg PO BIDCM 03/16/17 omeprazole 40 mg PO DAILY 03/16/17 paroxetine HCl 40 mg PO DAILY 03/16/17 rosuvastatin 10 mg PO QHS 03/16/17 tizanidine 1 - 2 tab PO Q8H PRN 03/16/17 aspirin 81 mg PO QHS 06/21/17 cholecalciferol (vitamin D3) 125 mcg (5,000 unit) capsule 125 mcg PO DAILY 10/29/20 oxycodone-acetaminophen 5 mg-325 mg tablet 1 tab PO Q6H PRN 10/29/20 dicyclomine 10 mg capsule 10 mg PO BID #60 cap 02/11/21 amlodipine 10 mg tablet 10 mg PO DAILY 03/21/21 carvedilol 6.25 mg tablet 6.25 mg PO BID #180 tab 04/03/21 colestipol 1 g PO DAILY 05/26/21 acetaminophen [Tylenol] 650 mg PO Q4H PRN PRN #0 tab 05/30/21 dexamethasone 6 mg PO DAILY #5 tab 05/30/21 enoxaparin 40 mg SUBCUT DAILY #14 ml 05/30/21 levothyroxine 125 mcg PO 0600 #0 tab 05/30/21 lisinopril 20 mg PO DAILY #90 tab 05/30/21 potassium chloride [Klor-Con M20] 40 meq PO DAILYCM #3 tab 05/30/21 pseudoephedrine-guaifenesin [Mucinex D] 1 tab PO BID #14 tab 05/30/21 psyllium husk (aspartame) [Daily Fiber (psyllium-aspart)] 1 packet PO BID #0 ea 05/30/21 sennosides-docusate sodium [Stool Softener-Stimulant Laxat] 2 tab PO BID #0 tab 05/30/21 trazodone 100 mg PO QHS #0 tab 05/30/21 Hospital Course Summary of Care Provided Hospital Course: This 75-year-old female was admitted through ER for Covid-like symptoms mild shortness of breath, cough, along with the chest pain. Rapid COVID-19 antigen test was positive. CT angiogram did not show any pulmonary embolism. Troponin is normal. Acute coronary syndrome ruled out with serial negative troponin. Twelve-lead EKG shows low voltage QRS with poor R wave progression, undetermined rhythm possible A. fib. Her further hospital course and management as follows 1. 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 Patient is admitted to general medical floor for observation. Continue Covid precautions per routine protocol, oxygen supplemental to keep pulse ox more than 92 to 94%. Chest x-ray and CTA chest individually reviewed. Emphysematous findings with blebs and bullae. No mass. No pleural effusion, no pneumothorax. No clinically significant consolidation/groundglass opacity consistent with pneumonia. Patient hypoxia resolved. 05/30: Patient complain of left sided chest pain/rib pain on coughing. Patient is allergic to NSAIDs therefore cannot have Motrin or misaligned. Patient has tizanidine, Tylenol and oxycodone in her home medication. Patient on dexamethasone completed 5 days of treatment. Five more days of dexamethasone along with Mucinex D. 2. Deconditioning and overall poor self-care for the past several days? prealbumin level is low 12.9. Hot Strip Mill Supervisor is consulted. Vincent was failure to thrive. 3. Hypothyroidism continue Synthroid TSH: 4.43. Slightly elevated in upper normal range. Levothyroxine increased to 125 mcg daily. 4. Hypertension?continue home medications 5. Acid reflux disease?continue PPI 6. DVT prophylaxis?low molecular weight heparin Discharge medication reconciliation done. Discharge follow-up instructions completed. Discharge process discussed with the patient and all questions were answered to patient's satisfaction. Patient is discharged to SNF. Total time spent, exact 35 minutes on discharge meds reconciliation, examination, coordination of care with nurses and ancillary staff, review of imaging and blood test and discussion with the patient on follow-up instructions Physical Exam Narrative Patient was seen and examined on the day of discharge 05/30/2021 Please see progress note on the same date. Weight / BMI Weight Weight: 130 lb 1.164 oz Body Mass Index (BMI) 23.0 ABG / Lab / Microbiology Data Result Diagrams: 05/29/21 08:04 05/30/21 08:14 Laboratory: Laboratory Results - last 24 hr 05/30/21 08:14: Sodium 141, Potassium 3.0 L, Chloride 104, Carbon Dioxide 30.0, Anion Gap 7, BUN 21 H, Creatinine 0.70, Estim Creat Clear Calc 40.83, Est GFR (MDRD) Af Amer 105, Est GFR (MDRD) Non-Af 87, BUN/Creatinine Ratio 30.1 H, Glucose 122 H, Calcium 8.6 Microbiology: Microbiology 05/26/21 18:55 Blood Culture (Wb) - No Site/Description Given Blood Culture - Preliminary No growth in 48 hours. 05/26/21 17:00 Blood Culture (Wb) - Anticubital Left Blood Culture - Preliminary No growth in 48 hours. 05/26/21 17:21 Mucosa - Nasopharyngeal Influenza Types A,B Direct FA (KANDY) - Final 05/26/21 17:00 Nasal Secretion SARS-CoV-2 Antigen (Rapid) - Final SARS-CoV-2 (COVID 19) Meaningful Use Info Meaningful Use Diagnoses (Choose all that apply): None applicable Discharge Plan Admission Admit Date/Time: 05/26/21 21:56 Primary Reason for Your Visit: Generalized weakness/failure to thrive Attending Provider: Bradley Sr Primary Care Provider: Kaela Crane Discharge Orders/Prescriptions Prescriptions: New acetaminophen [Tylenol] 325 mg Tablet 650 mg PO Q4H PRN PRN (Reason: Pain 1-10 Or Fever) Qty: 0 RF: 0 sennosides-docusate sodium [Stool Softener-Stimulant Laxat] 8.6-50 mg Tablet 2 tab PO BID Qty: 0 RF: 0 potassium chloride [Klor-Con M20] 20 mEq Tablet,Er Particles/Crystals 40 meq PO DAILYCM Qty: 3 RF: 0 levothyroxine 125 mcg Tablet 125 mcg PO 0600 Qty: 0 RF: 0 Daily Fiber (psyllium-aspart) 3 gram Powder In Packet 1 packet PO BID Qty: 0 RF: 0 enoxaparin 40 mg/0.4 mL Syringe 40 mg subcut DAILY Qty: 14 RF: 0 dexamethasone 6 mg tablet 6 mg PO DAILY Qty: 5 RF: 0 pseudoephedrine-guaifenesin [Mucinex D] 60-600 mg tablet extended release 12 hr 1 tab PO BID Qty: 14 RF: 0 Continued oxycodone-acetaminophen 5-325 mg tablet 1 tab PO Q6H PRN (Reason: Pain) RF: 0 cholecalciferol (vitamin D3) 125 mcg (5,000 unit) capsule 125 mcg PO DAILY RF: 0 tizanidine 2 MG tablet 1 - 2 tab PO Q8H PRN (Reason: Muscle Spasm) RF: 0 gabapentin 300 MG capsule 300 mg PO BIDCM RF: 0 omeprazole 20 MG capsule 40 mg PO DAILY RF: 0 paroxetine HCl 40 MG tablet 40 mg PO DAILY RF: 0 rosuvastatin 10 MG tablet 10 mg PO QHS RF: 0 aspirin 81 MG tablet 81 mg PO QHS RF: 0 colestipol 1 gram tablet 1 g PO DAILY RF: 0 trazodone 100 MG tablet 100 mg PO QHS Qty: 0 RF: 0 dicyclomine 10 mg capsule 10 mg PO BID Qty: 60 RF: 0 amlodipine 10 mg tablet 10 mg PO DAILY RF: 0 carvedilol 6.25 mg tablet 6.25 mg PO BID Qty: 180 RF: 3 Changed lisinopril 40 mg tablet 20 mg PO DAILY Qty: 90 RF: 3 Discontinued levothyroxine 112 MCG tablet 112 mcg PO DAILY RF: 0 Referrals / Follow Up: Kaela Crane MD [Primary Care Provider] - Within 2 Weeks Disposition Disposition (needs filled in before D/C Order can be placed): [facility] Charges/Coding Addendum Addendum: Please cancel the billing charge of progress note [id number] of the same date. Instead, 18087 Visit Charges Inpatient E&M: 18029 Disch Hosp
--- NOTE | 2021-05-30 16:00 | CASEMGMT ---
Addendum entered by Cielo Guerin 05/30/21 18:57: JOSI placed a call to pt's CM at [facility]val[facility] and left message updating her that pt discharged to [facility] today. SW faxed discharge paperwork to [facility]. Original Note: Social Work Note SW received call from Zhanna at [facility] stating pre-cert has been obtained, pt can discharge to [facility] today. SW updated physician. JOSI faxed completed discharge paperwork to [facility] including transfer to extended care facility, signed medication list, any scripts, COVID tool. Original in SNF folder and copy on pt's chart. JOSI spoke with RN, pt to transport via wheelchair van. SW accessed trip assist and arranged transportation via wheelchair van for 5:00pm. Transportation form completed and placed on SNF folder and copy on pt's chart. JOSI placed a call to [facility] and spoke with Marbella and updated her on discharge and transportation time. SW updated RN on transportation time. SW in to speak with pt. SW updated pt that she will discharge to [facility] today. SW informed pt that this worker will update her daughter Iliana. Pt states understanding. JOSI placed a call to pt's daughter Iliana and updated her on discharge and transportation time to [facility] today. JOSI also updated Iliana that SW did ask pt about Advanced Directives and pt denied wanting to complete them at this time. JOSI informed Iliana that while pt is at [facility], SW there can assist pt in completing Advanced Directives if pt becomes agreeable to complete. Iliana states understanding. Plan: [facility] skilled today with Physician's transporting pt via wheelchair van at 5:00pm Cielo Guerin ICE HOCKEY COACH, FURNITURE MAKER
--- NOTE | 2021-05-30 16:40 | NURSING ---
Report called to Nataliya at [facility] at [phone]. Pt to be picked up at 5pm tonight.
== END 2021-05-30 17:20 | disposition skilled nursing facility (03) ==
LOC: ED 21:59 → MS3 22:07
PROVIDERS: Admitting Provider Family Medicine; Emergency Provider Emergency Medicine; PCP Family Medicine; Visit Provider Internal Medicine
DX: U07.1 COVID-19 (principal); J43.9 Emphysema, unspecified; J96.01 Acute respiratory failure with hypoxia; I95.9 Hypotension, unspecified; I10 Essential (primary) hypertension; E86.0 Dehydration; E78.2 Mixed hyperlipidemia; E03.9 Hypothyroidism, unspecified; K21.9 Gastro-esophageal reflux disease without esophagitis; M19.90 Unspecified osteoarthritis, unspecified site; E05.00 Thyrotoxicosis with diffuse goiter without thyrotoxic crisis or storm; R06.02 Shortness of breath; R94.31 Abnormal electrocardiogram [ECG] [EKG]; Z87.891 Personal history of nicotine dependence; Z79.899 Other long term (current) drug therapy; Z79.82 Long term (current) use of aspirin; Z79.890 Hormone replacement therapy
CPT/HCPCS: 36415; 71045; 71275; 80048; 80053; 83605; 83880; 84134; 84443; 84484; 85025; 85379; 87040; 87426; 87804; 93005; 94762; 96361; 96372; 96374; 96375; 97110; 97116; 97162; 97166; 97530; 97535; 97802; 99218; 99285; 99406; J7030; Q9967; A4216; G0378

== ENCOUNTER → 2021-12-25 | Outpatient (CLI) | payer MEDICARE, MEDICAID, SELFPAY ==
--- NOTE | 2021-12-25 13:04 | CT_ITS ---
STUDY: LOW DOSE CT LUNG CANCER SCREENING REASON FOR EXAM: Female, 76 years old. SCREENING. The patient smoked 1 1/2 pack per day for 50 years. Emphysema. RADIATION DOSAGE (If Supplied By Facility): CTDIvol = ( 1.59 ) mGy, DLP = ( 56.39 ) mGycm TECHNIQUE: No contrast was administered. Low dose technique was utilized (average mAS-38 and kVp 120). 1.25 mm axial source images with a slice interval of 1.25-mm were reconstructed in lung windows. 2.5 mm axial source images with a slice interval of 2.5-mm were reconstructed in lung windows. 5.0 mm axial source images with a slice interval of 5.0-mm were reconstructed in soft tissue windows. COMPARISON: Comparison is made with prior study dated 12/19/2020 and 05/26/2021. NODULES: No suspicious nodules are seen. Total lung nodules (excluding granulomas): Small calcified granuloma in the left upper lobe. Emphysema: Hyperinflation. The symphysis changes. Increased linear markings in the lingular segment of the left upper lobe with minimal volume loss as well as in the right middle lobe. This is unchanged and most likely represents scarring. Endobronchial lesion: None Aorta: Atherosclerotic calcific plaques. CORONARY ARTERIES: Coronary artery calcification is seen. Heart: Unremarkable Pulmonary artery: Unremarkable Mediastinal nodes: Unremarkable Other chest and abdominal findings: Increased kyphosis. Multilevel degenerative changes. CT/Low Dose CT Lung Screening IMPRESSION: Lung-RADS category 2 - Continue annual screening with LDCT in 12 months. IMPORTANT NOTES FOR USE: ACR Lung-RADS Version 1.1 Assessment Categories Release Date: 2018 Category: Coded 0-4 bases on nodule(s) with highest degree of suspicion. Negative screen is defined as categories 1 and 2; a positive screen is defined as categories 3 and 4. Category 3 and 4A nodules that are unchanged on interval CT should be coded as category 2, and individuals returned to screening in 12 months. Category 4X: Category 3 or 4 nodules with additional imaging findings that increase the suspicion of lung cancer, such as spiculation, GGN that doubles in size in 1 year, enlarged lymph notes, etc. Category Modifiers: S (significant finding unrelated to lung cancer) Electronically Signed: Dre Pham MD at 15:20 EDT ,
== END | disposition home or self-care (01) ==
LOC: CT 13:04
PROVIDERS: PCP Family Medicine; Referring Provider Family Medicine; Visit Provider Family Medicine
DX: Z12.2 Encounter for screening for malignant neoplasm of respiratory organs (principal); F17.210 Nicotine dependence, cigarettes, uncomplicated
CPT/HCPCS: 71271